=== PATIENT | female | born 1950 | race Caucasian/White ===

== ENCOUNTER → 2022-10-19 | Outpatient (CLI) | payer MEDICARE, SELFPAY ==
[2022-10-19 12:17] LABS: Absolute Lymphocyte Count 0.88 X10^3/uL (0.83-4.51); Absolute Neutrophil Count 5.7 X10^3/uL (2.0-7.7); Basophil# 0.02 X10^3/uL; Basophil% 0.3 % (0-1); Eosinophil# 0.19 X10^3/uL; Eosinophils% 2.6 % (0-5); Hematocrit 43.8 % (37-47); Hemoglobin 14.4 g/dL (12.0-15.0); Lymphocyte # 0.88 X10^3/ul (0.83-4.51); Lymphocyte % 12.1 % (19-41); Mean Corp Hgb Conc 32.9 g/dL (32-36); Mean Corpuscular Hgb 28.6 pg (27.0-32.0); Mean Corpuscular Volume 87.1 fL (81-99); Mean Platelet Vol. 10.7 fl (6.2-12.0); Monocyte# 0.48 X10^3/uL; Monocyte% 6.6 % (0-10); NRBC Flagged by Analyzer 0 % (0-5); Neutrophil % 78.1 % (47-70); Platelet Count 207 K/mm3 (150-450); RBC Distribution Width CV 14.1 % (11.6-14.6); Red Blood Count 5.03 M/mm3 (4.2-5.4); White Blood Count 7.3 K/mm3 (4.4-11.0)
[2022-10-19 12:40] LABS: AST(SGOT) 19 U/L (15-37); Alanine Aminotransfer ALT/SGPT 27 U/L (13-56); Albumin, Serum 3.8 g/dL (3.2-5.0); Alkaline Phosphatase 89 U/L (45-117); Anion Gap 6 (5-15); BUN 23 mg/dL (7-18); BUN/Creat Ratio 19.3 RATIO (10-20); Calcium,Total 9.4 mg/dL (8.5-10.1); Chloride 103 mmol/L (98-107); Cholesterol 149 mg/dL (200); Creatinine, Serum 1.19 mg/dL (0.55-1.02); EST Glomerular Filtration Rate 47 mL/min (>60); Est Glom Filt Rate - Afr Amer 57 mL/min (>60); Globulin 3.9 g/dL (2.2-4.2); Glucose 124 mg/dL (74-106); High Density Lipoprotein 49 mg/dL; Potassium 3.3 mmol/L (3.5-5.1); Protein, Total 7.7 g/dL (6.4-8.2); Sodium Level 140 mmol/L (136-145); T3 Uptake 32 % (30-39); T4 Free Direct 1.12 ng/dL (0.76-1.46); Thyroid Stim Hormone (TSH) 0.91 uIU/mL (0.358-3.74); Triglycerides 192 mg/dL; Very Low Density Lipoprotein 38 mg/dL (5-40)
== END | disposition home or self-care (01) ==
PROVIDERS: PCP Internal Medicine; Referring Provider Internal Medicine; Visit Provider Internal Medicine
DX: I10 Essential (primary) hypertension (principal)
CPT/HCPCS: 36415; 80053; 80061; 84439; 84443; 84479; 85025

== ENCOUNTER → 2023-01-25 | Outpatient (CLI) | payer MEDICARE, SELFPAY ==
[2023-01-25 12:18] LABS: Anion Gap 3 (5-15); BUN 14 mg/dL (7-18); Chloride 102 mmol/L (98-107); Creatinine, Serum 1.08 mg/dL (0.55-1.02); EST Glomerular Filtration Rate 53 mL/min (>60); Est Glom Filt Rate - Afr Amer 64 mL/min (>60); Glucose 123 mg/dL (74-106); Potassium 3.9 mmol/L (3.5-5.1); Sodium Level 137 mmol/L (136-145)
== END | disposition home or self-care (01) ==
LOC: BIMLAB 10:39
PROVIDERS: PCP Internal Medicine; Referring Provider Internal Medicine; Visit Provider Internal Medicine
DX: I10 Essential (primary) hypertension (principal)
CPT/HCPCS: 36415; 80048

== ENCOUNTER → 2024-08-11 | Outpatient (CLI) | payer MEDICARE, SELFPAY ==
--- OUTSIDE RECORDS SUMMARY | 2024-08-11 12:30 | XMS RPT_ITS | CCD ---
Author Organization [facility] Care Team Providers Care Collection Analyst Name Role Phone Fiorella Puente MD Primary Care Provider [phone] Cinthia Puente MD Primary Care Provider Cinthia Puente MD Primary Care Provider Kristin Mariee MD Unavailable [phone] Fiorella Puente MD Primary Care Provider [phone] Fiorella Puente MD Primary Care Provider Unava ilKristin France MD Unavailable [phone] CAITIE ROYAL Attending Unavailable MAR LILLY Referring Unavailable FIORELLA PUENTE Primary Care Unavailable Fiorella Puente MD Primary Care Provider Kristin Mariee MD Unavailable Fiorella Puente MD Primary Care Provider ALIREZA SHAY Attending Unava ilFIORELLA Nelson Primary Care Unavailable Fiorella Puente MD Primary Care Provider KRISTIN MARIEE Attending Unavailable FIORELLA PUENTE Primary Care Unavailable Allergies Allergy Classification Reported Allergen(s) Allergy Type Date of Onset Reaction(s) Facility Adhesive Tape (1 source) Adhesive Tape Substance Allergy 014 Rash [facility] Adrenergic Agonists (1 source) Pseudoephedrine Drug Allergy 016 Unknown [facility] Aminoglycosides (antibiotic) (1 source) Neomycin Drug Allergy 016 Unknown [facility] Amoxicillin / Clavulanate (1 source) Amoxicillin / Clavulanate Drug Allergy 016 Unknown [facility] Angiotensin 2 Receptor Blockers (ARB) (1 source) Losartan Drug Allergy 015 Rash, Swelling [facility] Chlorpheniramine / Phenylephrine / Phenylpropanolamine / phenyltoloxamine (1 source) Chlorpheniramine / Phenylephrine / Phenylpropanolamine / phenyltoloxamine Drug Allergy 016 Unknown [facility] Chlorthalidone (1 source) Chlorthalidone Drug Allergy 024 Shortness of Breath [facility] Contrast Media (2 sources) Contrast media Substance Allergy 014 Hives, Swelling [facility] Furosemide (1 source) Furosemide Drug Allergy 014 Rash [facility] hydroCHLOROthiazide (1 source) hydroCHLOROthiazide Drug Allergy 024 Shortness of Breath [facility] Iodine (and Iodine containting drugs) (1 source) Iodine Drug Allergy 022 Hives [facility] Latex (1 source) Latex Substance Allergy 018 Rash [facility] Lincosamides (antibiotic) (1 source) Clindamycin Drug Allergy 016 Unknown [facility] Macrolides (antibiotic) (1 source) Erythromycin Drug Allergy 016 Unknown [facility] Methenamine (2 sources) Methenamine Drug Allergy 016 Unknown, Other: See Comments [facility] Metoprolol (1 source) Metoprolol Drug Allergy 018 Unknown [facility] Minocycline (1 source) Minocycline Drug Allergy 016 Unknown [facility] Nitrofurantoin (1 source) Nitrofurantoin Drug Allergy 016 Unknown [facility] Opioid Agonists (1 source) HYDROcodone Drug Allergy 016 Unknown [facility] Penicillins (antibiotic) (1 source) Penicillins Drug Allergy 013 Itching, Anaphylaxis [facility] Quinolones (antibiotic) (2 sources) Ciprofloxacin Drug Allergy 015 Rash, Unknown [facility] Work Phone: strawberry allergenic extract (1 source) strawberry allergenic extract Drug Allergy 016 Unknown [facility] Sulfamethoxazole / Trimethoprim (1 source) Sulfamethoxazole / Trimethoprim Drug Allergy 06-07-[address] [facility] Sulfonamides (antibiotic) (1 source) Sulfonamides (Antibiotic) Drug Allergy Itching, Anaphylaxis [facility] (20 sources) Adhesive Tape; Translations: [ADHESIVE TAPE (ROSINS)] Allergy to substance [facility] (20 sources) Amoxicillin / Clavulanate; Translations: [AMOXICILLIN-POT CLAVULANATE] Drug Allergy [facility] (20 sources) Chlorpheniramine / Phenylephrine / Phenylpropanolamine / phenyltoloxamine; Translations: [NALDECON] Drug Allergy [facility] (20 sources) Ciprofloxacin; Translations: [CIPROFLOXACIN] Drug Allergy [facility] Work Phone: (20 sources) Clindamycin; Translations: [CLINDAMYCIN] Drug Allergy [facility] (20 sources) Contrast media; Translations: [CONTRAST DYE] Drug Allergy Hives, Rash [facility] (20 sources) Contrast media; Translations: [RED DYE] Drug Allergy Swelling [facility] (20 sources) Erythromycin; Translations: [ERYTHROMYCIN] Drug Allergy [facility] (20 sources) Furosemide; Translations: [FUROSEMIDE] Drug Allergy [facility] (20 sources) HYDROcodone; Translations: [HYDROCODONE] Drug Allergy [facility] (20 sources) Latex; Translations: [LATEX] Drug Allergy [facility] (20 sources) Losartan; Translations: [LOSARTAN] Drug Allergy Rash, Swelling [facility] Work Phone: (20 sources) Methenamine; Translations: [METHENAMINE MANDELATE] Drug Allergy [facility] (20 sources) Metoprolol; Translations: [METOPROLOL] Drug Allergy [facility] (20 sources) Minocycline; Translations: [MINOCYCLINE] Drug Allergy [facility] (20 sources) moxifloxacin; Translations: [MOXIFLOXACIN] Drug Allergy Unknown [facility] (20 sources) Neomycin; Translations: [NEOMYCIN] Drug Allergy Unknown [facility] (20 sources) Nitrofurantoin; Translations: [NITROFURANTOIN] Drug Allergy Unknown [facility] (19 sources) Penicillins; Translations: [PENICILLINS] Drug Intolerance Itching, Anaphylaxis [facility] (20 sources) Pseudoephedrine; Translations: [PSEUDOEPHEDRINE HCL] Drug Allergy [facility] (20 sources) Shellfish; Translations: [SHELLFISH CONTAINING PRODUCTS] Drug Allergy [facility] (20 sources) strawberry allergenic extract; Translations: [STRAWBERRY] Drug Allergy [facility] (20 sources) Sulfamethoxazole / Trimethoprim; Translations: [SULFAMETHOXAZOLE-TRI METHOPRIM] Drug Allergy [facility] (20 sources) Sulfonamides (Antibiotic); Translations: [SULFA (SULFONAMIDE ANTIBIOTICS)] Drug Intolerance Itching, Anaphylaxis [facility] (20 sources) Penicillins Drug Intolerance Itching, Anaphylaxis [facility] (15 sources) Adhesive agent; Translations: [ADHESIVE] Drug Allergy Rash [facility] (14 sources) Iodine; Translations: [IODINE] Drug Allergy Hives [facility] (14 sources) Methenamine; Translations: [METHENAMINE] Drug Allergy Other: See Comments [facility] (3 sources) IODINATED CONTRAST MEDIA; Translations: [IODINATED CONTRAST MEDIA] Propensity to adverse reactions to drug (disorder) [facility] Other [facility] (4 sources) Chlorthalidone; Translations: [CHLORTHALIDONE] Drug Allergy Shortness of Breath [facility] (4 sources) hydroCHLOROthiazide; Translations: [HYDROCHLOROTHIAZIDE] Drug Allergy Shortness of Breath [facility] Medications Current Medications Medication Drug Class(es) Dates Sig (Normalized) Sig (Original) atenolol 25 mg oral tablet (20 sources) beta-Adrenergic [place] Start: 09-13-2023 End: 03-11-2024 take 1 tablet by mouth once daily atenolol (TENORMIN) 25 mg tablet Take 1 tablet by mouth once daily 90 tablet 3 03/11/2024 Active Start: 02-20-2022 End: 09-22-2022 take 1 tablet by mouth once daily atenolol (TENORMIN) 25 mg tablet Take 1 tablet by mouth once daily 90 tablet 3 09/22/2022 Active Start: 06-21-2021 take 1 tablet by teja th once daily atenolol (TENORMIN) 25 mg tablet Take 1 tablet by mouth once daily. 60 tablet 3 06/21/2021 Active Comment on above: Take 1 tablet by teja th once daily. Take 1 tablet by teja th once daily Blood Pressure Monitor (BLOOD PRESSURE KIT) kit (20 sources) Start: 2017 Blood Pressure Monitor (BLOOD PRESSURE KIT) kit Indications: Essential hypertension 1 Each once daily. 1 Kit 0 06/05/2018 Active Comment on above: 1 Each once daily. cholecalciferol, vitamin D3, (VITAMIN D3 ORAL) (20 sources) cholecalciferol, vitamin D3, (VITAMIN D3 ORAL) Take by mouth. 0 Active Comment on above: Take by mouth. COMPOUNDED PRESCRIPTION (20 sources) Start: 2012 COMPOUNDED PRESCRIPTION bipap machine and all supplies, mask ect Settings 07/13 1 Units 0 06/04/2013 Active Comment on above: bipap machine and al l supplies, mask ect Settings 07/13 famotidine 20 mg oral tablet (1 source) Histamine-2 Receptor Antagonist Start: 2023 End: 2023 take 1 tablet by mouth every twelve hours as needed famotidine (PEPCID) 20 mg tablet Take 1 tablet by mouth two times a day as needed (allergy symptoms) for up to 7 days. 14 tablet 0 12/09/2023 12/16/2023 Active Comment on above: Take 1 tablet by teja th two times a day as needed (allergy symptoms) for up to 7 days. fexofenadine hydrochloride 60 mg oral tablet (20 sources) Histamine-1 Receptor Antagonist Start: 2021 take 1 tablet by mouth once daily fexofenadine (ELIZA ALLERGY) 60 mg tablet Indications: Cough present for greater than 3 weeks Take 1 tablet by mouth once daily. 10 tablet 0 11/17/2021 Active Comment on above: Take 1 tablet by teja th once daily. 12 hr guaiFENesin 600 mg extended release oral tablet (20 sources) Start: 2021 End: 2021 take 1 tablet by mouth twice daily MUCINEX 600 mg 12 hr tablet Indications: Shortness of breath Take 1 tablet by mouth twice daily. 60 tablet 0 01/10/2022 Active Comment on above: Take 1 tablet by teja th twice daily. hydroCHLOROthiazide 25 mg oral tablet (4 sources) Thiazide Diuretic Start: 2023 take 1 tablet by mouth once daily hydroCHLOROthiazide 25 mg tablet Take 1 tablet by mouth once daily. 30 tablet 3 11/29/2023 Active Comment on above: Take 1 tablet by teja th once daily. Magnesium (20 sources) take 2 tablets by mouth once daily Magnesium 200 mg tab Take 2 tablets by mouth once daily. Triple magnesium 400 mg 0 Active Comment on above: Take 2 tablets by mo [facility] once daily. Triple magnesium 400 mg Miscellaneous Medical Supply (20 sources) Start: 2021 Miscellaneous Medical Supply Indications: ARTURO treated with BiPAP [employer] In [employer] Bacterial Filter 5 Each 0 11/23/2021 Active Comment on above: [employer] In [employer] Marco Antonio terial Filter polyethylene glycol 400 4 mg/ml / propylene glycol 3 mg/ml ophthalmic solution (20 sources) PEG 400-Propylen e Glycol (SYSTANE) 0.4-0.3 % dpet Use in both eyes twice daily as needed. 0 Active PEG 400-Propylen e Glycol (SYSTANE) 0.4-0.3 % dpet Use in both eyes twice daily as needed. 0 Active Comment on above: Use in both eyes twi ce daily as needed. potassium chloride 10 meq extended release oral tablet (20 sources) Start: 09-13-2023 End: 03-11-2024 take 1 tablet by mouth once daily potassium chloride (K-TAB) 10 mEq tablet Take 1 tablet by mouth once daily 90 tablet 3 03/11/2024 Active Start: 11-15-2021 End: 06-16-2022 take 1 tablet by mouth once daily potassium chloride (K-TAB) 10 mEq tablet Take 1 tablet by mouth once daily 90 tablet 3 06/16/2022 Active Comment on above: Take 1 tablet by teja th once daily. Take 1 tablet by teja th once daily proparacaine hydrochloride 5 mg/ml ophthalmic solution (1 source) Local Anesthetic Start: 11-07-2022 End: 11-07-2022 proparacaine 0.5 % 1 Drop (ALCAINE) 0.25 mg, 0.5 mg dose 1.5 ml semaglutide 1.34 mg/ml pen injector (12 sources) Start: 10-27-2022 OZEMPIC 0.25 mg or 0.5 mg(2 mg/1.5 mL) pen INJECT 0.25 MG SUBCUTANEOUSLY EVERY WEEK FOR 4 DOSES 0 10/27/2022 Active Comment on above: INJECT 0.25 MG SUBCU TANEOUSLY EVERY WEEK FOR 4 DOSES tropicamide 10 mg/ml ophthalmic solution (1 source) Anticholinergic Start: 11-07-2022 End: 11-07-2022 tropicamide 1 % 1 Drop (MYDRIACYL) Zinc (20 sources) ZINC ORAL Take b y mouth. 0 Active Comment on above: Take by mouth. Completed/Discontinued Medications Medication Drug Class(es) Dates Sig (Normalized) Sig (Original) aspirin 325 mg oral tablet (20 sources) Platelet Aggregation Inhibitor, Nonsteroidal Anti-inflammatory Drug take 325 mg by mouth once daily ASPIRIN ORAL Take 325 mg by mouth once daily. 0 Active Comment on above: Take 325 mg by mouth once daily. chlorthalidone 25 mg oral tablet (20 sources) Thiazide-like Diuretic Start: 03-19-2023 End: 11-29-2023 take 1 tablet by mouth once daily chlorthalidone (HYGROTON) 25 mg tablet Take 1 tablet by mouth once daily. 90 tablet 3 03/19/2023 11/29/2023 Discontinued Start: 10-20-2021 End: 07-07-2022 take 1 tablet by mouth once daily chlorthalidone (HYGROTON) 25 mg tablet Take 1 tablet by mouth once daily 90 tablet 3 07/07/2022 Active Comment on above: Take 1 tablet by teja th once daily. Take 1 tablet by etja th once daily hydrALAZINE hydrochloride 50 mg oral tablet (20 sources) Arteriolar Vasodilator Start: 07-30-20 End: 11-08-19 take 1 tablet by mouth three times daily hydrALAZINE (APRESOLINE) 50 mg tablet Indications: Essential hypertension Take 1 tablet by mouth three times daily. 270 tablet 1 12/22/2022 11/08/2023 Discontinued Comment on above: Take 1 tablet by teja th three times daily. TAKE 1 TABLET BY TEJA TH THREE TIMES DAILY meloxicam 7.5 mg oral tablet (1 source) Nonsteroidal Anti-inflammatory Drug Start: 10-19-19 23 take 1 tablet by mouth once daily meloxicam (MOBIC) 7.5 mg tablet Take 7.5 mg by mouth once daily. 0 10/19/2022 Active Comment on above: Take 7.5 mg by mouth once daily. polyethylene glycol 3350 210675 mg / potassium chloride 2970 mg / sodium bicarbonate 6740 mg / sodium chloride 5860 mg / sodium sulfate 51465 mg powder for oral solution (1 source) Osmotic Laxative Start: 10-25-19 23 GAVILYTE-G 236-22.74-6.74 -5.86 gram suspension as directed. 0 10/25/2022 Active Comment on above: as directed. Problems Active Problems Problem Classification Problem Date Documented Da te Episodic/Chronic Cataract (20 sources) Bilateral pseudophakia; Translations: [Presence of intraocular lens] Onset: 05-10-2018 Resolved: 12-16-2019 03-29-2020 Chronic Essential hypertension (20 sources) Essential hypertension; Translations: [Essential (primary) hypertension] 12-01-2019 Chronic Inflammation; infection of eye (except that caused by tuberculosis or sexually transmitteddisease) (20 sources) Bilateral punctate keratitis of eyes; Translations: [Punctate keratitis, bilateral] Onset: 05-10-2018 05-10-2018 Chronic Other circulatory disease (2 sources) Carotid bruit; Translations: [Other specified symptoms and signs involving the circulatory and respiratory systems] Episodic Other connective tissue disease (20 sources) Fibromyalgia; Translations: [Fibromyalgia] 01-16-2014 Episodic Other diseases of veins and lymphatics (20 sources) Lymphedema praecox; Translations: [Lymphedema, not elsewhere classified] Onset: 03-15-2020 03-15-2020 Chronic Other eye disorders (20 sources) Bilateral vitreous floaters; Translations: [Other vitreous opacities, bilateral] Onset: 05-10-2018 05-10-2018 Chronic Other eye disorders (1 source) Tear film insufficiency; Translations: [Dry eye syndrome of bilateral lacrimal glands] Episodic Other lower respiratory disease (1 source) Dyspnea; Translations: [Shortness of breath] Episodic Other nutritional; endocrine; and metabolic disorders (20 sources) Morbid obesity; Translations: [Morbid (severe) obesity due to excess calories] Onset: 10-10-2016 10-10-2016 Chronic Other nutritional; endocrine; and metabolic disorders (20 sources) Body mass index 40+ - severely obese; Translations: [Morbid (severe) obesity due to excess calories] Onset: 06-14-2018 06-14-2018 Chronic Residual codes; unclassified (20 sources) Sleep apnea; Translations: [Sleep apnea, unspecified] Onset: 05-20-2013 10-03-2021 Chronic Residual codes; unclassified (2 sources) Obstructive sleep apnea syndrome; Translations: [Obstructive sleep apnea (adult) (pediatric)] Chronic Residual codes; unclassified (1 source) Active advance directive (copy within chart) ; Translations: [Other specified health status] Episodic Past or Other Problems Problem Classification Problem Date Documented Da te Episodic/Chronic Allergic reactions (20 sources) Allergy to drug; Translations: [Allergy status to unspecified drugs, medicaments and biological substances status] Onset: 10-10-2016 10-10-2016 Episodic Blindness and vision defects (20 sources) Regular astigmatism of left eye; Translations: [Regular astigmatism, left eye] Onset: 07-28-2019 07-28-2019 Episodic Blindness and vision defects (20 sources) Regular astigmatism of right eye; Translations: [Regular astigmatism, right eye] Onset: 07-28-2019 07-28-2019 Episodic Cancer of colon (20 sources) History of malignant neoplasm of colon; Translations: [Personal history of other malignant neoplasm of large intestine] Onset: 10-10-2016 10-10-2016 Episodic Other eye disorders (20 sources) H/O: R cataract extraction; Translations: [Cataract extraction status, right eye] Onset: 08-07-2019 12-16-2019 Episodic Residual codes; unclassified (20 sources) Edema; Translations: [Edema, unspecified] Onset: 12-26-2013 12-26-2013 Episodic Residual codes; unclassified (20 sources) Edema of lower extremity; Translations: [Localized edema] Onset: 01-18-2022 Resolved: 02-08-2024 Episodic Retinal detachments; defects; vascular occlusion; and retinopathy (20 sources) 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 02-08-2024 CNOV Office Visit (CARDST ) ----- PERCY WARE ([id number]) 1950 F Date Time Provider Department 02/08/24 2:00 PM KRISTIN MARIEE CARDSOmega During your visit today, we recorded the following information about you: Pulse Respiration Blood pressure Weight 100/minute 20/minute 136/82 135.2 kg Height 1.6 m Kristin Mariee MD 02/08/2024 2:39 PM [facility] [place] [facility] Department of Cardiovascular Medicine SECTION OF [facility] CARDIOLOG[facility] 02/08/2024 OUTPATIENT VISIT TYPE Established F/Up regarding Hypertension and ARTURO, medication noncompliance with multiple allergies. HISTORY OF PRESENT ILLNESS: Ms. 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 used homeopathic medications) in 1993 as she has at least 23 medical drug allergies noted in the chart and has occasional SOB and palpitations. Her blood pressure at home is between 135-140 mmHg while she is taking chlorthalidone 25 mg daily and hydralazine 50 mg 2 times a day. She is here today for HTN and ARTURO management. Patient states that last week she had a headache and elevated BP in the 140 systolic range and it remained that way for three days and took an extra dose of hydralazine and then resolved. Patient has no symptoms of chest pain. Patient has mild exertional shortness of breath. Dizziness - No Palpitations - No Leg edema - yes, but patient states it is improving as he is using a pump which was given to her by physical therapy for the leg swelling. Fatigue - No Snoring - sleep apnea - Yes, she claims to use BiPAP mask regularly at night. Patient drinks 1 - 2 cups of tea or caffeine containing beverages per day Patient does not smoke tobacco products. Patient drinks socially / uses small amount of alcohol periodically Patient denies recreational drug use / abuse. Social History Tobacco Use Smoking status: Never Smokeless tobacco: Never Vaping Use Vaping Use: Never used Substance Use Topics Alcohol use: No Drug use: No FAMILY HISTORY Problem Relation Age of Onset Diabetes Father Hypertension Father No Ocular Disease No Family History Cataract No Family History Glaucoma No Family History Detached Retina No Family History REVIEW OF SYSTEMS: SYSTEMIC: No fever, chills, or change in weight or appetite HEENT: No recent change in vision or hearing. Respiratory: No hemoptysis, cough. CARDIOVASCULAR: See HPI. GI: No recent nausea, vomiting or diarrhea. : No recent hematuria or dysuria. SKIN: No recent itching or eruption. PSYCH: No recent active anxiety or depression. HEMATOLOGY/ONCOLOGY: No recent diagnosis of bleeding or cancer. ENDOCRINE: No recent polyuria or heat intolerance. NEURO: No recent TIA, stroke or seizures. RHEUMATOLOGY: No recent active connective tissue disease. Rest of the review of system is unremarkable. PAST MEDICAL HISTORY Diagnosis Date Cancer (HCC) lung and liver Colon cancer (HCC) Fibromyalgia Hypertension Stroke (HCC) PAST SURGICAL HISTORY Procedure Laterality Date COLON SURGERY HX COLONOSCOPY FLX DX W/COLLJ SPEC WHEN PFRMD 2010 Colonoscopy HYSTERECTOMY HX KNEE SURGERY HX Left 2009 XCAPSL CTRC RMVL INSJ IO LENS PROSTH W/O ECP Left 08/06/2019 Cataract Extraction with PC IOL / LRI XCAPSL CTRC RMVL INSJ IO LENS PROSTH W/O ECP Right 12/11/2019 Cataract Extraction with PC (TORIC) IOL ALLERGIES Allergen Reactions Iodine [Contrast Dy* Hives Lasix [Furosemide] Rash Penicillins Itching, Anaphylaxis Red Dye Swelling Sulfa (Sulfonamide * Itching, Anaphylaxis Tape [Adhesive Tape* Rash Adhesive Rash Amoxicillin-Pot Cla* Unknown Chlorthalidone Shortness of Breath Ciprofloxacin Rash Clindamycin Unknown Erythromycin Unknown Hydrochlorothiazide Shortness of Breath Hydrocodone Unknown Iodinated Contrast * Rash Latex Rash Losartan Rash, Swelling Mandelamine [Methe* Unknown Methenamine Other: See Comments Metoprolol Unknown Minocycline Unknown Moxifloxacin Unknown Naldecon Unknown Neomycin Unknown Nitrofurantoin Unknown Pseudoephedrine Hcl Unknown Shellfish Containin* Unknown [place] Unknown Sulfamethoxazole-Tr* Unknown Iodine Hives CURRENT MEDICATIONS: hydrALAZINE (APRESOLINE) 50 mg tablet Take 50 mg by mouth as needed. Miscellaneous Medical Supply [employer] In Line Bacterial Filter Blood Pressure Monitor (BLOOD PRESSURE KIT) kit 1 Each once daily. COMPOUNDED PRESCRIPTION bipap machine and all supplies, mask ect Settings 07/13 atenolol (TENORMIN) 25 mg tablet Take 1 tablet by mouth once daily (Patient not taking: Reported on 02/08/2024) potassium chloride (K-TAB) 10 mEq tablet Take 1 tablet by mouth once daily (Patient not taking: Reported on 02/08/2024) hydroCHLOROth (more content not included)... Normal [facility] ECG COMPLETEon 02-08-2024 Atrial Rate 100 BPM [facility] Calculated [place] 60 degrees [facility] Calculated [place] 111 degrees [facility] Calculated [place] 26 degrees [facility] P-R Interval 174 ms [facility] QRS Duration 106 ms [facility] QT Interval 372 ms [facility] QTC Calculation (Bazett) 479 ms [facility] Ventricular Rate 100 BPM [facility] NORMAL SINUS RHYTHM POSSIBLE LEFT ATRIAL ENLARGEMENT INCOMPLETE RIGHT BUNDLE BRANCH BLOCK LEFT POSTERIOR FASCICULAR BLOCK ABNORMAL ECG Confirmed by LUZMA FARIA MD ([id number]) on 02/08/2024 2:58:55 PM [facility] NAME : PERCY WARE PID : [id number] : 1950 Gender : Female Race : ORD : [id number] Procedure Date : Feb 08 2024 14:05:48 Edit Date : Feb 08 2024 14:58:56 Diagnosis: NORMAL SINUS RHYTHM POSSIBLE LEFT ATRIAL ENLARGEMENT INCOMPLETE RIGHT BUNDLE BRANCH BLOCK LEFT POSTERIOR FASCICULAR BLOCK ABNORMAL ECG Confirmed by LUZMA FARIA MD ([id number]) on 02/08/2024 2:58:55 PM Test Reason : I10 Essential hypertension Location : 137 : STCARD Overread By : LUZMA FARIA MD Edited By : LUZMA FARIA MD Referred By : Tata MARIEE Acquired by : , [facility] [id number] 02-08-2024 ECG01 Ventricular Rate : 1 00 BPM Atrial Rate : 100 BPM P-R Interval : 174 ms QRS Duration : 106 ms Q-T Interval : 372 ms QTC Calculation(Bazett) : 479 ms Calculated [place] : 60 degrees Calculated [place] : 111 degrees Calculated [place] : 26 degrees NORMAL SINUS RHYTHM POSSIBLE LEFT ATRIAL ENLARGEMENT INCOMPLETE RIGHT BUNDLE BRANCH BLOCK LEFT POSTERIOR FASCICULAR BLOCK ABNORMAL ECG Confirmed by LUZMA FARIA MD ([id number]) on 02/08/2024 2:58:55 PM NAME : PERCY WARE PID : [id number] : 1950 Gender : Female Race : ORD : [id number] Procedure Date : Feb 08 2024 14:05:48 Edit Date : Feb 08 2024 14:58:56 Diagnosis: NORMAL SINUS RHYTHM POSSIBLE LEFT ATRIAL ENLARGEMENT INCOMPLETE RIGHT BUNDLE BRANCH BLOCK LEFT POSTERIOR FASCICULAR BLOCK ABNORMAL ECG Confirmed by LUZMA FARIA MD ([id number]) on 02/08/2024 2:58:55 PM Test Reason : I10 Essential hypertension Location : 137 : STCARD Overread By : LUZMA FARIA MD Edited By : LUZMA FARIA MD Referred By : Tata MARIEE Acquired by : Rebecca [facility] ED NOTEon 12-09-2023 ED NOTE HNO ID: [id number] Author: BALDEV GOEL, YANIRA Service: ? Author Type: Registered Nurse Type: ED Notes Filed: 12/10/2023 09:44 Note Text: Patient Call Back Information How are you doing ? no change Did we appropriately manage your pain? N/A Did you understand your discharge instructions? Yes Did you get your prescriptions filled? No Were you able to make a follow-up appointment with your physician? No Were you comfortable during your stay here? Yes Did a member of the ER nursing team round on you during your visit? Yes You will receive a patient satisfaction survey in the mail in the nest 2 weeks, please take the time to fill out the survey as your input from your ER visit is very important to us. Yes Can we do anything else to help you? No Normal [facility] ED NOTE HNO ID: [id number] Author: ERUM KELLEY RN Service: Emergency Medicine Author Type: Registered Nurse Type: ED Notes Filed: 12/09/2023 21:48 Note Text: Patient refused PO benadryl d/t only takes dye-free. Dr Shay advised. Patient can take her own benadryl when she gets home. Dc instr to fu w pmd, return prn. Patient is AANDO, wdp, resps appear unlabored. Does not appear to be in any distress. Ambulates from ER with her own walker Normal [facility] ED NOTE HNO ID: [id number] Author: JONELLE PERALTA, RN Service: Emergency Medicine Author Type: Registered Nurse Type: ED Notes Filed: 12/09/2023 20:15 Note Text: Pt to ED with c/o I think I am having an allergic reaction to hydrochlorothiazide I started this morning at 7am., I started feeling itchy so I took a benadryl around 9am, then tonight it started itching worse, feeling like my throat is thick, some chest pressure and shortness of breath, so I took one more benadryl, but it hasn't done much. Pt able to speak in full sentences without distress. Normal [facility] ED PROV NOTEon 12-09-2023 ED PROV NOTE HNO ID: [id number] Author: ALIREZA SHAY MD Service: Emergency Medicine Author Type: Physician Type: ED Provider Notes Filed: 12/10/2023 01:43 Note Text: ED Provider Note Patient Name: Percy Ware : 1950 SERVICE DATE: 12/09/23 History Patient presents with: Allergic Reaction Shortness of Breath Patient presents to the ED with her with concerns over an allergic reaction. Patient was just recently started on hydrochlorothiazide from chlorthalidone because of concerns for an allergy to this as well. Patient took her first dose of HCTZ this morning and shortly after she began having all over body itching associated with shortness of breath and chest tightness. She took 25mg of benadryl initially this morning and had initial remittent symptoms, however this evening, her symptoms came back and she came to the emergency department. Patient currently denies chest pain, and she states overall her symptoms are improving. Shortness of Breath Severity: Mild Duration: 1 day Timing: Intermittent Chronicity: Recurrent Relieved by: benadryl. Worsened by: Nothing Associated symptoms: no chest pain, no cough, no fever, no rash, no vomiting and no wheezing PAST MEDICAL HISTORY Diagnosis Date Cancer (HCC) lung and liver Colon cancer (HCC) Fibromyalgia Hypertension Stroke (HCC) PAST SURGICAL HISTORY Procedure Laterality Date COLON SURGERY HX COLONOSCOPY FLX DX W/COLLJ SPEC WHEN PFRMD 2009 Colonoscopy HYSTERECTOMY HX KNEE SURGERY HX Left 2009 XCAPSL CTRC RMVL INSJ IO LENS PROSTH W/O ECP Left 08/06/2019 Cataract Extraction with PC IOL / LRI XCAPSL CTRC RMVL INSJ IO LENS PROSTH W/O ECP Right 12/11/2019 Cataract Extraction with PC (TORIC) IOL FAMILY HISTORY Problem Relation Age of Onset Diabetes Father Hypertension Father No Ocular Disease No Family History Cataract No Family History Glaucoma No Family History Detached Retina No Family History Social History Tobacco Use Smoking status: Never Smokeless tobacco: Never Vaping Use Vaping Use: Never used Substance and Sexual Activity Alcohol use: No Drug use: No Sexual activity: Not on file Comment: Not asked at this visit ALLERGIES Allergen Reactions Iodine [Contrast Dy* Hives Lasix [Furosemide] Rash Penicillins Itching, Anaphylaxis Red Dye Swelling Sulfa (Sulfonamide * Itching, Anaphylaxis Tape [Adhesive Tape* Rash Adhesive Rash Amoxicillin-Pot Cla* Unknown Chlorthalidone Shortness of Breath Ciprofloxacin Rash Clindamycin Unknown Erythromycin Unknown Hydrochlorothiazide Shortness of Breath Hydrocodone Unknown Iodinated Contrast * Rash Latex Rash Losartan Rash, Swelling Mandelamine [Methe* Unknown Methenamine Other: See Comments Metoprolol Unknown Minocycline Unknown Moxifloxacin Unknown Naldecon Unknown Neomycin Unknown Nitrofurantoin Unknown Pseudoephedrine Hcl Unknown Shellfish Containin* Unknown [place] Unknown Sulfamethoxazole-Tr* Unknown Iodine Hives Review of Systems Constitutional: Negative for fatigue and fever. HENT: Negative for trouble swallowing and voice change. Respiratory: Positive for shortness of breath. Negative for cough, choking, chest tightness and wheezing. Cardiovascular: Negative for chest pain and palpitations. Gastrointestinal: Negative for nausea and vomiting. Skin: Negative for rash. pruritus Physical Exam Vitals [12/09/232002] BP Pulse Temp Temp src Resp SpO2 Weight Height 177/84 82 36.8 ?C (98.3 ?F) Temporal 20 99 % (!) 137.1 kg (302 lb 3.2 oz) 1.575 m (5' 2 ) Physical Exam Vitals and nursing note reviewed. Constitutional: General: She is not in acute distress. Appearance: Normal appearance. She is not ill-appearing or toxic-appearing. HENT: Head: Normocephalic and atraumatic. Eyes: General: Right eye: No discharge. Left eye: No discharge. Neck: Thyroid: No thyromegaly. Cardiovascular: Rate and Rhythm: Normal rate and regular rhythm. Heart sounds: No murmur heard. Pulmonary: Effort: Pulmonary effort is normal. No tachypnea or respiratory distress. Breath sounds: No decreased breath sounds, wheezing, rhonchi or rales. Musculoskeletal: Cervical back: Normal range of motion and neck supple. Right lower leg: No tenderness. Edema present. Left lower leg: No tenderness. Edema present. Lymphadenopathy: Cervical: No cervical adenopathy. Skin: General: Skin is warm and dry. Findings: No erythema or rash. Neurological: General: No focal deficit present. Mental Status: She is alert and oriented to person, place, and time. Mental status is at baseline. Psychiatric: Mood and Affect: Mood normal. Behavior: Behavior normal. Diagnostic Testing ED Labs Ordered and Reviewed - No data to display Procedures ED Course / Clinical Impression Clinical Impressions as of 12/10/23 0126 Allergic reaction, initial encounter - concern fo (more content not included)... Normal [facility] [place] [facility] CNPN Telephone (CARDST) ----- PERCY WARE ([id number]) 1950 F Date Time Provider Department 11/29/23 KRISTIN MARIEE CARDST During your visit today, we recorded the following information about you: Casandra Manley 11/29/2023 11:33 AM Signed Patient calling in regards to the chlorthalidone (HYGROTON) 25 mg tablet 90 tablet 3 03/19/2023 -- Sig: Take 1 tablet by mouth once daily. Sent to pharmacy as: chlorthalidone (HYGROTON) 25 mg tablet Class: Normal Route: ORAL Order: [id number] E-Prescribing Status: Receipt confirmed by pharmacy (03/19/2023 4:09 PM EDT) Stating the maternal child nurse has been changed and since she has had a reaction to the medicine with itching face eyes etc, patient did have to take benadryl and will not take this until it is figured out. The original maternal child nurse NIZAGEN please advise. She can not take ASCEND maternal child nurse Lay Estrella RN 11/29/2023 11:41 AM Signed Forward to Kristin Walter MD 11/29/2023 4:40 PM Signed He can take hydrochlorothiazide [address] of chlorthalidone I have sent her prescription to [facility] pharmacy today. Annamango Abiola Vargas 11/29/2023 5:03 PM Signed Before starting another medication patient would like to speak with Dr. Mariee or his nurse. She has questions and concerns. She can be reached at [phone]. Lay Estrella RN 11/30/2023 9:07 AM Signed Spoke to pt Reviewed medication change advised per Dr Mariee She is a bit agitated and does not want to begin new medicine yet, she wants to let her body get over the allergic reaction she had. She states that her throat was itching and she had to take Benadryl from the new manufactured medication. She currently denies any distress. She will begin the HCTZ on Sunday and let us know how it goes 16 minute phone discussion Lay Estrella RN 11/30/2023 4:14 PM Signed Kristin Mariee MD You 10 minutes ago (4:01 PM) She has 26 medication allergies. Thanks for re-assuring her. Kristin Allergies As of Date: 11/29/2023 Noted Allergy Reaction IODINE (CONTRAST DYE) 01/09/2014 4 - Hives LASIX (FUROSEMIDE) 12/29/2013 2 - Rash PENICILLINS 05/19/2013 9 - Itching 10 - Anaphylaxis RED DYE 01/09/2014 7 - Swelling SULFA (SULFONAMIDE ANTIBIOTICS) 05/19/2013 9 - Itching 10 - Anaphylaxis TAPE (ADHESIVE TAPE (ROSINS)) 01/09/2014 2 - Rash ADHESIVE 03/23/2022 2 - Rash AMOXICILLIN-POT CLAVULANATE 03/14/2016 16 - Unknown CIPROFLOXACIN 12/14/2014 2 - Rash CLINDAMYCIN 03/14/2016 16 - Unknown ERYTHROMYCIN 03/14/2016 16 - Unknown HYDROCODONE 03/14/2016 16 - Unknown IODINATED CONTRAST MEDIA 05/23/2022 2 - Rash LATEX 05/10/2018 2 - Rash LOSARTAN 12/14/2014 2 - Rash 7 - Swelling Mandelamine (METHENAMINE MANDELA*03/14/2016 16 - Unknown METHENAMINE 03/23/2022 14 - Other: See Comments METOPROLOL 05/14/2018 16 - Unknown MINOCYCLINE 03/14/2016 16 - Unknown MOXIFLOXACIN 03/14/2016 16 - Unknown NALDECON 03/14/2016 16 - Unknown NEOMYCIN 03/14/2016 16 - Unknown NITROFURANTOIN 03/14/2016 16 - Unknown PSEUDOEPHEDRINE HCL 03/14/2016 16 - Unknown SHELLFISH CONTAINING PRODUCTS 03/14/2016 16 - Unknown STRAWBERRY 03/14/2016 16 - Unknown SULFAMETHOXAZOLE-TRIMETHO PRIM 03/14/2016 16 - Unknown IODINE 03/23/2022 4 - Hives Date Reviewed: 11/22/2022 Reviewed by: Andria Gaines (Rn), RN - Fully Assessed Reason for Visit: reaction to medication [Other] Order(s):hydroCHLOROthiaz sang 25 mg tabletTake 1 tablet by mouth once daily.Disp: 30 tabletRfl: 3 Prescriptions as of 11/30/2023 - hydroCHLOROthiazide 25 mg tablet Take 1 tablet by mouth once daily. - atenolol (TENORMIN) 25 mg tablet Take 1 tablet by mouth once daily - potassium chloride (K-TAB) 10 mEq tablet Take 1 tablet by mouth once daily - OZEMPIC 0.25 mg or 0.5 mg(2 mg/1.5 mL) pen INJECT 0.25 MG SUBCUTANEOUSLY EVERY WEEK FOR 4 DOSES - MUCINEX 600 mg 12 hr tablet Take 1 tablet by mouth twice daily. - [employer] In Line Bacterial Filter - fexofenadine (ELIZA ALLERGY) 60 mg tablet Take 1 tablet by mouth once daily. - PEG 400-Propylene Glycol (SYSTANE) 0.4-0.3 % dpet Use in both eyes twice daily as needed. - ZINC ORAL Take by mouth. - cholecalciferol, vitamin D3, (VITAMIN D3 ORAL) Take by mouth. - Magnesium 200 mg tab Take 2 tablets by mouth once daily. Triple magnesium 400 mg - Blood Pressure Monitor (BLOOD PRESSURE KIT) kit 1 Each once daily. - COMPOUNDED PRESCRIPTION bipap machine and all supplies, mask ect Settings 07/13 Problem List As Of Date 11/29/2023 Noted Resolved Sleep apnea [G47.30] 05/20/2013 Edema [R60.9] 12/26/2013 Fibromyalgia [M79.7] Essential hypertension [I10] Morbid obesity due to excess calories (HCC) [E6*10/10/2016 History of colon cancer, stage IV [Z85.038] 10/10/2016 Personal history of allergy to medicinal agent *10/10/2016 Combined forms of age-re (more content not included)... 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 PT notified the next opening was January 06 if she wanted to reschedule. PT would like to speak with a nurse to decide if she should be seen next week or if she can wait. Please contact patient at [phone] Nya Hampton, YANIRA 11/08/2023 11:46 AM Signed Called patient. Had in depth conversation with patient. Patient stated she is a long hauler COVID patient. C/o on going fatigue and cough. Denies new or worsening symptoms . Stated she has seen her PCP every 3-4 months (out of network) and stated provider has assessed and addressed. No new concerns. Patient expressed hesitation about coming into office for 11/12/2023 appointment. Doesn't wish to get expose to any illness going around. Patient aware appointment can be switched to virtual instead. Patient requesting to reschedule to a later date so she is able to rest and avoid any illnesses's. Patient accepted next available Dr. Mariee , 02/2024. Patient informed if any new symptoms or concerns to update office for sooner appointment. Patient verbalized understanding. Patient stated she hasn't been taking hydralazine 50mg for at least a year. BP has been good at home, readings 120's/70's, HR 60-70's. KENIA note: 05/29/2022 HTN: - 132/84 in office today controlled with hydralazine 50 mg once daily (pt taking this dose on her own) and chlorthalidone 25 mg one time a day. If BP is uncontrolled will increase hydralazine to 50mg two to three times daily. - atenolol 25 mg once daily to decrease blood pressure and heart rate. Patient aware will forward update to Dr. Fito Mariee, Kristin Swann MD 11/08/2023 6:01 PM Signed Noted, I discontinued hydralazine in the medication record. Allergies As of Date: 11/08/2023 Noted Allergy Reaction IODINE (CONTRAST DYE) 01/09/2014 4 - Hives LASIX (FUROSEMIDE) 12/29/2013 2 - Rash PENICILLINS 05/19/2013 9 - Itching 10 - Anaphylaxis RED DYE 01/09/2014 7 - Swelling SULFA (SULFONAMIDE ANTIBIOTICS) 05/19/2013 9 - Itching 10 - Anaphylaxis TAPE (ADHESIVE TAPE (ROSINS)) 01/09/2014 2 - Rash ADHESIVE 03/23/2022 2 - Rash AMOXICILLIN-POT CLAVULANATE 03/14/2016 16 - Unknown CIPROFLOXACIN 12/14/2014 2 - Rash CLINDAMYCIN 03/14/2016 16 - Unknown ERYTHROMYCIN 03/14/2016 16 - Unknown HYDROCODONE 03/14/2016 16 - Unknown IODINATED CONTRAST MEDIA 05/23/2022 2 - Rash LATEX 05/10/2018 2 - Rash LOSARTAN 12/14/2014 2 - Rash 7 - Swelling Mandelamine (METHENAMINE MANDELA*03/14/2016 16 - Unknown METHENAMINE 03/23/2022 14 - Other: See Comments METOPROLOL 05/14/2018 16 - Unknown MINOCYCLINE 03/14/2016 16 - Unknown MOXIFLOXACIN 03/14/2016 16 - Unknown NALDECON 03/14/2016 16 - Unknown NEOMYCIN 03/14/2016 16 - Unknown NITROFURANTOIN 03/14/2016 16 - Unknown PSEUDOEPHEDRINE HCL 03/14/2016 16 - Unknown SHELLFISH CONTAINING PRODUCTS 03/14/2016 16 - Unknown STRAWBERRY 03/14/2016 16 - Unknown SULFAMETHOXAZOLE-TRIMETHO PRIM 03/14/2016 16 - Unknown IODINE 03/23/2022 4 - Hives Date Reviewed: 11/22/2022 Reviewed by: Andria Gaines (Rn), RN - Fully Assessed Reason for Visit: Question [1327] Cmt: See note Prescriptions as of 11/08/2023 - atenolol (TENORMIN) 25 mg tablet Take 1 tablet by mouth once daily - potassium chloride (K-TAB) 10 mEq tablet Take 1 tablet by mouth once daily - chlorthalidone (HYGROTON) 25 mg tablet Take 1 tablet by mouth once daily. - OZEMPIC 0.25 mg or 0.5 mg(2 mg/1.5 mL) pen INJECT 0.25 MG SUBCUTANEOUSLY EVERY WEEK FOR 4 DOSES - MUCINEX 600 mg 12 hr tablet Take 1 tablet by mouth twice daily. - M[employer] In Line Bacterial Filter - fexofenadine (ELIZA ALLERGY) 60 mg tablet Take 1 tablet by mouth once daily. - PEG 400-Propylene Glycol (SYSTANE) 0.4-0.3 % dpet Use in both eyes twice daily as needed. - ZINC ORAL Take by mouth. - cholecalciferol, vitamin D3, (VITAMIN D3 ORAL) Take by mouth. - Magnesium 200 mg tab Take 2 tablets by mouth once daily. Triple magnesium 400 mg - Blood Pressure Monitor (BLOOD PRESSURE KIT) kit 1 Each once daily. - COMPOUNDED PRESCRIPTION bipap machine and all supplies, mask ect Settings 07/13 Problem List As Of Date 11/08/2023 Noted Resolved Sleep apnea [G47.30] 05/20/2013 Edema [R60.9] 12/26/2013 Fibromyalgia [M79.7] Essential hypertension [I10] Morbid obesity due to excess calories (HCC) [E6*10/10/2016 History of colon cancer, stage IV [Z85.038] 10/10/2016 Personal history of allergy to medicinal agent *10/10/2016 Combined forms of age-related cataract of b (more content not included)... Normal [facility] ANES POSTPROC EVALon 023 ANES POSTPROC EVAL HNO ID: [id number] Author: Caitie Royal MD Service: ? Author Type: Anesthesiologist Type: Anesthesia Postprocedure Evaluation Filed: 11/22/2022 11:00 AM Note Text: POST ANESTHESIA EVALUATION NOTE : 1950 Procedure Summary Date: 11/22/22 Room / Location: [facility] Anesthesia Start: 819 Anesthesia Stop: 08 Procedure: COLONOSCOPY SCREENING Diagnosis: Personal history of colon cancer Scheduled Providers: Mar Lilly MD; Clau Loza APRN.FISHERIES OFFICER; Caitie Royal MD Responsible Provider: Caitie Royal MD Anesthesia Type: MAC ASA Status: 3 Anesthesia Type: MAC Last Vitals Vitals Value Taken Time BP 120/65 11/22/22 0930 Temp 36.6 ?C (97.9 ?F) 11/22/22 0857 Pulse 60 11/22/22 0945 Resp 14 11/22/22 0945 SpO2 93 % 11/22/22 0945 Post Anesthesia Patient Status Patient Evaluation: bedside. Anticipated Disposition: phase 2 then home. Neurological Status: aware and responsive. Pulmonary Status: breathing comfortably on room air Airway Control: returned to baseline unsupported. Cardiovascular Status: stable. Pain Management: clinically adequate Postoperative Hydration: acceptable. Intraoperative Events: no significant anesthesia events Post Operative Nausea/Vomiting Status: no significant post operative nausea or vomiting Recommendation: continue current plan of care. Anesthesia Observations No Documentation SIGNATURE: Caitie Royal MD PATIENT NAME: Percy Ware DATE: November 22, 2022 TIME: 10:59 AM CSN: [id number] Normal [facility] ANES PRE-OPon 11-22-2022 ANES PRE-OP HNO ID: [id number] Author: Caitie Royal MD Service: ? Author Type: Anesthesiologist Type: Anesthesia Preprocedure Evaluation Filed: 11/22/2022 8:27 AM Note Text: ANESTHESIOLOGY DAY OF SURGERY NOTE : 1950 Procedure Information Anesthesia Start Date/Time: 11/22/22 0820 Scheduled providers: Mar Lilly MD; Clau Loza APRN.FISHERIES OFFICER; Caitie Royal MD Procedure: COLONOSCOPY SCREENING Location: [facility] Estimated body mass index is 59.81 kg/m? as calculated from the following: Height as of 05/29/22: 157.5 cm (5' 2 ). Weight as of 05/29/22: 148.3 kg (327 lb). Most recent hematocrit and potassium results: Hematocrit 43.9 08/25/2022 Potassium 4.0 08/25/2022 Relevant Problems ANESTHESIA (+) Sleep apnea (CPAP nightly.) CARDIO (+) Essential hypertension (-) Angina at rest (HCC) (-) Angina of effort (HCC) NEURO-PSYCH (+) History of colon cancer, stage IV PULMONARY (+) Sleep apnea (CPAP nightly.) I - PHYSICAL EVALUATION AIRWAY Patient intubated: No. Tracheostomy tube not present Mallampati: II. TM distance: >3 FB. Neck ROM: full ROM without neurological symptoms. Mouth opening: adequate. Short neck: yes. Thick neck: yes Reyes present: yes DENTAL Dental findings: teeth intact. II - ANESTHESIA PLAN ASA Score: 3 Anesthetic Plan: MAC The patient is not a current smoker. NPO Status: adequate Beta German Monitoring Plan Monitoring plan: standard ASA. Post Procedure Analgesic Plan Postoperative analgesic plan: multimodal analgesia. Informed Consent Anesthetic risks, benefits, alternatives, personnel and consent discussed: yes. Patient / Responsible Green Party agrees to proceed: yes Patient / Surrogate agrees to blood products: Yes DNR status not reviewed with patient and/or family prior to surgery. Significant changes in the patient condition since the History and Physical, not otherwise documented in primary service progress note: no. Potential Anesthesia issues that may suggest increased risk of complications or contraindication to planned procedure: none. Vitals Value Taken Time BP 159/77 11/22/22813 Pulse 77 11/22/22813 Resp 20 11/22/22813 Temp 37.1 ?C (98.8 ?F) 11/22/22813 SpO2 96 % 11/22/22813 Outpatient Medications as of 11/22/2022 Medication Sig - meloxicam (MOBIC) 7.5 mg tablet Take 7.5 mg by mouth once daily. - GAVILYTE-G 236-22.74-6.74 -5.86 gram suspension as directed. - atenolol (TENORMIN) 25 mg tablet Take 1 tablet by mouth once daily - chlorthalidone (HYGROTON) 25 mg tablet Take 1 tablet by mouth once daily - hydrALAZINE (APRESOLINE) 50 mg tablet TAKE 1 TABLET BY MOUTH THREE TIMES DAILY - PEG 400-Propylene Glycol (SYSTANE) 0.4-0.3 % dpet Use in both eyes twice daily as needed. - ZINC ORAL Take by mouth. - Magnesium 200 mg tab Take 2 tablets by mouth once daily. Triple magnesium 400 mg - OZEMPIC 0.25 mg or 0.5 mg(2 mg/1.5 mL) pen INJECT 0.25 MG SUBCUTANEOUSLY EVERY WEEK FOR 4 DOSES - potassium chloride (K-TAB) 10 mEq tablet Take 1 tablet by mouth once daily - MUCINEX 600 mg 12 hr tablet Take 1 tablet by mouth twice daily. - Miscellaneous [employer] In Line Bacterial Filter - fexofenadine (ELIZA ALLERGY) 60 mg tablet Take 1 tablet by mouth once daily. - cholecalciferol, vitamin D3, (VITAMIN D3 ORAL) Take by mouth. - Blood Pressure Monitor (BLOOD PRESSURE KIT) kit 1 Each once daily. - ASPIRIN ORAL Take 325 mg by mouth once daily. - COMPOUNDED PRESCRIPTION bipap machine and all supplies, mask ect Settings 07/13 No current facility-administered medications on file as of 11/22/2022. I have interviewed and examined the patient. I have reviewed the medical record and/or the pre-anesthesia evaluation, pertinent labs, and test results. This contains updated information obtained within 48 hours of Surgery/Procedure. SIGNATURE: Caitie Royal MD PATIENT NAME: Percy Ware DATE: November 22, 2022 TIME: 8:27 AM CSN: [id number] [facility] BRIEF OP NOTon 11-22-2022 BRIEF OP NOT HNO ID: [id number] Author: Mar Lilly MD Service: Gastroenterology Author Type: Physician Type: Brief Op Note Filed: 11/22/2022 8:59 AM Note Text: BRIEF OPERATIVE NOTE LOG ID: [id number] SURGERY/PROCEDURE DATE: 11/22/2022 INCISION/PROCEDURE START TIME: 8:29 AM INCISION CLOSE/PROCEDURE END TIME: 8:51 AM SURGEON(S)/PROCEDURALIST( S) AND SANITATION LABORER(S): Surgeon(s) and Role: * Mar Lilly MD - Proceduralist No Additional Staff PROCEDURE(S): Colonoscopy with snare polypectomy and biopsies ANESTHESIA: MAC FINDINGS: see dictated note ESTIMATED BLOOD LOSS: minimal SPECIMENS: ID Type Source Tests Collected by Time Destination A : Tissue ASCENDING COLON POLYP SURGICAL PATHOLOGY Mar Lilly MD 11/22/2022 8:40 AM B : Tissue HEPATIC FLEXURE POLYP SURGICAL PATHOLOGY Mar Lilly MD 11/22/2022 8:41 AM C : Tissue DESCENDING COLON POLYP SURGICAL PATHOLOGY Mar Lilly MD 11/22/2022 8:48 AM D : Tissue SIGMOID COLON POLYP SURGICAL PATHOLOGY Mar Lilly MD 11/22/2022 8:50 AM COMPLICATIONS: None PRE-OP/PRE-PROCEDURE DIAGNOSIS: #1 constipation #2 previous history of colon cancer and adenomatous colon polyps POST-OP/POST-PROCEDURE DIAGNOSIS: #1 small colon polyps #2 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 #4 small internal and prominent external hemorrhoids SIGNATURE: Mar Lilly MD PATIENT NAME: Percy Ware DATE: November 22, 2022 TIME: 8:57 AM PAGER/CONTACT #: [facility] HISTORY PHYSICALon HISTORY PHYSICAL HNO ID: [id number] Author: Mar Lilly MD Service: Gastroenterology Author Type: Physician Type: HANDP Filed: 11/22/2022 8:25 AM Note Text: UPDATED HISTORY AND PHYSICAL EXAMINATION PATIENT NAME: Percy Ware DATE of SERVICE: 11/22/2022 TIME of SERVICE: 8:25 AM PHYSICAL EXAM MUST BE COMPLETED ON ADMISSION The History and Physical (completed in the past 30 days) has been reviewed and the patient has been examined. The contents accurately reflect the patient's condition with the following additions or revisions since the HANDP was completed. Examination indicates no changes This HANDP can be found in the paper record. SIGNATURE: Mar Lilly MD DATE: November 22, 2022 TIME: 8:25 AM UPDATED HISTORY AND PHYSICAL EXAMINATION PATIENT NAME: Percy Ware DATE of SERVICE: 11/22/2022 TIME of SERVICE: 8:25 AM PHYSICAL EXAM MUST BE COMPLETED ON ADMISSION The History and Physical (completed in the past 30 days) has been reviewed and the patient has been examined. The contents accurately reflect the patient's condition with the following additions or revisions since the HANDP was completed. Examination indicates no changes This HANDP can be found in the paper record. SIGNATURE: Mar Lilly MD DATE: November 22, 2022 TIME: 8:25 AM [facility] OPERATIVE NOon 11-22-2022 OPERATIVE NO HNO ID: [id number] Author: Mar Lilly MD Service: Gastroenterology Author Type: Physician Type: Operative Report Filed: 11/23/2022 3:46 PM Note Text: [facility] - Operative Report PERCY WARE : 1950 AGE: 72. SEX: F PATIENT TYPE: O HOSP SVC: LOCATION: ATTENDING PHYSICIAN: CAITIE ROYAL [facility] NUMBER: [id number] DATE OF SURGERY/PROCEDURE: 11/22/2022 INCISION/PROCEDURE START TIME: The scope in time was 0829 hours. INCISION CLOSE/PROCEDURE END TIME: The scope out time was 0851 hours. PREOPERATIVE DIAGNOSIS: 1. Constipation. 2. Previous history of colon cancer and adenomatous colon polyps. POSTOPERATIVE DIAGNOSIS: 1. Small colon polyps. 2. Diverticular disease of colon. 3. Mild Melanosis coli. 4. Small internal and prominent external hemorrhoids. SURGEON: Mar Lilly M.D. SANITATION LABORER: Viri Ham. SURGERY/PROCEDURE: Colonoscopy with snare polypectomy and biopsies. ANESTHESIA: MAC. INDICATIONS: The patient is a 72-year-old female with previous history of colon cancer and adenomatous colon polyps. She now presents for a surveillance colonoscopy to rule out recurrent colon polyps and colonic neoplasm. Over the past several months, she has also experienced recurrent constipation. CONSENT: The procedure was explained to the patient and written informed consent was obtained from her prior to the procedure. DESCRIPTION OF PROCEDURE: The procedure was performed using monitored anesthesia care. She was positioned in the left lateral position. The Olympus PCF-H190L video colonoscope was advanced to the cecum under direct vision without difficulty. The position was confirmed by transillumination and by identification of cecal landmarks. The bowel preparation was good and visualization optimal. A 3 mm sessile polyp was seen in the ascending colon and was removed with the help of biopsy forceps. A 5 mm sessile polyp was seen at the hepatic flexure. This was transected using a cold snare and was recovered via the suction channel for histological assessment. A 3 mm sessile polyp was seen in the descending colon and was removed with the help of biopsy forceps. A diminutive polyp was seen in the sigmoid and was removed with the help of biopsy forceps. Few diverticula were seen in the left colon and several also identified in the transverse colon. The colonic mucosa mildly pigmented, consistent with mild Melanosis coli. No other mucosal abnormality was seen. In particular, no additional polyps or tumors were identified. Small internal and prominent external hemorrhoids were present. After inspection of the entire colon, the endoscope was gently retrieved. The patient tolerated the procedure well and was returned to the recovery area in good condition. IMPRESSION: 1. Small colon polyps. 2. Diverticular disease of colon. 3. Mild Melanosis coli. 4. Small internal and prominent external hemorrhoids. RECOMMENDATIONS: 1. Await histology. 2. High-fiber diet. Encouraged to drink 6-8 glasses of water daily. 3. Continue psyllium husk as before. 4. Hold aspirin for 7 days and meloxicam for 5 days. 5. Follow up in my office in 3 months or sooner should the need arise. Mar Lilly M.D. BKS:[id number] /[id number] [facility] SURGICAL PATHOLOGYon 023 CASE REPORT [facility] Comment on above: Order Comment: Neeraj giron Type: TISSUE SPECIMEN Ordering Facility: [facility] Address: [address] [place] [address] Result Comment: [facility] Pathology Report Case: [id number] Authorizing Provider: Mar Lilly MD Collected: 11/22/2022 08:40 AM Ordering Location: [facility] Received: 11/22/2022 10:58 AM Pathologist: Marvin Woods MD, PhD Specimens: A) - ASCENDING COLON POLYP B) - HEPATIC FLEXURE POLYP C) - DESCENDING COLON POLYP D) - SIGMOID COLON POLYP Performed By: #### S #### [facility] CLIA [id number] [address] [place], [place] [address]K [address] OF [facility] FINAL DIAGNOSIS [facility] Comment on above: Order Comment: Speci men Type: TISSUE SPECIMEN Ordering Facility: [facility] Address: [address] [place] [address] Result Comment: A. A scending colon, polyp, biopsy: - Tubular adenoma. B. Hepatic flexure, polyp, biopsy: -Tubular adenoma. C. Descending colon, polyp, biopsy: -Tubular adenoma. D. Sigmoid colon, polyp, biopsy: -Hyperplastic polyp. Performed By: #### S #### [facility] CLIA [id number] [address] [place] [address] OF [facility] FINAL PERFORMING LAB [facility] Comment on above: Order Comment: Speci men Type: TISSUE SPECIMEN Ordering Facility: [facility] Address: [address] [place] [address] Result Comment: Diag nostic interpretation performed at [facility], [address] [place] [address] CLIA# [id number] Office Technician: Josué Fox M.D. Performed By: #### S #### [facility] CLIA [id number] [address] [place] [address] GROSS DESCRIPTION [facility] Comment on above: Order Comment: Speci bree Type: TISSUE SPECIMEN Ordering Facility: [facility] Address: [address] [place] [address] Result Comment: A. A SCENDING COLON POLYP Received in formalin is one piece of thomas, soft tissue measuring 0.3 x 0.2 x 0.2 cm. Totally submitted in formalin in one cassette. B. HEPATIC FLEXURE POLYP Received in formalin are two pieces of thomas, soft tissue aggregating to 0.7 x 0.3 x 0.2 cm. Totally submitted in formalin in one cassette. C. DESCENDING COLON POLYP Received in formalin is one piece of thomas, soft tissue measuring 0.3 x 0.2 x 0.2 cm. Totally submitted in formalin in one cassette. D. SIGMOID COLON POLYP Received in formalin are two pieces of thomas, soft tissue aggregating to 0.5 x 0.2 x 0.2 cm. Totally submitted in formalin in one cassette. Gross examination performed at [facility], [address] [place], [place] [address], [place] [id number] 11/22/2022 3:20 PM Performed By: #### S #### [facility] CLIA [id number] [address] [facility] DESK [id number] [place] CAROTID ARTERIES KACI VAS LABon 06-07-2022 [facility] ECG COMPLETEon 05-29-2022 Atrial Rate 74 BPM [facility] Calculated [place] 23 degrees [facility] Calculated [place] 120 degrees [facility] Calculated T [place] 24 degrees [facility] P-R Interval 190 ms [facility] QRS Duration 106 ms [facility] QT Interval 424 ms [facility] QTC Calculation (Bazett) 470 ms [facility] Ventricular Rate 74 BPM [facility] History and Physical - Surgi geraldine Update < 30 dayson 12-11-2019 History and Physical - Surgical Update < 30 days History & Physical Reviewed: I have reviewed the History and Physical dated: 01-Dec-2019 History and Physical reviewed and relevant findings noted. Patient examined to review pertinent physical findings.: No significant changes Home Medications Reviewed: no changes noted Allergies Reviewed: no changes noted This patient has been seen and discussed with the attending physician responsible for performing the procedure: yes Signatures/Attestation/Ce rtification: Note Completion: Attending Provider Inpatient Certification StatementObservation patient/other outpatient visits Electronic Signatures: Frederick Mohamud) (Signed 11-Dec-2019 12:04) Authored: History & Physical Reviewed, Signatures/Attestation/Ce rtification Last Updated: 11-Dec-2019 12:04 by Frederick Mohamud) [facility] Preop Checkliston 12-11-2019 Preop Checklist Preop Checklist: Preop Checklist: Arrival [id number] Arrival Time11:45 Procedure TypeRt Phacoemulsification with toric intraocular lens implant Temperature C37 degrees C Temperature F98.7 degrees F Heart Rate73 beats per minute Respiratory Rate25 breath per minute Blood Pressure Avxmeggw328 mm/Hg Blood Pressure Fzstxushd25 mm/Hg NPO [id number] 23:30 ID Band Onyes Allergy Bandyes Consent Signedyes H&P Completeyes Anesthesia Assessment Completedyes EKG Performednot ordered Chest X-Ray Performednot ordered HCG Urine TestN/A Chlorhexadine Bath Givennot applicable Nasal Antiseptic Appliednot applicable Hair Washednot applicable Soap and water bath with hair shampoo the night before surgerynot applicable Hat placed on infant prior to transportnot applicable SCD's Appliednot applicable ANEL Hose Appliednot ordered Denturesnot applicable Prostheticsnot applicable Hearing Aidsnot applicable Valuables Securedleft in patient room Glasses / Contactsnot applicable Bowel Prepno Cardiovascular Assessment: Apicalregular Radial Pulsespalpable Pedal Pulsespalpable Extremitieswarm Respiratory Assessment: Respirationsunlabored Air Exchangeequal Breath Soundsclear Neurological Assessment: Level of Consciousnessalert Mobilitymoves all extremities Able to Express Selfyes Age Appropriateyes Emotional Statuscalm Preop Education: Surgical Site Infection Preventionyes Pain Scales and Managementyes Language / Communication: Language / CommunicationEnglish Electronic Signatures: Bela Schulz (RN) (Signed 11-Dec-2019 12:00) Authored: Preop Checklist Last Updated: 11-Dec-2019 12:00 by Bela Schulz (YANIRA) [facility] Patient Profile - Preop v2on 12-09-2019 Patient Profile - Preop v2 Profile: Initial Info: How to be AddressedKay(1) Spoken Language PreferredEnglish (1) Source of Informationpatient Are you currently using the Personal Electronic Health Record or [employer]yes (1) Instructions Givenappropriate clothing, bring responsible adult as the class c driver (procedure may be cancelled if no class c driver), center location, remove jewerly/piercings, time to arrive Prep Instructions Reviewedyes Instructed to Have No Fluids Aftermidnight Stated Reason for AdmissionRt phacoemulsification lens toric intraocular lens implant Primary Contact Name and NumberWarren (Patrick) Limitations on Visitors/Phone Callsnone Patient Belongingsremains with patient Patient Belongings Remaining with Patientclothing; jewelry; purse/wallet; jewelry on pt- 1 ring, watch, 1 pair earrings all other belongings with spouse Medications Brought to Hospitalno General Health: Weight in kg126 kilogram(s) Weight in djs190.7 pound(s) Weight Methodactual (measured) Scale Typestanding Height in cm157.4 centimeter(s) Height in feet5 feet Height in inches2 inch(es) Height Methodstated BMI (kg/m2)50.858 square meter Patient or Family Member Reaction to Anesthesiano previous reaction; no previous family member reaction Equipment Currently Used at Homebipap Blood Avoidance/Restrictionsnon e Health Mgmt: Symptoms/Conditions Managed at Homenone Barriers to Managing Healthnone Relationship/Environ: Resource/Environmental Concernsnone Services Anticipated at Transitionnone Lives Withalone Living Arrangementshouse Anticipated Transition [place] Substance: Current or Former Substance Use never: Cigarette/Tobacco(1), e-Cigarette/Vaping(1), Alcohol(1), Street Drugs Risk Screens: Advance Directive/DNRno Advance Directive Information Givenpatient/family declined During the past month, have you often been bothered by feeling down, depressed or hopelessno During the past month, have you often had little interest or pleasure in doing thingsno Have you had any thoughts of harming yourselfno Have you had any thoughts of harming anyone elseno Are you or have you been threatened or abused physically,emotionally or sexually abused by anyoneno Do you feel UNSAFE going back to the place you are livingno Patient is Able to be Assessed for Learningyes Factors Influencing Readiness to Learnmotivation to learn Factors that Impact Ability to Learnnone Devices/Methods Used to Communicatenone Learning Preferencesverbal instruction Cultural Considerationsnone Developmental Considerationsnone Evangelical Considerationsnone Other learner availableno Falls RiskPatient location auto qualifies him/her for HIGH RISK. Are there any cultural, spiritual, gnosticist practices/values/needs that are important for us to knowno Do you want a visit/item from Past[facility] Ca[facility]o Would you like your Wool Grader/Javascript Web Developer notifiedno Pain Scalenumerical 0-10 Pain Scale Educationteaching provided Current Pain Level6 = Moderate Acceptable Pain Level4 = Moderate Expression of Pain (nonverbal)none Lifestyle Changes/Adaptations in Response to Painno change Barriers to Reporting Painnone Pain Commentfell on Sat and her tailbone hurts when sitting up on it. Pain is better after laying down and repositioned in bed Chronic Painno Information Review: Allergies, Home Meds and Significant Events have been Reviewed and Verified with Patient/Familyyes Allergy, Intolerance, Adverse Event: Allergies: contrast (specific type unknown): Contrast, Hives/Urticaria, Active Red Dye: Food, Swelling/Edema, Active Naldecon DX Liquigel: Drug, Unknown, Active Methenamine Mandelate: Drug, Unknown, Active losartan: Drug, Unknown, Active sulfamethoxazole-trimetho prim: Drug, Unknown, Active amoxicillin-clavulanate: Drug, Unknown, Active iodine: Drug, Unknown, Active Lasix: Drug, Unknown, Active Cipro: Drug, Unknown, Active moxifloxacin: Drug, Unknown, Active clindamycin: Drug, Unknown, Active erythromycin: Drug, Unknown, Active hydrocodone: Drug, Unknown, Active Mandelamine: Drug, Unknown, Active metoprolol: Drug, Unknown, Active minocycline: Drug, Unknown, Active neomycin: Drug, Unknown, Active nitrofurantoin: Drug, Unknown, Active pseudoephedrine: Drug, Unknown, Active penicillins: Drug Category, Unknown, Active sulfa drugs: Drug Category, Unknown, Active Latex: Latex, Unknown, Active Tape - Adhesive, Bandaids, Paper: Environment, Unknown, Active Shell Fish: Food, Unknown, Active [place]: Food, Unknown, Active Problem List: Surg History: History of cataract extraction: Catalog Name: Cataract extraction status, unspecified eye Electronic Signatures: Bela Schulz (YANIRA) (Signed 11-Dec-2019 11:57) Authored: Profile, Additional Information Kenia Ham) (Signed 09-Dec-2019 12:09) Authored: Profile, Additional Information Last Updated: 11-Dec-2019 11:57 by Bela Schulz (YANIRA) References: 1. Data Referenced From Patient Profile - Preop v2 05-Aug-2019 09:09 Normal [facility] BD DXA - AXIAL SKELETONon BD DXA - AXIAL SKELETON * * *Final Report* * * DATE OF EXAM: Aug 26 2019 10:51AM LDX 0804 - BD DXA - AXIAL SKELETON / PROCEDURE REASON: Asymptomatic postmenopausal state * * * * Physician Interpretation * * * * Exam: Bone Mineral Densitometry (DEXA). Date: 08/26/2019 10:51 AM Comparison: None. Baseline Study. Indication: Post menopause. Technique: DXA Yobble-Tripology v,11.4 examination was performed on the lumbar spine and hip. Findings: 1. L1-L4 BMD is 1.177 g/cm2 which is 100% of peak bone mass compared to young normals which is 0 standard deviations relative to the mean of young normals (T-score). According to the World Health Organization criteria, this would be classified as normal. 2. Left hip BMD is 0.955 g/cm2 which is 95% of peak bone mass compared to young normals which is -0.4 standard deviations relative to the mean of young normals (T-score). According to the World Health Organization criteria, this would be classified as normal. 3. Left femoral neck BMD is 0.904 g/cm2 which is 87% of peak bone mass compared to young normals which is -1.0 standard deviations relative to the mean of young normals (T-score). According to the World Health Organization criteria, this would be classified as normal. IMPRESSION: Normal bone density. GENERAL RECOMMENDATIONS FOR PREVENTION OF BONE LOSS: 1. 1200 mg - 1500 mg calcium per day if no history of renal calculi for adults 50 years and over. 2. 800 - 1000 International Units of vitamin D3 per day if no history of renal calculi for adults 50 years and over. 3. Weight bearing exercise 4. Advise against smoking and recommend smoking cessation if appropriate. 5. Avoid excessive use of caffeine, soft drinks, and alcoholic beverages. The National Osteoporosis Foundation recommends that treatment be considered for all patients with T-scores of -2.5 or lower (-1 or lower if patient at high risk for accelerated bone loss). Survival Specialist: MATT Transcribe Date/Time: Aug 27 2019 9:16A Dictated by : KOTA ZACARIAS MD This examination was interpreted and the report reviewed and electronically signed by: KOTA ZACARIAS MD on Aug 27 2019 9:17AM EST Normal [facility] History and Physical - Surgi geraldine Update < 30 dayson 08-06-2019 History and Physical - Surgical Update < 30 days History & Physical Reviewed: I have reviewed the History and Physical dated: 28-Jul-2019 History and Physical reviewed and relevant findings noted. Patient examined to review pertinent physical findings.: No significant changes Home Medications Reviewed: no changes noted Allergies Reviewed: no changes noted This patient has been seen and discussed with the attending physician responsible for performing the procedure: yes Signatures/Attestation/Ce rtification: Note Completion: Attending Provider Inpatient Certification StatementObservation patient/other outpatient visits Electronic Signatures: Frederick Mohamud) (Signed 06-Aug-2019 07:11) Authored: History & Physical Reviewed, Signatures/Attestation/Ce rtification Last Updated: 06-Aug-2019 07:11 by Frederick Mohamud) [facility] Preop Checkliston 08-06-2019 Preop Checklist Preop Checklist: Preop Checklist: Arrival [id number] Arrival Time09:18 Procedure TypeLt cataract NPO [id number] 23:00 ID Band Onyes Allergy Bandyes Consent Signedyes H&P Completeyes Anesthesia Assessment Completedyes EKG Performednot ordered Chest X-Ray Performednot ordered HCG Urine TestN/A Chlorhexadine Bath Givennot applicable Nasal Antiseptic Appliednot applicable Hair Washednot applicable Soap and water bath with hair shampoo the night before surgerynot applicable SCD's Appliednot applicable ANEL Hose Appliednot ordered Denturesnot applicable Prostheticsnot applicable Hearing Aidsnot applicable Valuables Securedsent with family Glasses / Contactssent with family Bowel Prepno Cardiovascular Assessment: Apicalregular Respiratory Assessment: Respirationsunlabored regular Air Exchangeequal, good Breath Soundsclear Neurological Assessment: Level of Consciousnessalert, oriented Mobilitymoves all extremities Able to Express Selfyes Age Appropriateyes Emotional Statuscalm Preop Education: Surgical Site Infection Preventionyes Pain Scales and Managementyes Language / Communication: Language / CommunicationEnglish Electronic Signatures: Naomie Shin (YANIRA) (Signed 06-Aug-2019 10:09) Authored: Preop Checklist Last Updated: 06-Aug-2019 10:09 by Naomie Shin (YANIRA) [facility] Patient Profile - Preop v2on 08-05-2019 Patient Profile - Preop v2 Profile: Initial Info: How to be AddressedKay Spoken Language PreferredEnglish Source of Informationpatient Are you currently using the Personal Electronic Health Record or RemCare[employer]yes Instructions Givenappropriate clothing, bring responsible adult as the class c driver (procedure may be cancelled if no class c driver), center location, remove jewerly/piercings Prep Instructions Reviewedyes Instructed to Have No Fluids Aftermidnight Stated Reason for Admission cataract removed from left eye Primary Contact Name and NumberWarren (Patrick) Limitations on Visitors/Phone Callsnone Patient Belongingsremains with patient Patient Belongings Remaining with Patientclothing; jewelry; purse/wallet; jewelry on pt- 1 ring, watch, 1 pair earrings all other belongings with spouse Medications Brought to Hospitalno General Health: Weight in kg115.8 kilogram(s) Weight in uqu112.2 pound(s) Weight Methodstated Height in cm157.4 centimeter(s) Height in feet5 feet Height in inches2 inch(es) Height Methodstated BMI (kg/m2)46.741 square meter Patient or Family Member Reaction to Anesthesiano previous reaction; no previous family member reaction Equipment Currently Used at Homebipap Blood Avoidance/Restrictionsnon e Relationship/Environ: Resource/Environmental Concernsnone Services Anticipated at Transitionnone Lives Withalone Living Arrangementshouse [facility] Substance: Current or Former Substance Use never: Cigarette/Tobacco, e-Cigarette/Vaping, Alcohol, Street Drugs Risk Screens: Advance Directive/DNRno Advance Directive Information Givenpatient/family declined During the past month, have you often been bothered by feeling down, depressed or hopelessno During the past month, have you often had little interest or pleasure in doing thingsno Have you had any thoughts of harming yourselfno Have you had any thoughts of harming anyone elseno Are you or have you been threatened or abused physically,emotionally or sexually abused by anyoneno Do you feel UNSAFE going back to the place you are livingno Patient is Able to be Assessed for Learningyes Factors Influencing Readiness to Learnmotivation to learn Factors that Impact Ability to Learnnone Devices/Methods Used to Communicatenone Learning Preferencesverbal instruction Cultural Considerationsnone Developmental Considerationsnone Evangelical Considerationsnone Other learner availableno Falls RiskPatient location auto qualifies him/her for HIGH RISK. Are there any cultural, spiritual, gnosticist practices/values/needs that are important for us to knowno Do you want a visit/item from [facility] Would you like your Wool Grader/Javascript Web Developer notifiedno Pain Scalenumerical 0-10 Pain Scale Educationteaching provided Current Pain Level6 = Moderate Acceptable Pain Level4 = Moderate Expression of Pain (nonverbal)none Lifestyle Changes/Adaptations in Response to Painno change Barriers to Reporting Painnone Pain Commentfell on Sat and her tailbone hurts when sitting up on it. Pain is better after laying down and repositioned in bed Chronic Painno Information Review: Allergies, Home Meds and Significant Events have been Reviewed and Verified with Patient/Familyyes Allergy, Intolerance, Adverse Event: Allergies: Cipro: Drug, Unknown, Active moxifloxacin: Drug, Unknown, Active clindamycin: Drug, Unknown, Active erythromycin: Drug, Unknown, Active hydrocodone: Drug, Unknown, Active Mandelamine: Drug, Unknown, Active metoprolol: Drug, Unknown, Active minocycline: Drug, Unknown, Active neomycin: Drug, Unknown, Active nitrofurantoin: Drug, Unknown, Active pseudoephedrine: Drug, Unknown, Active iodine: Drug, Unknown, Active Lasix: Drug, Unknown, Active losartan: Drug, Unknown, Active penicillins: Drug Category, Unknown, Active sulfa drugs: Drug Category, Unknown, Active Latex: Latex, Unknown, Active Tape - Adhesive, Bandaids, Paper: Environment, Unknown, Active Shell Fish: Food, Unknown, Active [place]: Food, Unknown, Active Problem List: Medical History: Sleep apnea treated with nocturnal BiPAP: Catalog Name: Sleep apnea, unspecified Hypertension: Catalog Name: Essential (primary) hypertension Colon cancer: Catalog Name: Malignant neoplasm of colon, unspecified, Description: with mets to lung and liver Cataract: Catalog Name: Unspecified cataract Surg History: History of colectomy: Catalog Name: Acquired absence of other specified parts of digestive tract H/O: hysterectomy: Catalog Name: Acquired absence of both cervix and uterus Electronic Signatures: Naomie Shin (RN) (Signed 06-Aug-2019 09:41) Authored: Profile, Additional Information Kenia Ham (RN) (Signed 05-Aug-2019 09:13) Authored: Profile, Additional Information Last Updated: 06-Aug-2019 09:41 by Naomie Shin (RN) [facility] Clinical Intervention - Angelique guzman 08-04-2019 Clinical Intervention - Pharmacy Pharmacist's Clinical Intervention: Pharmacist intervention: Contacted physician, regarding allergies to pseudoephedrine, iodine, and moxifloxacin- Dr Dubose alerted and wants meds ordered Electronic Signatures: Marc Palma ([facility]) (Signed 04-Aug-2019 15:13) Authored: Pharmacist's Clinical Intervention Last Updated: 04-Aug-2019 15:13 by Marc Palma ([facility]) [facility] Metanephrines, Ur 24 hron Metanephrines, Ur 24 hr SEE BELOW Normal [facility] Comment on above: Result Comment: Carrie nephrine Ur 24Hr REPORTED 06/03/2019 15:00 Metanephrines,Urine 80 ug/24 hr 52-341 PLDEF Normetanephrines,Ur 240 ug/24 hr 88-444 PLDEF Total Metanephrines 320 ug/24 hr 140-785 PLDEF This test was developed and its performance characteristics determined by [facility]'s Kev Aaron [facility] Pathology and Laboratory Medicine [place] ([facility]). It has not been cleared or approved by the FDA. [facility] is regulated under CLIA as qualified to perform high complexity testing. This test is used for clinical purposes. It should not be regarded as investigational or for research. Performed By: #### M ETUX #### [place] [address] Lipid Profileon 05-29-2019 Cholesterol [Mass/Vol] 153 mg/dL Normal 0-[address] [facility] Comment on above: Performed By: #### L LIPD #### [place] [address] Cholesterol in HDL [Mass/Vol] 58 mg/dL Normal >[address] [facility] Comment on above: Performed By: #### L LIPD #### [place] [address] Cholesterol in LDL [Mass/Vol] 80 mg/dL Normal 0-[address] [facility] Comment on above: Performed By: #### L LIPD #### [place] [address] Cholesterol.total /Cholesterol in HDL [Mass ratio] 2.6 {ratio} Normal 1.8-5.[address] [facility] Comment on above: Performed By: #### L LIPD #### [place] [address] Triglyceride Blood 77 mg/dL Normal 0-[address] [facility] Comment on above: Performed By: #### L LIPD #### [place] [address] Risk Factor See Below Normal [facility] Comment on above: Result Comment: Card iac Risk Factor The CHD risk factor is based on the total Chol/HDL ratio. Other factors affect CHD risk such as hypertension, smoking, diabetes, severe obesity and premature CHD. Cardiac Risk Total Chol/HDL ratio Men Women 1/2 avg risk 3.4-4.9 3.3-6.3 Avg risk 5.0-9.5 6.4-7.0 2x avg risk 9.6-23.3 7.1-10.9 3x avg risk >23.4 >11.0 Performed By: #### L LIPD #### [facility] [address] [place] [address] Metanephrines, Ur 24 hron Collection Period 24 Normal [facility] Comment on above: Performed By: #### M ETUX #### [facility] [address] [place], [place] [address] Volume [address] [facility] Comment on above: Performed By: #### M ETUX #### [facility] [address] [place] [address] OCT MACULA CIRRUS OU (BOTH E YES) [facility] Vital Signs Date Time Vital Sign Value Performing Clinician Agapito mercado 02-08-2024 14: Body height 160 cm Kristin Mariee MD Work Phone: [facility] 02-08-2024 14:09040 Body mass index (BMI) [Ratio] 52.79 kg/m2 Kristin Mariee MD Work Phone: [facility] 02-08-2024 14: Body weight 135.17 kg Kristin Mariee MD Work Phone: [facility] 02-08-2024 [id number]:09040 Diastolic blood pressure 82 mm[Hg] Kristin Mariee MD Work Phone: [facility] 02-08-2024 14:09-0400 Heart rate 100 /min Kristin Mariee MD Work Phone: [facility] 02-08-2024 14:09-0400 Respiratory rate 20 /min Kristin Mariee MD Work Phone: [facility] 02-08-2024 14:09-0400 Systolic blood pressure 136 mm[Hg] Kristin Mariee MD Work Phone: [facility] 05-29-2022 13:39-0400 Body height 157.5 cm Kristin Mariee MD Work Phone: [facility] 05-29-2022 13:39-0400 Body weight 148.33 kg Kristin Mariee MD Work Phone: [facility] 05-29-2022 13:39-0400 Diastolic blood pressure 84 mm[Hg] Kristin Mariee MD Work Phone: [facility] 05-29-2022 13:39-0400 Heart rate 74 /min Kristin Mariee MD Work Phone: [facility] 05-29-2022 13:39-0400 Systolic blood pressure 132 mm[Hg] Kristin Mariee MD Work Phone: [facility] 01-10-2022 10:38-0400 Body height 157.7 cm Fiorella Puente MD Work Phone: [facility] 01-10-2022 10:38-0400 Body temperature 98.71 [degF] Fiorella Puente MD Work Phone: [facility] 01-10-2022 10:38-0400 Body weight 153.32 kg Fiorella Puente MD Work Phone: [facility] 01-10-2022 10:38-0400 Diastolic blood pressure 78 mm[Hg] Fiorella Puente MD Work Phone: [facility] 01-10-2022 10:38-0400 Heart rate 79 /min Fiorella Puente MD Work Phone: [facility] 01-10-2022 10:38-0400 Respiratory rate 18 /min Fiorella Puente MD Work Phone: [facility] 01-10-2022 10:38-0400 SaO2% (BldA) [Mass fraction] 96 % Fiorella Puente MD Work Phone: [facility] 01-10-2022 10:38-0400 Systolic blood pressure 122 mm[Hg] Fiorella Puente MD Work Phone: [facility] Encounters Encounter Date Encounter Type Care Provider Facility Start: 03-11-2024 Refill Stacy Fletcher [employer] SALESPERSON.INTERNATIONAL BANK MANAGER Work Phone: Cardiology Comment on above: Refill Request Start: 02-08-2024 End: 02-08-2024 ambulatory KRISTIN MARIEE Facility:[facility] Start: 02-08-2024 End: 02-08-2024 Patient encounter procedure Kristin Mariee MD Work Phone: Cardiology Comment on above: Essential hypertensi on (Primary Dx); Obesity, Class III, BMI 40-49.9 (morbid obesity) (HCC); Obstructive sleep apnea syndrome; Lymphedema praecox; Morbid obesity due to excess calories (HCC) Start: 12-14-2023 Refill Stacy Fletcher APRN.INTERNATIONAL BANK MANAGER Work Phone: Cardiology Comment on above: Refill Request Start: 12-09-2023 End: 12-09-2023 Emergency department patient visit ALIREZA SHAY Facility:[facility] Start: 11-29-2023 Telephone encounter Kristin Mariee MD Work Phone: Cardiology Comment on above: reaction to medicati on Start: 11-08-2023 Telephone encounter Kristin Mariee MD Work Phone: Cardiology Comment on above: Question (See note) Start: 08-24-2023 ambulatory Papo Alonso [facility] Work Phone: Pharm [facility] Comment on above: Allied Health Visit (Statin Use Review ) Start: 07-20-[address] [facility] Comment on above: Population Health Na vigation Outreach ([place] Attributed Member- PCP Attribution Update- Followed Dr Puente to Ele) Start: 06-21-2023 ambulatory Fiorella viveros MD Work Phone: Pharm [facility] Comment on above: Allied Health Visit (Medication Adherence Outreach ) Start: 02-20-2023 Patient Outreach Aud[facility] Comment on above: Erroneous encounter- disregard Start: 12-22-2022 Refill Kristin Mariee MD Work Phone: Cardiology Comment on above: Refill Request Start: 12-01-2022 ambulatory Jose Armando To [facility] Work Phone: Pharm [facility] Comment on above: medication adherence outreach Start: 11-22-[address] [facility] Facility: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); Dry eye syndrome of both eyes; Pseudophakia of both eyes Start: 09-22-2022 Refill Kristin Mariee MD Work Phone: Cardiology Comment on above: Refill Request Start: 07-06-2022 Refill Kristin Mariee MD Work Phone: Cardiology Comment on above: Refill Request Start: 06-27-2022 ambulatory [facility]man[facility] Comment on above: Population Health Na vigation Outreach ([place] Care Gaps) Start: 06-16-2022 Refill Kristin Mariee MD Work Phone: Cardiology Comment on above: Refill Request Start: 06-13-2022 Refill Kristin Mariee MD Work Phone: Cardiology Comment on above: Refill Request Start: 06-07-2022 End: 06-07-2022 Patient encounter procedure Ultrasound [place] [facility] Work Phone: Vascular Surgery Comment on above: Carotid bruit, unspe cified laterality Start: 05-29-2022 End: 05-29-2022 Patient encounter procedure Kristin Mariee MD Work Phone: Cardiology Comment on above: Essential hypertensi on (Primary Dx); Sleep apnea, unspecified type; Lymphedema praecox; Obesity, Class III, BMI >= 40; Carotid bruit, unspecified laterality; Status post cataract extraction and insertion of intraocular lens of right eye Start: 05-19-2022 End: 05-19-2022 ambulatory Viri Lemon PT [facility] Comment on above: Lymphedema praecox ( Primary Dx) Start: 05-15-2022 End: 05-15-2022 ambulatory Viri Lemon PT [facility] Comment on above: Lymphedema praecox ( Primary Dx) Start: 05-12-2022 End: 05-12-2022 ambulatory Viri Lemon PT [facility] Comment on above: Lymphedema praecox ( Primary Dx) Start: 05-08-2022 End: 05-08-2022 ambulatory Viri Lemon PT [facility] Comment on above: Lymphedema praecox ( Primary Dx) Start: 05-05-2022 End: 05-05-2022 ambulatory Viri Lemon PT [facility] Comment on above: Lymphedema praecox ( Primary Dx) Start: 05-01-2022 End: 05-01-2022 ambulatory Viri Lemon PT [facility] Comment on above: Lymphedema praecox ( Primary Dx) Start: 04-19-2022 End: 04-19-2022 ambulatory Viri Lemon PT [facility] Comment on above: Lymphedema praecox ( Primary Dx) Start: 04-14-2022 End: 04-14-2022 ambulatory Viri Lemon PT [place] [facility] Therapy Comment on above: Lymphedema praecox ( Primary Dx) Start: 04-12-2022 End: 04-12-2022 ambulatory Viri Lemon PT [place] [facility] Physical Therapy Comment on above: Lymphedema praecox ( Primary Dx) Start: 04-07-2022 End: 04-07-2022 ambulatory Viri Lemon PT [facility] Comment on above: Lymphedema praecox ( Primary Dx) Start: 03-31-2022 End: 03-31-2022 ambulatory Viri Lemon PT [facility] Comment on above: Lymphedema praecox ( Primary Dx) Start: 03-27-2022 End: 03-27-2022 ambulatory Viri Lemon PT [facility] Comment on above: Lymphedema praecox ( Primary Dx) Start: 03-24-2022 End: 03-24-2022 ambulatory Viri Lemon PT [facility] Comment on above: Lymphedema praecox ( Primary Dx) Start: 03-20-2022 End: 03-20-2022 ambulatory Viri Lemon PT [facility] Comment on above: Lymphedema praecox ( Primary Dx) Start: 02-28-2022 ambulatory Yesi Hernandez MA [facility] Comment on above: Population Health Na vigation Outreach ([place] Attribution ) Start: 02-20-2022 End: 02-20-2022 ambulatory Viri Lemon PT Work Phone: [facility] Comment on above: Lymphedema praecox ( Primary Dx) Start: 02-17-2022 End: 02-17-2022 ambulatory Viri Lemon PT Work Phone: [facility] Comment on above: Lymphedema praecox ( Primary Dx) Start: 02-13-2022 End: 02-13-2022 ambulatory Viri Lemon PT Work Phone: [facility] Comment on above: Lymphedema praecox ( Primary Dx); Lower extremity edema Start: 02-10-2022 End: 02-10-2022 ambulatory Viri Lemon PT Work Phone: [facility] Comment on above: Lymphedema praecox ( Primary Dx) Start: 02-06-2022 End: 02-06-2022 ambulatory Viri Lemon PT Work Phone: [facility] Comment on above: Lymphedema praecox ( Primary Dx) Start: 02-03-2022 End: 02-03-2022 ambulatory Viri Lemon PT Work Phone: [facility] Comment on above: Lower extremity tammy a (Primary Dx) Start: 01-27-2022 End: 01-27-2022 ambulatory Viri Lemon PT Work Phone: [facility] Comment on above: Lower extremity tammy a (Primary Dx) Start: 01-23-2022 End: 01-23-2022 ambulatory Viri Lemon PT Work Phone: [facility] Comment on above: Lower extremity tammy a (Primary Dx) Start: 01-18-2022 End: 01-18-2022 ambulatory Viri Lemon PT Work Phone: [facility] Comment on above: Lower extremity tammy a (Primary Dx) Start: 01-10-2022 End: 01-10-2022 Patient encounter procedure Fiorella Puente MD Work Phone: [facility] Comment on above: Essential hypertensi on (Primary Dx); ARTURO treated with BiPAP; Shortness of breath; Lower extremity edema; History of colon cancer, stage IV; Advance directive in chart Start: 12-30-2021 ambulatory Snow Navarro RN Project Construction Assistant Manager Comment on above: Primary Care Coordin ator- Other (HCPOA/Living Will) Procedures Date Procedure Procedure Detail Performing Clinician Start: 02-08-2024 Ecg routine ecg w/le ast 12 lds i&r only Kristin Mariee MD Work Phone: Start: 11-07-2022 Computerized ophthal wilbert imaging retina Santos Hugo MD Work Phone: Start: 08-25-2022 Lipid 1996 panel - S lizzy or Plasma Fiorella Puente MD Work Phone: Start: 06-07-2022 Duplex scan extracra nial art compl bi study Kristin Mariee MD Work Phone: Start: 05-29-2022 Ecg routine ecg w/le ast 12 lds w/i&r [facility] Provider Start: 05-18-2021 Adult depression scr eening assessment Snow Navarro RN Start: 05-14-2018 Mammography Snow Navarro RN Start: 05-25-2009 Colonoscopy Snow aNvarro RN Plan of Treatment Date Care Activity Detail Author Start: 05-08-2030 Urine microalbumin profile [facility] Start: 08-25-2027 Lipid 1996 panel - S lizzy or Plasma Lipid Screening [facility] Start: 08-25-2027 Lipid panel [facility] Start: 08-25-2027 LIPID SCREEN LIPID SCREEN [facility] Start: 08-25-2025 DIABETES SCREEN DIABETES SCREEN [facility] Start: 08-25-2025 Diabetes Screening Diabetes Screenin g [facility] Start: 12-05-2024 DIABETES SCREEN DIABETES SCREEN [facility] Start: 06-08-2024 Influenza vaccination Influenz a Vaccine (Season Ended) [facility] Start: 05-29-2024 LIPID SCREEN LIPID SCREEN [facility] Start: 10-08-2023 Advance Directive Discussion Advance Directive Discussion [facility] Start: 10-08-2023 Behavioral Health Screening Behavioral Health Screening [facility] Start: 10-08-2023 [facility] Start: 06-08-2023 Covid-19 Vaccine ( season) Covid-19 Vaccine () [facility] Start: 06-08-2023 Influenza vaccination [facility] Start: 01-10-2023 ANNUAL PCP TEAM FRAME RUNNER MAXI DISEASE VISIT ANNUAL PCP TEAM CHRONIC DISEASE VISIT [facility] Start: 01-10-2023 BP CONTROLLED (<130/80) BP CONTROLLE D (<130/80) [facility] Start: 12-13-2022 ANNUAL PCP TEAM FRAME RUNNER MAXI DISEASE VISIT ANNUAL PCP TEAM CHRONIC DISEASE VISIT [facility] Start: 10-08-2022 ADVANCE DIRECTIVE DISCUSSION ADVANCE DIRECTIVE DISCUSSION [facility] Start: 10-08-2022 DEPRESSION ASSESSMENT DEPRESSION ASS ESSMENT [facility] Start: 06-08-2022 Influenza vaccination [facility] Start: 05-18-2022 Adult depression screening assessment DEPRESSION SCREENING [facility] Start: 05-18-2022 BP CONTROLLED (<130/80) BP CONTROLLE D (<130/80) [facility] Start: 05-18-2022 COLORECTAL CANCER SCREENING COLORECTAL CANCER SCREENING [facility] Comment on above: Postponed from 04/17 (Declined at this time) Start: 05-18-2022 COVID-19 VACCINE (#1) COVID-19 VACCI NE (#1) [facility] Comment on above: Postponed from 04/17 (Declined at this time) Postponed from 10/18 (Declined at this time) Start: 05-18-2022 COVID-19 VACCINE (1) COVID-19 VACCIN E (1) [facility] Comment on above: Postponed from 04/17 (Declined at this time) Start: 05-18-2022 Mammography MAMMOGRAM [facility] Comment on above: Postponed from 05/14 (Declined at this time) Start: 05-18-2022 SHINGRIX VACCINE (1 of 2) SHINGRIX VACCINE (1 of 2) [facility] Comment on above: Postponed from 04/17 (Declined at this time) Start: 04-06-2022 Influenza vaccination INFLUENZA (#1) [facility] Comment on above: Postponed from 06/08 (Declined at this time) Start: 10-08-2021 ADVANCE DIRECTIVE DISCUSSION ADVANCE DIRECTIVE DISCUSSION [facility] Start: 10-08-2021 DEPRESSION ASSESSMENT DEPRESSION ASS ESSMENT [facility] Start: 05-20-2019 FECAL OCCULT BLOOD FECAL OCCULT BLOO D [facility] Start: 05-20-2019 Screening for malign ant neoplasm of colon Fecal Occult Blood [facility] Start: 05-14-2019 Mammography MAMMOGRAM [facility] Start: 05-21-2018 COLORECTAL CANCER SCREENING COLORECTAL CANCER SCREENING [facility] Start: 05-21-2018 Screening for malign ant neoplasm of colon Colorectal Cancer Screening [facility] Start: 05-25-2014 Colonoscopy COLONOSCOPY [facility] Start: 05-25-2014 Screening for malign ant neoplasm of colon Colonoscopy [facility] Start: 2013 Pneumococcal Vaccine : 65+ (1 - PCV) Pneumococcal Vaccine: 65+ (1 - PCV) [facility] Start: 2013 Pneumococcal Vaccine : 65+ (1 of 1 - PCV) Pneumococcal Vaccine: 65+ (1 of 1 - PCV) [facility] Start: 2013 PNEUMOCOCCAL: 65+ (1 - PCV) PNEUMOCOCCAL: 65+ (1 - PCV) [facility] Start: 2008 RSV Vaccine (1 - 1-d ose 60+ series) RSV Vaccine (1 - 1-dose 60+ series) [facility] Start: 1998 SHINGRIX VACCINE (1 of 2) SHINGRIX VACCINE (1 of 2) [facility] Start: 1993 COLOGUARD (FIT-DNA) COLOGUARD (FIT-D NA) [facility] Start: [address] COLONOGRAPHY [facility] Start: 1993 Screening for malign ant neoplasm of colon [facility] Start: 1993 SIGMOIDOSCOPY SIGMOIDOSCOPY [facility] Start: 1948 COVID-19 VACCINE (#1) COVID-19 VACCI NE (#1) [facility] ECG COMPLETE ECG COMPLETE ECG 05/29/2022 1:53 PM EDT [facility] End: 05-29-2023 US CAROTID ARTERIES [facility] US CAROTID ARTERIES [facility] Vascular Lab Routine Carotid bruit, unspecified laterality 1 Occurrences starting 05/29/2022 until 05/29/2023 [facility] Work Phone: Comment on above: 1 Occurrences starti ng 05/29/2022 until 05/29/2023 [facility] Immunizations Immunization Date Immunization Notes Care Provider Dixon lyons 05-08-2020 tetanus toxoid, redu [place] diphtheria toxoid, and acellular pertussis vaccine, adsorbed Snow Navarro RN [facility] Payers Date Payer Category Payer Unknown [facility] AND BLUE SHIELD [employer] O [id number] 2015-Present [phone] [address] [place] [address] [facility] [id number] 2015 Unknown [id number] 2015 Unknown [id number] Social History Date Type Detail Facility Start: 05-19-2013 End: 02-08-2024 Tobacco smoking status NHIS Never smoked tobacco [facility] Start: 05-19-2013 End: 02-08-2024 Tobacco use and exposure Smokeless tobacco non-user [facility] Start: 12-13-2021 End: 02-08-2024 Alcohol intake Current non-drinker of alcohol (finding) [facility] Start: 1950 Sex Assigned At Female [facility] Start: 11-13-2021 End: 08-25-2022 Exposure to SARS-CoV-2 (event) Not sure [facility] Start: 11-07-2022 End: 12-10-2023 History of Social function [facility] Start: 11-07-2022 End: 12-10-2023 Tobacco use panel [facility] Adult Depression Screening Assessment 0 [facility] Start: 05-13-2020 Gender identity Identifies as female gender (finding) [facility] Start: 05-13-2020 Sexual orientation Heterosexual (fin navin) [facility] Clinical Notes 07-28-2019 to 03-11-2024 Telephone Encounter - Cely Reaves MA - 03/11/2024 7:22 AM EDTTelephone Encounter - Cely Reaves MA - 03/11/2024 7:22 AM EDTPatient Kristin Vivar MD - 02/08/2024 2:05 PM EDT Note Date & Type Note Facility 03-11-2024 Telephone encounter Note Pharmacy electronically requests the following refill(s) Requested Prescriptions Pending Prescriptions Disp Refills atenolol (TENORMIN) 25 mg tablet [Pharmacy Med Name: Atenolol 25 MG Oral Tablet] 90 tablet 0 Sig: Take 1 tablet by mouth once daily potassium chloride (K-TAB) 10 mEq tablet [Pharmacy Med Name: Potassium Chloride ER 10 MEQ Oral Tablet Extended Release] 90 tablet 0 Sig: Take 1 tablet by mouth once daily [place] 02/08/2024 Nov Not scheduled Labs 08/2022 Cely Reaves MA [facility] 03-11-2024 Miscellaneous Notes Pharmacy electronically requests the following refill(s) Requested Prescriptions Pending Prescriptions Disp Refills atenolol (TENORMIN) 25 mg tablet [Pharmacy Med Name: Atenolol 25 MG Oral Tablet] 90 tablet 0 Sig: Take 1 tablet by mouth once daily potassium chloride (K-TAB) 10 mEq tablet [Pharmacy Med Name: Potassium Chloride ER 10 MEQ Oral Tablet Extended Release] 90 tablet 0 Sig: Take 1 tablet by mouth once daily [place] 02/08/2024 Nov Not scheduled Labs 08/2022 Cely Reaves MA documented in this encounter [facility] 02-08-2024 Note HNO ID: [id number] Author: KRISTIN MARIEE MD Service: ? Author Type: Physician Type: Progress Notes Filed: 02/08/2024 14:39 Note Text: [facility] [place] Susanna Pascal Department of Cardiovascular Medicine SECTION OF REGIONAL CARDIOLOGY [facility] 02/08/2024 OUTPATIENT VISIT TYPE Established F/Up regarding Hypertension and ARTURO, medication noncompliance with multiple allergies. HISTORY OF PRESENT ILLNESS: Ms. 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 used homeopathic medications) in 1993 as she has at least 23 medical drug allergies noted in the chart and has occasional SOB and palpitations. Her blood pressure at home is between 135-140 mmHg while she is taking chlorthalidone 25 mg daily and hydralazine 50 mg 2 times a day. She is here today for HTN and ARTURO management. Patient states that last week she had a headache and elevated BP in the 140 systolic range and it remained that way for three days and took an extra dose of hydralazine and then resolved. Patient has no symptoms of chest pain. Patient has mild exertional shortness of breath. Dizziness - No Palpitations - No Leg edema - yes, but patient states it is improving as he is using a pump which was given to her by physical therapy for the leg swelling. Fatigue - No Snoring - sleep apnea - Yes, she claims to use BiPAP mask regularly at night. Patient drinks 1 - 2 cups of tea or caffeine containing beverages per day Patient does not smoke tobacco products. Patient drinks socially / uses small amount of alcohol periodically Patient denies recreational drug use / abuse. Social History Tobacco Use Smoking status: Never Smokeless tobacco: Never Vaping Use Vaping Use: Never used Substance Use Topics Alcohol use: No Drug use: No FAMILY HISTORY Problem Relation Age of Onset Diabetes Father Hypertension Father No Ocular Disease No Family History Cataract No Family History Glaucoma No Family History Detached Retina No Family History REVIEW OF SYSTEMS: SYSTEMIC: No fever, chills, or change in weight or appetite HEENT: No recent change in vision or hearing. Respiratory: No hemoptysis, cough. CARDIOVASCULAR: See HPI. GI: No recent nausea, vomiting or diarrhea. : No recent hematuria or dysuria. SKIN: No recent itching or eruption. PSYCH: No recent active anxiety or depression. HEMATOLOGY/ONCOLOGY: No recent diagnosis of bleeding or cancer. ENDOCRINE: No recent polyuria or heat intolerance. NEURO: No recent TIA, stroke or seizures. RHEUMATOLOGY: No recent active connective tissue disease. Rest of the review of system is unremarkable. PAST MEDICAL HISTORY Diagnosis Date Cancer (HCC) lung and liver Colon cancer (HCC) Fibromyalgia Hypertension Stroke (HCC) PAST SURGICAL HISTORY Procedure Laterality Date COLON SURGERY HX COLONOSCOPY FLX DX W/COLLJ SPEC WHEN PFRMD 2009 Colonoscopy HYSTERECTOMY HX KNEE SURGERY HX Left 2009 XCAPSL CTRC RMVL INSJ IO LENS PROSTH W/O ECP Left 08/06/2019 Cataract Extraction with PC IOL / LRI XCAPSL CTRC RMVL INSJ IO LENS PROSTH W/O ECP Right 12/11/2019 Cataract Extraction with PC (TORIC) IOL ALLERGIES Allergen Reactions Iodine [Contrast Dy* Hives Lasix [Furosemide] Rash Penicillins Itching, Anaphylaxis Red Dye Swelling Sulfa (Sulfonamide * Itching, Anaphylaxis Tape [Adhesive Tape* Rash Adhesive Rash Amoxicillin-Pot Cla* Unknown Chlorthalidone Shortness of Breath Ciprofloxacin Rash Clindamycin Unknown Erythromycin Unknown Hydrochlorothiazide Shortness of Breath Hydrocodone Unknown Iodinated Contrast * Rash Latex Rash Losartan Rash, Swelling Mandelamine [Methe* Unknown Methenamine Other: See Comments Metoprolol Unknown Minocycline Unknown Moxifloxacin Unknown Naldecon Unknown Neomycin Unknown Nitrofurantoin Unknown Pseudoephedrine Hcl Unknown Shellfish Containin* Unknown [place] Unknown Sulfamethoxazole-Tr* Unknown Iodine Hives CURRENT MEDICATIONS: hydrALAZINE (APRESOLINE) 50 mg tablet Take 50 mg by mouth as needed. Miscellaneous Medical Supply [employer] In Line Bacterial Filter Blood Pressure Monitor (BLOOD PRESSURE KIT) kit 1 Each once daily. COMPOUNDED PRESCRIPTION bipap machine and all supplies, mask ect Settings 07/13 atenolol (TENORMIN) 25 mg tablet Take 1 tablet by mouth once daily (Patient not taking: Reported on 02/08/2024) potassium chloride (K-TAB) 10 mEq tablet Take 1 tablet by mouth once daily (Patient not taking: Reported on 02/08/2024) hydroCHLOROthiazide 25 mg tablet Take 1 tablet by mouth once daily. (Patient not taking: Reported on 02/08/2024) OZEMPIC 0.25 mg or 0.5 mg(2 mg/1.5 mL) pen INJECT 0.25 MG SUBCUTANEOUSLY EVERY WEEK FOR 4 DOSES (Patient not taking: Reported on 02/08/2024) MUCINEX 600 mg 12 hr tablet Take 1 tablet by mouth tw (more content not included)... [facility] 02-08-2024 Instructions Kristin Mariee MD - 02/08/2024 2:31 PM EDT I thank you for coming to the cardiology clinic today for evaluation. If you get a survey from [facility], please take time to complete it so that we can continue to provide better services or improve our service. Your blood pressure has been noted to be elevated and I recommend to read the following information to familiarize yourself with hypertension and its treatment. What is high blood pressure? Blood pressure is the measurement of the pressure or force of blood pushing against blood vessel hurley. In hypertension (high blood pressure), the pressure against the blood vessel hurley is consistently too high. High blood pressure is often called the silent killer because you may not be aware that anything is wrong, but the damage is occurring within your body. The only way to know if you have high blood pressure is to have your blood pressure taken. It is best to know your numbers and make the changes that can help prevent or limit damage. Understanding BP readings Your blood pressure reading has two numbers. The first is the systolic, which measures the pressure on the blood vessel hurley when your heart beats. The second number is the diastolic, which measures the pressure on your blood vessels between beats when the heart is at rest. What is a normal blood pressure reading? Blood Pressure Category Systolic mm Hg (upper number) Diastolic mm Hg (lower number) Normal less than 120 and less than 80 Prehypertension 120 - 139 or 80 - 89 High Blood Pressure (Hypertension) Stage 1 140 - 159 or 90 - 99 High Blood Pressure (Hypertension) Stage 2 160 or higher or 100 or higher Hypertensive Crisis (Emergency care needed) Higher than 180 or Higher than 110 mmHg = millimeters of mercury - the unit of measure for blood pressure What can happen if high blood pressure is not treated? Stroke Enlarged heart Heart failure Peripheral vascular disease Heart attack Kidney disease/failure Who is more likely to have high blood pressure? People with family members who have high blood pressure, cardiovascular disease, or diabetes -Americans Women who are Women who take control pills People over 35 People who are overweight People who are not active People who drink a lot of alcohol People who eat too many fatty foods or foods with too much salt People who smoke What should I do if I have high blood pressure? If you have been diagnosed with high blood pressure, you should discuss your target blood pressure with your healthcare provider. Check your own blood pressure at home as recommended. Eat healthy foods that are low in salt and fat. Achieve and maintain your ideal body weight. Limit alcohol to no more than two drinks each day. One drink is defined as 1 oz. of alcohol, 5 oz. of wine, or 12 oz. of beer. Be more physically active. Quit smoking. Work on controlling anger and managing stress. Take high blood pressure medicine if your healthcare provider prescribes it, and follow the healthcare provider's directions carefully. Have regular blood pressure checks by your healthcare provider. What should I include in my diet to control high blood pressure? Eat foods that are lower in fat, salt, and calories, such as skim or 1% milk, fresh vegetables and fruits, and whole grain, rice, and pasta. (Ask your doctor or healthcare provider for a more detailed list of salt-free foods to eat.) Use flavorings, spices, and herbs to make foods tasty without using salt. Avoid or cut down on butter and margarine, regular salad dressings, fatty meats, whole milk dairy products, fried foods, processed foods or fast foods, and salted snacks. Ask your healthcare provider if you should increase potassium in your diet or if you need to take a potassium supplement. Discuss the Dietary Approaches to Stop Hypertension (DASH) diet with your healthcare provider. How can I be more active? Check first with your healthcare provider before increasing your physical activity. Ask your provider what type and amount of exercise is right for you. Choose aerobic activities such as walking, biking, or swimming. Start slowly and increase activity gradually. Aim for a regular routine of activity five times a week for 30 to 45 minutes each session. Activity can be done in 10-minute sessions to add up to the 30-45 minutes total. documented in this encounter [facility] 02-08-2024 History of Present illness Narrative Images from the original note were not included. [facility] [place] Susanna Pascal Department of Cardiovascular Medicine SECTION OF [facility] CARDIOLOGY [facility] 02/08/2024 OUTPATIENT VISIT TYPE Established F/Up regarding Hypertension and ARTURO, medication noncompliance with multiple allergies. HISTORY OF PRESENT ILLNESS: Ms. 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 used homeopathic medications) in 1993 as she has at least 23 medical drug allergies noted in the chart and has occasional SOB and palpitations. Her blood pressure at home is between 135-140 mmHg while she is taking chlorthalidone 25 mg daily and hydralazine 50 mg 2 times a day. She is here today for HTN and ARTURO management. Patient states that last week she had a headache and elevated BP in the 140 systolic range and it remained that way for three days and took an extra dose of hydralazine and then resolved. Patient has no symptoms of chest pain. Patient has mild exertional shortness of breath. Dizziness - No Palpitations - No Leg edema - yes, but patient states it is improving as he is using a pump which was given to her by physical therapy for the leg swelling. Fatigue - No Snoring - sleep apnea - Yes, she claims to use BiPAP mask regularly at night. Patient drinks 1 - 2 cups of tea or caffeine containing beverages per day Patient does not smoke tobacco products. Patient drinks socially / uses small amount of alcohol periodically Patient denies recreational drug use / abuse. Social History Tobacco Use Smoking status: Never Smokeless tobacco: Never Vaping Use Vaping Use: Never used Substance Use Topics Alcohol use: No Drug use: No FAMILY HISTORY Problem Relation Age of Onset Diabetes Father Hypertension Father No Ocular Disease No Family History Cataract No Family History Glaucoma No Family History Detached Retina No Family History REVIEW OF SYSTEMS: SYSTEMIC: No fever, chills, or change in weight or appetite HEENT: No recent change in vision or hearing. Respiratory: No hemoptysis, cough. CARDIOVASCULAR: See HPI. GI: No recent nausea, vomiting or diarrhea. : No recent hematuria or dysuria. SKIN: No recent itching or eruption. PSYCH: No recent active anxiety or depression. HEMATOLOGY/ONCOLOGY: No recent diagnosis of bleeding or cancer. ENDOCRINE: No recent polyuria or heat intolerance. NEURO: No recent TIA, stroke or seizures. RHEUMATOLOGY: No recent active connective tissue disease. Rest of the review of system is unremarkable. PAST MEDICAL HISTORY Diagnosis Date Cancer (HCC) lung and liver Colon cancer (HCC) Fibromyalgia Hypertension Stroke (HCC) PAST SURGICAL HISTORY Procedure Laterality Date COLON SURGERY HX COLONOSCOPY FLX DX W/COLLJ SPEC WHEN PFRMD 2010 Colonoscopy HYSTERECTOMY HX KNEE SURGERY HX Left 2009 XCAPSL CTRC RMVL INSJ IO LENS PROSTH W/O ECP Left 08/06/2019 Cataract Extraction with PC IOL / LRI XCAPSL CTRC RMVL INSJ IO LENS PROSTH W/O ECP Right 12/11/2019 Cataract Extraction with PC (TORIC) IOL ALLERGIES Allergen Reactions Iodine [Contrast Dy* Hives Lasix [Furosemide] Rash Penicillins Itching, Anaphylaxis Red Dye Swelling Sulfa (Sulfonamide * Itching, Anaphylaxis Tape [Adhesive Tape* Rash Adhesive Rash Amoxicillin-Pot Cla* Unknown Chlorthalidone Shortness of Breath Ciprofloxacin Rash Clindamycin Unknown Erythromycin Unknown Hydrochlorothiazide Shortness of Breath Hydrocodone Unknown Iodinated Contrast * Rash Latex Rash Losartan Rash, Swelling Mandelamine [Methe* Unknown Methenamine Other: See Comments Metoprolol Unknown Minocycline Unknown Moxifloxacin Unknown Naldecon Unknown Neomycin Unknown Nitrofurantoin Unknown Pseudoephedrine Hcl Unknown Shellfish Containin* Unknown [place] Unknown Sulfamethoxazole-Tr* Unknown Iodine Hives CURRENT MEDICATIONS: hydrALAZINE (APRESOLINE) 50 mg tablet Take 50 mg by mouth as needed. Miscellaneous Medical Supply [employer] In Line Bacterial Filter Blood Pressure Monitor (BLOOD PRESSURE KIT) kit 1 Each once daily. COMPOUNDED PRESCRIPTION bipap machine and all supplies, mask ect Settings 07/13 atenolol (TENORMIN) 25 mg tablet Take 1 tablet by mouth once daily (Patient not taking: Reported on 02/08/2024) potassium chloride (K-TAB) 10 mEq tablet Take 1 tablet by mouth once daily (Patient not taking: Reported on 02/08/2024) hydroCHLOROthiazide 25 mg tablet Take 1 tablet by mouth once daily. (Patient not taking: Reported on 02/08/2024) OZEMPIC 0.25 mg or 0.5 mg(2 mg/1.5 mL) pen INJECT 0.25 MG SUBCUTANEOUSLY EVERY WEEK FOR 4 DOSES (Patient not taking: Reported on 02/08/2024) MUCINEX 600 mg 12 hr tablet Take 1 tablet by mouth twice daily. (Patient not taking: Reported on 02/08/2024) fexofenadine (ELIZA ALLERGY) 60 mg tablet Take 1 tablet by mouth once daily. (Patient not taking: Reported on 02/08/2024) PEG 400-Propylene Glycol (SYSTANE) 0.4-0.3 % dpet Use in both eyes twice daily as needed. (Patient not taking: Reported on 02/08/2024) ZINC ORAL Take by mouth. (Patient not taking: Reported on 02/08/2024) cholecalciferol, vitamin D3, (VITAMIN D3 ORAL) Take by mouth. (Patient not taking: Reported on 02/08/2024) Magnesium 200 mg tab Take 2 tablets by mouth once daily. Triple magnesium 400 mg (Patient not taking: Reported on 02/08/2024) PHYSICAL EXAM: BP 136/82 Pulse 100 Resp 20 Ht 160 cm (5' 3 ) Wt 135.2 kg (298 lb) BMI 52.79 kg/m Last 2 Encounter Wt Readings: Date: Wt: 05/21/2019 113 kg (249 lb 1.6 oz) 06/14/2018 150.1 kg (331 lb) Awake, alert, oriented times 3. Patient is not in acute respiratory distress. SKIN: No petechial rash or ecchymosis noted. Head : Normocephalic. face symmetrical NECK: Supple. No JVD. Mild carotid bruit. No thyromegaly. ENT: Pharyngeal structures are crowded and uvula is not visualized. Mallampati 4 LUNGS: Clear to auscultation bilaterally. CARDIAC: Normal S1 and S2, no systolic murmur. ABDOMEN: Soft, nontender, bowel sounds present. EXTREMITIES: No cyanosis, clubbing, lymphedema is noted on legs sparing the feet. PULSES: Peripheral pulses are 2+ palpable in DP and PT arteries. NEURO: Non-focal. Moves all extremities. Musculoskeletal: No significant deformities. Last Labs: Sodium Date Value Ref Range Status 08/25/2022 138 136 - 144 mmol/L Final Potassium Date Value Ref Range Status 08/25/2022 4.0 3.7 - 5.1 mmol/L Final Chloride Date Value Ref Range Status 08/25/2022 103 97 - 105 mmol/L Final CO2 Date Value Ref Range Status 08/25/2022 24 22 - 30 mmol/L Final Glucose Date Value Ref Range Status 08/25/2022 134 (H) 74 - 99 mg/dL Final Comment: The [place] [employer] (ADA) provides guidance for cutoff values for fasting glucose and random glucose. The ADA defines fasting as no caloric intake for at least 8 hours. Fasting plasma glucose results between 100 to 125 mg/dL indicate increased risk for diabetes (prediabetes). Fasting plasma glucose results greater than or equal to 126 mg/dL meet the criteria for diagnosis of diabetes. In the absence of unequivocal hyperglycemia, results should be confirmed by repeat testing. In a patient with classic symptoms of hyperglycemia or hyperglycemic crisis, random plasma glucose results greater than or equal to 200 mg/dL meet the criteria for diagnosis of diabetes. Reference: Standards of Medical Care in Diabetes 2016, [place] [employer]. Diabetes Care. 2016.39(Suppl 1). BUN Date Value Ref Range Status 08/25/2022 20 7 - 21 mg/dL Final Creatinine Date Value Ref Range Status 08/25/2022 0.97 (H) 0.58 - 0.96 mg/dL Final Calcium, Total Date Value Ref Range Status 08/25/2022 9.5 8.5 - 10.2 mg/dL Final Albumin Date Value Ref Range Status 08/25/2022 4.2 3.9 - 4.9 g/dL Final Protein, Total Date Value Ref Range Status 08/25/2022 7.5 6.3 - 8.0 g/dL Final AST Date Value Ref Range Status 08/25/2022 20 13 - 35 U/L Final ALT Date Value Ref Range Status 08/25/2022 18 7 - 38 U/L Final Alkaline Phosphatase Date Value Ref Range Status 08/25/2022 106 34 - 123 U/L Final Bilirubin, Total Date Value Ref Range Status 08/25/2022 1.7 (H) 0.2 - 1.3 mg/dL Final Triglyceride Date Value Ref Range Status 08/25/2022 177 (H) <150 mg/dL Final Comment: <150 mg/dL, Normal 150-199 mg/dL, Borderline high 200-499 mg/dL, High >499 mg/dL, Very high Cholesterol, Total Date Value Ref Range Status 08/25/2022 165 <200 mg/dL Final Comment: <200 mg/dL, Desirable 200-239 mg/dL, Borderline high >239 mg/dL, High HDL Cholesterol Date Value Ref Range Status 08/25/2022 51 >39 mg/dL Final Comment: 40-59 mg/dL, Acceptable >59 mg/dL, High: Negative risk factor for coronary heart disease <40 mg/dL, Low: Positive risk factor for coronary heart disease LDL Cholesterol Date Value Ref Range Status 08/25/2022 79 <100 mg/dL Final Comment: <100 mg/dL, Optimal 100-129 mg/dL, Near optimal/above optimal 130-159 mg/dL, Borderline high 160-189 mg/dL, High >189 mg/dL, Very high Secondary prevention optimal LDL Cholesterol levels are recommended to be < 70 mg/dL Cardiovascular Testing: Sleep study done in 2013: showed obstructive sleep apnea of severe nature which needed CPAP SPECT FINDINGS: Jan 14 2014 The overall quality of the study is fair. There is moderate breast attenuation artifact noted. The right and left ventricles are normal in size. Stress and rest SPECT images show no evidence of infarction or ischemia. Tracer uptake is otherwise homogeneous throughout the left ventricular myocardium on both the stress and rest images. Gated post-stress SPECT imaging shows normal myocardial thickening with a global ejection fraction of 63% and normal regional wall motion. IMPRESSION: 1. NO SCINTIGRAPHIC EVIDENCE OF ISCHEMIA OR INFARCTION. 2. NORMAL GLOBAL AND REGIONAL LEFT VENTRICULAR FUNCTION. Transcribe by MUKUL WOO. Echo 06/04/19: Echo exam indication: HTN - The left ventricle is normal in size. There is mild concentric left ventricular hypertrophy. Left ventricular systolic function is normal. EF = 64 5% (2D biplane) Grade I left ventricular diastolic dysfunction. - The right ventricle is normal in size. Right ventricular systolic function is normal. . EKG 06/21/21: NSR with incomplete RBBB and right axis deviation EKG 05/29/22: NSR with incomplete RBBB- and right axis deviation with possible left atrial enlargement EK02/08/24 NSR WITH INCOMPLETE RBBB, LPHB IMPRESSION / RECOMMENDATIONS / PLAN: Encounter Diagnosis ICD-10-CM 1. Essential hypertension I10 ECG COMPLETE 2. Obesity, Class III, BMI 40-49.9 (morbid obesity) ([facility]) E66.01 3. Obstructive sleep apnea syndrome G47.33 4. Lymphedema praecox I89.0 5. Morbid obesity due to excess calories ([facility]) E66.01 HTN: - 132/84 in office today controlled with hydralazine 50 mg once daily. I advised her to be compliant with this medicine because it seems like she takes hydralazine after checking her blood pressure and only takes it when the blood pressure is elevated more than 140/90 mmHg. I advised her to follow-up with her primary care physician. I encouraged her to restrict salt and calorie intake. She does not want to take any other medications and feels that she has side effects with most of the other medication except for hydralazine. ARTURO on BiPAP mask: I advised her to use her BiPAP mask every night properly for 6-8 hours so that it would help controlling her blood pressures. Weight loss with calorie restriction was emphasized and a director life insurance was recommenced but the patient declined for now due to feeling fatigued from previous COVID illness. Salt and caffeine restriction was also emphasized. I congratulated her on losing weight from 330 pounds down to 298 pounds. She promises me that she can bring her weight down 120 pounds to 270 in next few months. Patient is counseled and educated about the symptoms and treatment plan. Follow up with her primary care provider. Kristin Mariee MD, FACC. Resistor Coater, Dept of Medicine, [facility]. Monorail Hooker of Ambulatory Cardiology, [facility]. Monorail Hooker of Cardiac Catheterization laboratory, [facility]. Asst. spray rig operator, [facility] and [facility] Staff Lumber Inspector, Heart, Vascular and Thoracic [place], Susanna Pascal Department of Cardiovascular Medicine. documented in this encounter [facility] 12-15-2023 Note HNO ID: [id number] Author: NOTE, INTERFACE, ? Service: ? Author Type: ? Type: Progress Notes Filed: 12/15/2023 03:42 Note Text: Epic Scheduled Downtime: 12/15/2023 1:00:00 AM to 12/15/2023 3:24:[address] [facility] 12-14-2023 Miscellaneous Notes Pharmacy electronically requests the following refill(s) Requested Prescriptions Pending Prescriptions Disp Refills atenolol (TENORMIN) 25 mg tablet [Pharmacy Med Name: Atenolol 25 MG Oral Tablet] 90 tablet 0 Sig: Take 1 tablet by mouth once daily potassium chloride (K-TAB) 10 mEq tablet [Pharmacy Med Name: Potassium Chloride ER 10 MEQ Oral Tablet Extended Release] 90 tablet 0 Sig: Take 1 tablet by mouth once daily [facility] 05/29/2022 [facility] 08/2022 Cely Reaves MA documented in this encounter [facility] 11-30-2023 Miscellaneous Notes Spoke to pt Reviewed medication change advised per Dr Mariee She is a bit agitated and does not want to begin new medicine yet, she wants to let her body get over the allergic reaction she had. She states that her throat was itching and she had to take Benadryl from the new manufactured medication. She currently denies any distress. She will begin the HCTZ on Sunday and let us know how it goes 16 minute phone discussion Before starting another medication patient would like to speak with Dr. Mariee or his nurse. She has questions and concerns. She can be reached at [phone]. He can take hydrochlorothiazide [address] of chlorthalidone I have sent her prescription to [facility] pharmacy today. Forward to Dr Mariee Patient calling in regards to the chlorthalidone (HYGROTON) 25 mg tablet 90 tablet 3 03/19/2023 -- Sig: Take 1 tablet by mouth once daily. Sent to pharmacy as: chlorthalidone (HYGROTON) 25 mg tablet Class: Normal Route: ORAL Order: [id number] E-Prescribing Status: Receipt confirmed by pharmacy (03/19/2023 4:09 PM EDT) Stating the maternal child nurse has been changed and since she has had a reaction to the medicine with itching face eyes etc, patient did have to take benadryl and will not take this until it is figured out. The original maternal child nurse NIZAGEN please advise. She can not take [facility] maternal child nurse documented in this encounter [facility] 11-08-2023 Miscellaneous Notes Noted, I discontinued hydralazine in the medication record. Called patient. Had in depth conversation with patient. Patient stated she is a long hauler COVID patient. C/o on going fatigue and cough. Denies new or worsening symptoms . Stated she has seen her PCP every 3-4 months (out of network) and stated provider has assessed and addressed. No new concerns. Patient expressed hesitation about coming into office for 11/12/2023 appointment. Doesn't wish to get expose to any illness going around. Patient aware appointment can be switched to virtual instead. Patient requesting to reschedule to a later date so she is able to rest and avoid any illnesses's. Patient accepted next available Dr. Mariee , 02/2024. Patient informed if any new symptoms or concerns to update office for sooner appointment. Patient verbalized understanding. Patient stated she hasn't been taking hydralazine 50mg for at least a year. BP has been good at home, readings 120's/70's, HR 60-70's. KENIA note: 05/29/2022 HTN: - 132/84 in office today controlled with hydralazine 50 mg once daily (pt taking this dose on her own) and chlorthalidone 25 mg one time a day. If BP is uncontrolled will increase hydralazine to 50mg two to three times daily. - atenolol 25 mg once daily to decrease blood pressure and heart rate. Patient aware will forward update to Dr. 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 PT notified the next opening was January 06 if she wanted to reschedule. PT would like to speak with a nurse to decide if she should be seen next week or if she can wait. Please contact patient at [phone] documented in this encounter [facility] 08-24-2023 Note HNO ID: [id number] Author: Lesia Schulz Service: ? Author Type: ? Type: Progress Notes Filed: 08/27/2023 11:57 AM Note Text: Pt chart reviewed as part of population health initiative focused on statin use in patients with diabetes (DM) or cardiovascular disease (CVD). Percy Ware is identified through data from [employer] (insurer) as a potential candidate for statin therapy with no prescriptions claims processed for a statin medication in this calendar year. Chart Review The following case components were reviewed for current or historic statin use: Confirmed diabetes and or CVD: NO Current/Active med list includes a statin: NO IF YES, Last order date and quantity: N/A Last pharmacy fill date: N/A IF NO, reason identified (contraindication, intolerance, exclusion, etc.): Exclusion - no history/diagnosis of diabetes. Taking Ozempic for weight loss. No A1c > 6.4 % in chart. ALLERGIES Allergen Reactions Iodine [Contrast Dy* Hives Lasix [Furosemide] Rash Penicillins Itching, Anaphylaxis Red Dye Swelling Sulfa (Sulfonamide * Itching, Anaphylaxis Tape [Adhesive Tape* Rash Adhesive Rash Amoxicillin-Pot Cla* Unknown Ciprofloxacin Rash Clindamycin Unknown Erythromycin Unknown Hydrocodone Unknown Iodinated Contrast * Rash Latex Rash Losartan Rash, Swelling Mandelamine [Methe* Unknown Methenamine Other: See Comments Metoprolol Unknown Minocycline Unknown Moxifloxacin Unknown Naldecon Unknown Neomycin Unknown Nitrofurantoin Unknown Pseudoephedrine Hcl Unknown Shellfish Containin* Unknown [place] Unknown Sulfamethoxazole-Tr* Unknown Iodine Hives PAST MEDICAL HISTORY Diagnosis Date Cancer (HCC) lung and liver Colon cancer (HCC) Fibromyalgia Hypertension Stroke (HCC) Cholesterol, Total (mg/dL) Date Value 08/25/2022 165 05/29/2019 153 HDL Cholesterol (mg/dL) Date Value 08/25/2022 51 05/29/2019 58 LDL Cholesterol (mg/dL) Date Value 08/25/2022 79 01/10/2014 70 LDL (mg/dL) Date Value 05/29/2019 80 Triglyceride (mg/dL) Date Value 08/25/2022 177 05/29/2019 77 Lesia Schulz PharmD Candidate 2023 [facility] 08-24-2023 Note HNO ID: [id number] Author: Papo Alonso RPh Service: ? Author Type: Pharmacist Type: Progress Notes Filed: 08/27/2023 11:57 AM Note Text: Case reviewed, agree with possible exclusion. Papo Alonso PharmD, BCACP [facility] 08-24-2023 Note HNO ID: [id number] Author: Nya Smiley RPh Service: ? Author Type: Pharmacist Type: Progress Notes Filed: 09/03/2023 3:44 PM Note Text: Added to exclusion list - taking diabetes medication for weight loss without diabetes diagnosis Nya Smiley PharmD, BCACP Primary Care Pharmacist [facility] 08-24-2023 History of Present illness Narrative Pt chart reviewed as part of population health initiative focused on statin use in patients with diabetes (DM) or cardiovascular disease (CVD). Percy Ware is identified through data from [employer] (insurer) as a potential candidate for statin therapy with no prescriptions claims processed for a statin medication in this calendar year. Chart Review The following case components were reviewed for current or historic statin use: Confirmed diabetes and or CVD: NO Current/Active med list includes a statin: NO IF YES, Last order date and quantity: N/A Last pharmacy fill date: N/A IF NO, reason identified (contraindication, intolerance, exclusion, etc.): Exclusion - no history/diagnosis of diabetes. Taking Ozempic for weight loss. No A1c > 6.4 % in chart. ALLERGIES Allergen Reactions Iodine [Contrast Dy* Hives Lasix [Furosemide] Rash Penicillins Itching, Anaphylaxis Red Dye Swelling Sulfa (Sulfonamide * Itching, Anaphylaxis Tape [Adhesive Tape* Rash Adhesive Rash Amoxicillin-Pot Cla* Unknown Ciprofloxacin Rash Clindamycin Unknown Erythromycin Unknown Hydrocodone Unknown Iodinated Contrast * Rash Latex Rash Losartan Rash, Swelling Mandelamine [Methe* Unknown Methenamine Other: See Comments Metoprolol Unknown Minocycline Unknown Moxifloxacin Unknown Naldecon Unknown Neomycin Unknown Nitrofurantoin Unknown Pseudoephedrine Hcl Unknown Shellfish Containin* Unknown [place] Unknown Sulfamethoxazole-Tr* Unknown Iodine Hives PAST MEDICAL HISTORY Diagnosis Date Cancer (HCC) lung and liver Colon cancer (HCC) Fibromyalgia Hypertension Stroke (HCC) Cholesterol, Total (mg/dL) Date Value 08/25/2022 165 05/29/2019 153 HDL Cholesterol (mg/dL) Date Value 08/25/2022 51 05/29/2019 58 LDL Cholesterol (mg/dL) Date Value 08/25/2022 79 01/10/2014 70 LDL (mg/dL) Date Value 05/29/2019 80 Triglyceride (mg/dL) Date Value 08/25/2022 177 05/29/2019 77 Lesia Schulz, Mario Candidate 2023 Case reviewed, agree with possible exclusion. Papo Jose Guadalupe, PharmD, BCACP documented in this encounter [facility] 08-24-2023 Note Patient Outreach (PH POHE) PERCY WARE ([id number]) 1950 F Date Time Provider Department 08/24/23 PAPO ALONSO [facility] During your visit today, we recorded the following information about you: Papo Alonso RPh 08/27/2023 11:57 AM Signed Case reviewed, agree with possible exclusion. Papo Alonso PharmD, Nya Grande RPh 09/03/2023 3:44 PM Signed Added to exclusion list - taking diabetes medication for weight loss without diabetes diagnosis Nya Smiley PharmD, JULIO Primary Care Pharmacist [facility] Lesia Schulz 08/27/2023 11:57 AM Signed Pt chart reviewed as part of population health initiative focused on statin use in patients with diabetes (DM) or cardiovascular disease (CVD). Percy Ware is identified through data from [employer] (insurer) as a potential candidate for statin therapy with no prescriptions claims processed for a statin medication in this calendar year. Chart Review The following case components were reviewed for current or historic statin use: Confirmed diabetes and or CVD: NO Current/Active med list includes a statin: NO IF YES, Last order date and quantity: N/A Last pharmacy fill date: N/A IF NO, reason identified (contraindication, intolerance, exclusion, etc.): Exclusion - no history/diagnosis of diabetes. Taking Ozempic for weight loss. No A1c > 6.4 % in chart. ALLERGIES Allergen Reactions Iodine [Contrast Dy* Hives Lasix [Furosemide] Rash Penicillins Itching, Anaphylaxis Red Dye Swelling Sulfa (Sulfonamide * Itching, Anaphylaxis Tape [Adhesive Tape* Rash Adhesive Rash Amoxicillin-Pot Cla* Unknown Ciprofloxacin Rash Clindamycin Unknown Erythromycin Unknown Hydrocodone Unknown Iodinated Contrast * Rash Latex Rash Losartan Rash, Swelling Mandelamine [Methe* Unknown Methenamine Other: See Comments Metoprolol Unknown Minocycline Unknown Moxifloxacin Unknown Naldecon Unknown Neomycin Unknown Nitrofurantoin Unknown Pseudoephedrine Hcl Unknown Shellfish Containin* Unknown [place] Unknown Sulfamethoxazole-Tr* Unknown Iodine Hives PAST MEDICAL HISTORY Diagnosis Date Cancer (HCC) lung and liver Colon cancer (HCC) Fibromyalgia Hypertension Stroke (HCC) Cholesterol, Total (mg/dL) Date Value 08/25/2022 165 05/29/2019 153 HDL Cholesterol (mg/dL) Date Value 08/25/2022 51 05/29/2019 58 LDL Cholesterol (mg/dL) Date Value 08/25/2022 79 01/10/2014 70 LDL (mg/dL) Date Value 05/29/2019 80 Triglyceride (mg/dL) Date Value 08/25/2022 177 05/29/2019 77 Lesia Schulz, PharmD Candidate 2023 Allergies As of Date: 08/24/2023 Noted Allergy Reaction IODINE (CONTRAST DYE) 01/09/2014 4 - Hives LASIX (FUROSEMIDE) 12/29/2013 2 - Rash PENICILLINS 05/19/2013 9 - Itching 10 - Anaphylaxis RED DYE 01/09/2014 7 - Swelling SULFA (SULFONAMIDE ANTIBIOTICS) 05/19/2013 9 - Itching 10 - Anaphylaxis TAPE (ADHESIVE TAPE (ROSINS)) 01/09/2014 2 - Rash ADHESIVE 03/23/2022 2 - Rash AMOXICILLIN-POT CLAVULANATE 03/14/2016 16 - Unknown CIPROFLOXACIN 12/14/2014 2 - Rash CLINDAMYCIN 03/14/2016 16 - Unknown ERYTHROMYCIN 03/14/2016 16 - Unknown HYDROCODONE 03/14/2016 16 - Unknown IODINATED CONTRAST MEDIA 05/23/2022 2 - Rash LATEX 05/10/2018 2 - Rash LOSARTAN 12/14/2014 2 - Rash 7 - Swelling Mandelamine (METHENAMINE MANDELA*03/14/2016 16 - Unknown METHENAMINE 03/23/2022 14 - Other: See Comments METOPROLOL 05/14/2018 16 - Unknown MINOCYCLINE 03/14/2016 16 - Unknown MOXIFLOXACIN 03/14/2016 16 - Unknown NALDECON 03/14/2016 16 - Unknown NEOMYCIN 03/14/2016 16 - Unknown NITROFURANTOIN 03/14/2016 16 - Unknown PSEUDOEPHEDRINE HCL 03/14/2016 16 - Unknown SHELLFISH CONTAINING PRODUCTS 03/14/2016 16 - Unknown STRAWBERRY 03/14/2016 16 - Unknown SULFAMETHOXAZOLE-TRIMETHOPRIM 03/14/2016 16 - Unknown IODINE 03/23/2022 4 - Hives Date Reviewed: 11/22/2022 Reviewed by: Andria Gaines (Rn), RN - Fully Assessed Reason for Visit: Allied Health Visit [5] Cmt: Statin Use Review Prescriptions as of 09/03/2023 - chlorthalidone (HYGROTON) 25 mg tablet Take 1 tablet by mouth once daily. - hydrALAZINE (APRESOLINE) 50 mg tablet Take 1 tablet by mouth three times daily. - OZEMPIC 0.25 mg or 0.5 mg(2 mg/1.5 mL) pen INJECT 0.25 MG SUBCUTANEOUSLY EVERY WEEK FOR 4 DOSES - atenolol (TENORMIN) 25 mg tablet Take 1 tablet by mouth once daily - potassium chloride (K-TAB) 10 mEq tablet Take 1 tablet by mouth once daily - MUCINEX 600 mg 12 hr tablet Take 1 tablet by mouth twice daily. - Miscellaneous Medical Supply [employer] In Line Bacterial Filter - fexofenadine (ELIZA ALLERGY) 60 mg tablet Take 1 tablet by mouth once daily. - PEG 400-Propylene Glycol (SYSTANE) 0.4-0.3 % dpet Use in both eyes twice daily as needed. - ZINC ORAL Take by mouth. - cholecalciferol, vitamin D3, (VITAMI (more content not included)... [facility] 07-20-2023 Note Patient Outreach (VANE FAMPLE) PERCY WARE ([id number]) 1950 F Date Time Provider Department 07/20/23 CLAU ABDI During your visit today, we recorded the following information about you: Clau Abdi 07/20/2023 9:42 AM Signed POPULATION HEALTH NAVIGATION OUTREACH Action/FYI Patient Identified by Name and : YES, via phone Outreach Outcome/Action Spoke to patient / parent / legal guardian: PCP confirmed / updated Chart Review Added to Mark attribution list PCP attributed per Mark is Dr Crystal Batista, Update sent stating PCP is Dr Fiorella Puente in [place] Reason for Outreach Care Gap or Scheduling/Wellness visits Payer: Payor: [employer] / Plan: [employer] HMO / Product Type: HMO / Care Gap Reviewed:: Annual Wellness visit Controlling Blood Pressure Colorectal Cancer Screening Diabetic Eye Exam [id number] Signature: Clau Abdi July 20, 2023 9:31 AM Allergies As of Date: 07/20/2023 Noted Allergy Reaction IODINE (CONTRAST DYE) 01/09/2014 4 - Hives LASIX (FUROSEMIDE) 12/29/2013 2 - Rash PENICILLINS 05/19/2013 9 - Itching 10 - Anaphylaxis RED DYE 01/09/2014 7 - Swelling SULFA (SULFONAMIDE ANTIBIOTICS) 05/19/2013 9 - Itching 10 - Anaphylaxis TAPE (ADHESIVE TAPE (ROSINS)) 01/09/2014 2 - Rash ADHESIVE 03/23/2022 2 - Rash AMOXICILLIN-POT CLAVULANATE 03/14/2016 16 - Unknown CIPROFLOXACIN 12/14/2014 2 - Rash CLINDAMYCIN 03/14/2016 16 - Unknown ERYTHROMYCIN 03/14/2016 16 - Unknown HYDROCODONE 03/14/2016 16 - Unknown IODINATED CONTRAST MEDIA 05/23/2022 2 - Rash LATEX 05/10/2018 2 - Rash LOSARTAN 12/14/2014 2 - Rash 7 - Swelling Mandelamine (METHENAMINE MANDELA*03/14/2016 16 - Unknown METHENAMINE 03/23/2022 14 - Other: See Comments METOPROLOL 05/14/2018 16 - Unknown MINOCYCLINE 03/14/2016 16 - Unknown MOXIFLOXACIN 03/14/2016 16 - Unknown NALDECON 03/14/2016 16 - Unknown NEOMYCIN 03/14/2016 16 - Unknown NITROFURANTOIN 03/14/2016 16 - Unknown PSEUDOEPHEDRINE HCL 03/14/2016 16 - Unknown SHELLFISH CONTAINING PRODUCTS 03/14/2016 16 - Unknown STRAWBERRY 03/14/2016 16 - Unknown SULFAMETHOXAZOLE-TRIMETHOPRIM 03/14/2016 16 - Unknown IODINE 03/23/2022 4 - Hives Date Reviewed: 11/22/2022 Reviewed by: Andria Gaines (Rn), RN - Fully Assessed Reason for Visit: Population Health Navigation Outreach [3910] Cmt: Mark Attributed Member- PCP Attribution Update- Followed Dr Puente to [place] Prescriptions as of 07/20/2023 - atenolol (TENORMIN) 25 mg tablet Take 1 tablet by mouth once daily - Blood Pressure Monitor (BLOOD PRESSURE KIT) kit 1 Each once daily. - chlorthalidone (HYGROTON) 25 mg tablet Take 1 tablet by mouth once daily. - cholecalciferol, vitamin D3, (VITAMIN D3 ORAL) Take by mouth. - COMPOUNDED PRESCRIPTION bipap machine and all supplies, mask ect Settings 07/13 - fexofenadine (ELIZA ALLERGY) 60 mg tablet Take 1 tablet by mouth once daily. - hydrALAZINE (APRESOLINE) 50 mg tablet Take 1 tablet by mouth three times daily. - Magnesium 200 mg tab Take 2 tablets by mouth once daily. Triple magnesium 400 mg - Miscellaneous Medical Supply [employer] In Line Bacterial Filter - MUCINEX 600 mg 12 hr tablet Take 1 tablet by mouth twice daily. - OZEMPIC 0.25 mg or 0.5 mg(2 mg/1.5 mL) pen INJECT 0.25 MG SUBCUTANEOUSLY EVERY WEEK FOR 4 DOSES - PEG 400-Propylene Glycol (SYSTANE) 0.4-0.3 % dpet Use in both eyes twice daily as needed. - potassium chloride (K-TAB) 10 mEq tablet Take 1 tablet by mouth once daily - ZINC ORAL Take by mouth. Problem List As Of Date 07/20/2023 Noted Resolved Sleep apnea [G47.30] 05/20/2013 Edema [R60.9] 12/26/2013 Fibromyalgia [M79.7] Essential hypertension [I10] Morbid obesity due to excess calories (HCC) [E6*10/10/2016 History of colon cancer, stage IV [Z85.038] 10/10/2016 Personal history of allergy to medicinal agent *10/10/2016 Combined forms of age-related cataract of both *05/10/2018 12/16/2019 Vitreous floaters, bilateral [H43.393] 05/10/2018 Punctate keratitis, bilateral [H16.143] 05/10/2018 Obesity, Class III, BMI >= 40 [E66.01] 06/14/2018 Combined forms of age-related cataract of left *07/28/2019 12/16/2019 Regular astigmatism of left eye [H52.222] 07/28/2019 Combined forms of age-related cataract of right*07/28/2019 12/16/2019 Regular astigmatism of right eye [H52.221] 07/28/2019 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 07-20-2023 Note HNO ID: [id number] Author: Clau Abdi Service: ? Author Type: ? Type: Progress Notes Filed: 07/20/2023 9:42 AM Note Text: POPULATION HEALTH NAVIGATION OUTREACH Action/FYI Patient Identified by Name and : YES, via phone Outreach Outcome/Action Spoke to patient / parent / legal guardian: PCP confirmed / updated Chart Review Added to [employer] attribution list PCP attributed per Mark is Dr Crystal Batista, Update sent stating PCP is Dr Fiorella Puente in [place] Reason for Outreach Care Gap or Scheduling/Wellness visits Payer: Payor: [employer] / Plan: [employer] HMO / Product Type: HMO / Care Gap Reviewed:: Annual Wellness visit Controlling Blood Pressure Colorectal Cancer Screening Diabetic Eye Exam [id number] Signature: Clau Abdi July 20, 2023 9:[address] [facility] 07-20-2023 History of Present illness Narrative POPULATION HEALTH NAVIGATION OUTREACH Action/FYI Patient Identified by Name and : YES, via phone Outreach Outcome/Action Spoke to patient / parent / legal guardian: PCP confirmed / updated Chart Review Added to [place] attribution list PCP attributed per Mark is Dr Crystal Sheets, Update sent stating PCP is Dr Fiorella Puente in [place] Reason for Outreach Care Gap or Scheduling/Wellness visits Payer: Payor: [employer]IELD / Plan: [employer] HMO / Product Type: HMO / Care Gap Reviewed:: Annual Wellness visit Controlling Blood Pressure Colorectal Cancer Screening Diabetic Eye Exam [id number] Signature: Clau Abdi July 20, 2023 9:31 AM documented in this encounter [facility] 06-21-2023 Note HNO ID: [id number] Author: Carmela Tee Service: ? Author Type: ? Type: Progress Notes Filed: 06/21/2023 12:49 PM Note Text: Percy Ware is identified through a medication adherence outreach initiative based on pharmacy claims data from [employer] (insurer) for Non-insulin DM medication(s). Patient is reviewed 06/21/23 due to medication adherence concerns with the following medications (name, strength, sig): Ozempic 2mg once weekly . Per data/report, last fill date and days supply: Ozempic due 05/14/23 Per reconcile dispense, last fill date and days supply: Ozempic 04/16/23 for 28 ds Per call to pharmacy, last picked up date and days supply: n/a Contacted patient: No answer; left generic VM, MyChart Outcome of review/outreach: (choose outcome source and status) - Called pt LVM, Sent [employer] message to pt concerning Zach Tee Surgery Scheduling Coordinator [facility] 06-21-2023 Note Patient Outreach (PH POHE) PERCY WARE ([id number]) 1950 F Date Time Provider Department 06/21/23 FIORELLA PUENTE [facility] During your visit today, we recorded the following information about you: Carmela Tee 06/21/2023 12:49 PM Signed Percy Ware is identified through a medication adherence outreach initiative based on pharmacy claims data from [employer] (insurer) for Non-insulin DM medication(s). Patient is reviewed 06/21/23 due to medication adherence concerns with the following medications (name, strength, sig): Ozempic 2mg once weekly . Per data/report, last fill date and days supply: Ozempic due 05/14/23 Per reconcile dispense, last fill date and days supply: Ozempic 04/16/23 for 28 ds Per call to pharmacy, last picked up date and days supply: n/a Contacted patient: No answer; left generic Jerrod DICKENS Outcome of review/outreach: (choose outcome source and status) - Called pt LVM, Sent [employer] message to pt concerning Zach Tee Surgery Scheduling Coordinator Allergies As of Date: 06/21/2023 Noted Allergy Reaction IODINE (CONTRAST DYE) 01/09/2014 4 - Hives LASIX (FUROSEMIDE) 12/29/2013 2 - Rash PENICILLINS 05/19/2013 9 - Itching 10 - Anaphylaxis RED DYE 01/09/2014 7 - Swelling SULFA (SULFONAMIDE ANTIBIOTICS) 05/19/2013 9 - Itching 10 - Anaphylaxis TAPE (ADHESIVE TAPE (ROSINS)) 01/09/2014 2 - Rash ADHESIVE 03/23/2022 2 - Rash AMOXICILLIN-POT CLAVULANATE 03/14/2016 16 - Unknown CIPROFLOXACIN 12/14/2014 2 - Rash CLINDAMYCIN 03/14/2016 16 - Unknown ERYTHROMYCIN 03/14/2016 16 - Unknown HYDROCODONE 03/14/2016 16 - Unknown IODINATED CONTRAST MEDIA 05/23/2022 2 - Rash LATEX 05/10/2018 2 - Rash LOSARTAN 12/14/2014 2 - Rash 7 - Swelling Mandelamine (METHENAMINE MANDELA*03/14/2016 16 - Unknown METHENAMINE 03/23/2022 14 - Other: See Comments METOPROLOL 05/14/2018 16 - Unknown MINOCYCLINE 03/14/2016 16 - Unknown MOXIFLOXACIN 03/14/2016 16 - Unknown NALDECON 03/14/2016 16 - Unknown NEOMYCIN 03/14/2016 16 - Unknown NITROFURANTOIN 03/14/2016 16 - Unknown PSEUDOEPHEDRINE HCL 03/14/2016 16 - Unknown SHELLFISH CONTAINING PRODUCTS 03/14/2016 16 - Unknown STRAWBERRY 03/14/2016 16 - Unknown SULFAMETHOXAZOLE-TRIMETHOPRIM 03/14/2016 16 - Unknown IODINE 03/23/2022 4 - Hives Date Reviewed: 11/22/2022 Reviewed by: Andria Gaines (Rn), RN - Fully Assessed Reason for Visit: Allied Health Visit [5] Cmt: Medication Adherence Outreach Prescriptions as of 06/21/2023 - chlorthalidone (HYGROTON) 25 mg tablet Take 1 tablet by mouth once daily. - hydrALAZINE (APRESOLINE) 50 mg tablet Take 1 tablet by mouth three times daily. - OZEMPIC 0.25 mg or 0.5 mg(2 mg/1.5 mL) pen INJECT 0.25 MG SUBCUTANEOUSLY EVERY WEEK FOR 4 DOSES - atenolol (TENORMIN) 25 mg tablet Take 1 tablet by mouth once daily - potassium chloride (K-TAB) 10 mEq tablet Take 1 tablet by mouth once daily - MUCINEX 600 mg 12 hr tablet Take 1 tablet by mouth twice daily. - Miscellaneous Medical Supply [employer] In Line Bacterial Filter - fexofenadine (ELIZA ALLERGY) 60 mg tablet Take 1 tablet by mouth once daily. - PEG 400-Propylene Glycol (SYSTANE) 0.4-0.3 % dpet Use in both eyes twice daily as needed. - ZINC ORAL Take by mouth. - cholecalciferol, vitamin D3, (VITAMIN D3 ORAL) Take by mouth. - Magnesium 200 mg tab Take 2 tablets by mouth once daily. Triple magnesium 400 mg - Blood Pressure Monitor (BLOOD PRESSURE KIT) kit 1 Each once daily. - COMPOUNDED PRESCRIPTION bipap machine and all supplies, mask ect Settings 07/13 Problem List As Of Date 06/21/2023 Noted Resolved Sleep apnea [G47.30] 05/20/2013 Edema [R60.9] 12/26/2013 Fibromyalgia [M79.7] Essential hypertension [I10] Morbid obesity due to excess calories (HCC) [E6*10/10/2016 History of colon cancer, stage IV [Z85.038] 10/10/2016 Personal history of allergy to medicinal agent *10/10/2016 Combined forms of age-related cataract of both *05/10/2018 12/16/2019 Vitreous floaters, bilateral [H43.393] 05/10/2018 Punctate keratitis, bilateral [H16.143] 05/10/2018 Obesity, Class III, BMI >= 40 [E66.01] 06/14/2018 Combined forms of age-related cataract of left *07/28/2019 12/16/2019 Regular astigmatism of left eye [H52.222] 07/28/2019 Combined forms of age-related cataract of right*07/28/2019 12/16/2019 Regular astigmatism of right eye [H52.221] 07/28/2019 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 Patient is reviewed 06/21/23 due to medication adherence concerns with the following medications (name, strength, sig): Ozempic 2mg once weekly . Per data/report, last fill date and days supply: Ozempic due 05/14/23 Per reconcile dispense, last fill date and days supply: Ozempic 04/16/23 for 28 ds Per call to pharmacy, last picked up date and days supply: n/a Contacted patient: No answer; left generic VM, MyChart Outcome of review/outreach: (choose outcome source and status) - Called pt LVM, Sent MyChart message to pt concerning Ozempic Carmela Tee Surgery Scheduling Coordinator documented in this encounter [facility] 03-01-2023 Note HNO ID: [id number] Author: Terry Thakur MA Service: ? Author Type: Bulb Tester Type: Progress Notes Filed: 03/01/2023 2:23 PM Note Text: POPULATION HEALTH NAVIGATION OUTREACH Action/FYI March 01, 2023 [place] Care Gaps Care gaps/Scheduling needs Annual Wellness Exam- due on 01/28/2023 Breast Cancer Screening Controlling Blood Pressure Colorectal Cancer Screening Outcome/Action Lm on [facility] letter sent Terry Thakur MA Patient Identified by Name and : NO Outreach Outcome/Action Unable to reach patient: Left message MyChart message sent Did you use a PCP flex slot to schedule this appointment? N/A Reason for Outreach Care Gap or Scheduling/Wellness visits Payer: Payor: [employer] [place] [employer] / Plan: MARK [employer] HMO / Product Type: HMO / Care Gap Reviewed:: Annual Wellness visit Breast Cancer screening Controlling Blood Pressure Colorectal Cancer Screening Reminder: Reminder note to check Health Maintenance for items below Health Maintenance items due: COVID-19 VACCINE(1) Never done SHINGRIX VACCINE(1 of 2) Never done PNEUMOCOCCAL: 65+(1 - PCV) Never done COLORECTAL CANCER SCREENING due on 05/21/2018 MAMMOGRAM due on 05/14/2019 BP CONTROLLED (<130/80) due on 05/18/2022 ADVANCE DIRECTIVE DISCUSSION due on 10/08/2022 DEPRESSION ASSESSMENT Never done ANNUAL PCP TEAM CHRONIC DISEASE VISIT due on 01/10/2023 Navigation Signature: Terry Thakur MA March 01, 2023 2:20 PM [facility] 03-01-2023 Note Patient Outreach (SHAHBAZ TNAV) PERCY WARE ([id number]) 1950 F Date Time Provider Department 03/01/23 TERRY THAKUR During your visit today, we recorded the following information about you: Terry Thakur MA 03/01/2023 2:23 PM Signed POPULATION HEALTH NAVIGATION OUTREACH Action/March 01, 2023 [place] El[place] Care Gaps Care gaps/Scheduling needs Annual Wellness Exam- due on 01/28/2023 Breast Cancer Screening Controlling Blood Pressure Colorectal Cancer Screening Outcome/Action Lm on [facility] letter sent Terry Thakur MA Patient Identified by Name and : NO Outreach Outcome/Action Unable to reach patient: Left message MyChart message sent Did you use a PCP flex slot to schedule this appointment? N/A Reason for Outreach Care Gap or Scheduling/Wellness visits Payer: Payor: MARK [employer] CR[employer] BLUE SHIELD / Plan: [employer] HMO / Product Type: HMO / Care Gap Reviewed:: Annual Wellness visit Breast Cancer screening Controlling Blood Pressure Colorectal Cancer Screening Reminder: Reminder note to check Health Maintenance for items below Health Maintenance items due: COVID-19 VACCINE(1) Never done SHINGRIX VACCINE(1 of 2) Never done PNEUMOCOCCAL: 65+(1 - PCV) Never done COLORECTAL CANCER SCREENING due on 05/21/2018 MAMMOGRAM due on 05/14/2019 BP CONTROLLED (<130/80) due on 05/18/2022 ADVANCE DIRECTIVE DISCUSSION due on 10/08/2022 DEPRESSION ASSESSMENT Never done ANNUAL PCP TEAM CHRONIC DISEASE VISIT due on 01/10/2023 Navigation Signature: Terry Thakur MA March 01, 2023 2:20 PM Allergies As of Date: 03/01/2023 Noted Allergy Reaction IODINE (CONTRAST DYE) 01/09/2014 4 - Hives LASIX (FUROSEMIDE) 12/29/2013 2 - Rash PENICILLINS 05/19/2013 9 - Itching 10 - Anaphylaxis RED DYE 01/09/2014 7 - Swelling SULFA (SULFONAMIDE ANTIBIOTICS) 05/19/2013 9 - Itching 10 - Anaphylaxis TAPE (ADHESIVE TAPE (ROSINS)) 01/09/2014 2 - Rash ADHESIVE 03/23/2022 2 - Rash AMOXICILLIN-POT CLAVULANATE 03/14/2016 16 - Unknown CIPROFLOXACIN 12/14/2014 2 - Rash CLINDAMYCIN 03/14/2016 16 - Unknown ERYTHROMYCIN 03/14/2016 16 - Unknown HYDROCODONE 03/14/2016 16 - Unknown IODINATED CONTRAST MEDIA 05/23/2022 2 - Rash LATEX 05/10/2018 2 - Rash LOSARTAN 12/14/2014 2 - Rash 7 - Swelling Mandelamine (METHENAMINE MANDELA*03/14/2016 16 - Unknown METHENAMINE 03/23/2022 14 - Other: See Comments METOPROLOL 05/14/2018 16 - Unknown MINOCYCLINE 03/14/2016 16 - Unknown MOXIFLOXACIN 03/14/2016 16 - Unknown NALDECON 03/14/2016 16 - Unknown NEOMYCIN 03/14/2016 16 - Unknown NITROFURANTOIN 03/14/2016 16 - Unknown PSEUDOEPHEDRINE HCL 03/14/2016 16 - Unknown SHELLFISH CONTAINING PRODUCTS 03/14/2016 16 - Unknown STRAWBERRY 03/14/2016 16 - Unknown SULFAMETHOXAZOLE-TRIMETHOPRIM 03/14/2016 16 - Unknown IODINE 03/23/2022 4 - Hives Date Reviewed: 11/22/2022 Reviewed by: Andria Gaines - Fully Assessed Reason for Visit: Population Health Navigation Outreach [3910] Cmt: Mark Agrawal Gaps Prescriptions as of 03/01/2023 - hydrALAZINE (APRESOLINE) 50 mg tablet Take 1 tablet by mouth three times daily. - OZEMPIC 0.25 mg or 0.5 mg(2 mg/1.5 mL) pen INJECT 0.25 MG SUBCUTANEOUSLY EVERY WEEK FOR 4 DOSES - atenolol (TENORMIN) 25 mg tablet Take 1 tablet by mouth once daily - chlorthalidone (HYGROTON) 25 mg tablet Take 1 tablet by mouth once daily - potassium chloride (K-TAB) 10 mEq tablet Take 1 tablet by mouth once daily - MUCINEX 600 mg 12 hr tablet Take 1 tablet by mouth twice daily. - Miscellaneous Medical Supply [employer] In Line Bacterial Filter - fexofenadine (ELIZA ALLERGY) 60 mg tablet Take 1 tablet by mouth once daily. - PEG 400-Propylene Glycol (SYSTANE) 0.4-0.3 % dpet Use in both eyes twice daily as needed. - ZINC ORAL Take by mouth. - cholecalciferol, vitamin D3, (VITAMIN D3 ORAL) Take by mouth. - Magnesium 200 mg tab Take 2 tablets by mouth once daily. Triple magnesium 400 mg - Blood Pressure Monitor (BLOOD PRESSURE KIT) kit 1 Each once daily. 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 [facility] 02-20-2023 Note HNO ID: [id number] Author: Audelia Hdz Service: ? Author Type: ? Type: Progress Notes Filed: 02/20/2023 3:18 PM Note Text: Opened in error. [facility] 02-20-2023 History of Present illness Narrative Opened in error. documented in this encounter [facility] 02-20-2023 Note Patient Outreach (AG ACM) PERCY WARE ([id number]) 1950 F Date Time Provider Department 02/20/23 SNOW NAVARRO During your visit today, we recorded the following information about you: Snow Navarro, RN 02/20/2023 11:18 AM Signed POPULATION HEALTH NAVIGATION OUTREACH Action/FYI Patient still attributed to Dr. Rajendra Puente. [place] attribution review Patient Identified by Name and : YES, chart review Outreach Outcome/Action Did you use a PCP flex slot to schedule this appointment? N/A Reason for Outreach Attribution: Provider Off-boarding Payer: Payor: MARK [employer] BLUE [employer]IELD / Plan: MARK [employer] HMO / Product Type: HMO / Care Gap Reviewed:: N/A Reminder: Reminder note to check Health Maintenance for items below Health Maintenance items due: COVID-19 VACCINE(1) Never done SHINGRIX VACCINE(1 of 2) Never done PNEUMOCOCCAL: 65+(1 - PCV) Never done COLORECTAL CANCER SCREENING due on 05/21/2018 MAMMOGRAM due on 05/14/2019 BP CONTROLLED (<130/80) due on 05/18/2022 ADVANCE DIRECTIVE DISCUSSION due on 10/08/2022 DEPRESSION ASSESSMENT Never done ANNUAL PCP TEAM CHRONIC DISEASE VISIT due on 01/10/2023 Navigation Signature: Snow Navarro RN February 20, 2023 11:16 AM Allergies As of Date: 02/20/2023 Noted Allergy Reaction IODINE (CONTRAST DYE) 01/09/2014 4 - Hives LASIX (FUROSEMIDE) 12/29/2013 2 - Rash PENICILLINS 05/19/2013 9 - Itching 10 - Anaphylaxis RED DYE 01/09/2014 7 - Swelling SULFA (SULFONAMIDE ANTIBIOTICS) 05/19/2013 9 - Itching 10 - Anaphylaxis TAPE (ADHESIVE TAPE (ROSINS)) 01/09/2014 2 - Rash ADHESIVE 03/23/2022 2 - Rash AMOXICILLIN-POT CLAVULANATE 03/14/2016 16 - Unknown CIPROFLOXACIN 12/14/2014 2 - Rash CLINDAMYCIN 03/14/2016 16 - Unknown ERYTHROMYCIN 03/14/2016 16 - Unknown HYDROCODONE 03/14/2016 16 - Unknown IODINATED CONTRAST MEDIA 05/23/2022 2 - Rash LATEX 05/10/2018 2 - Rash LOSARTAN 12/14/2014 2 - Rash 7 - Swelling Mandelamine (METHENAMINE MANDELA*03/14/2016 16 - Unknown METHENAMINE 03/23/2022 14 - Other: See Comments METOPROLOL 05/14/2018 16 - Unknown MINOCYCLINE 03/14/2016 16 - Unknown MOXIFLOXACIN 03/14/2016 16 - Unknown NALDECON 03/14/2016 16 - Unknown NEOMYCIN 03/14/2016 16 - Unknown NITROFURANTOIN 03/14/2016 16 - Unknown PSEUDOEPHEDRINE HCL 03/14/2016 16 - Unknown SHELLFISH CONTAINING PRODUCTS 03/14/2016 16 - Unknown STRAWBERRY 03/14/2016 16 - Unknown SULFAMETHOXAZOLE-TRIMETHOPRIM 03/14/2016 16 - Unknown IODINE 03/23/2022 4 - Hives Date Reviewed: 11/22/2022 Reviewed by: Andria Gaines - Fully Assessed Reason for Visit: Population Health Navigation Outreach [3910] Cmt: Attribution Prescriptions as of 02/20/2023 - hydrALAZINE (APRESOLINE) 50 mg tablet Take 1 tablet by mouth three times daily. - OZEMPIC 0.25 mg or 0.5 mg(2 mg/1.5 mL) pen INJECT 0.25 MG SUBCUTANEOUSLY EVERY WEEK FOR 4 DOSES - atenolol (TENORMIN) 25 mg tablet Take 1 tablet by mouth once daily - chlorthalidone (HYGROTON) 25 mg tablet Take 1 tablet by mouth once daily - potassium chloride (K-TAB) 10 mEq tablet Take 1 tablet by mouth once daily - MUCINEX 600 mg 12 hr tablet Take 1 tablet by mouth twice daily. - Miscellaneous Medical Supply [employer] In Line Bacterial Filter - fexofenadine (ELIZA ALLERGY) 60 mg tablet Take 1 tablet by mouth once daily. - PEG 400-Propylene Glycol (SYSTANE) 0.4-0.3 % dpet Use in both eyes twice daily as needed. - ZINC ORAL Take by mouth. - cholecalciferol, vitamin D3, (VITAMIN D3 ORAL) Take by mouth. - Magnesium 200 mg tab Take 2 tablets by mouth once daily. Triple magnesium 400 mg - Blood Pressure Monitor (BLOOD PRESSURE KIT) kit 1 Each once daily. - COMPOUNDED PRESCRIPTION bipap machine and all supplies, mask ect Settings 07/13 Problem List As Of Date 02/20/2023 Noted Resolved Sleep apnea [G47.30] 05/20/2013 Edema [R60.9] 12/26/2013 Fibromyalgia [M79.7] Essential hypertension [I10] Morbid obesity due to excess calories (HCC) [E6*10/10/2016 History of colon cancer, stage IV [Z85.038] 10/10/2016 Personal history of allergy to medicinal agent *10/10/2016 Combined forms of age-related cataract of both *05/10/2018 12/16/2019 Vitreous floaters, bilateral [H43.393] 05/10/2018 Punctate keratitis, bilateral [H16.143] 05/10/2018 Obesity, Class III, BMI >= 40 [E66.01] 06/14/2018 Combined forms of age-related cataract of left *07/28/2019 12/16/2019 Regular astigmatism of left eye [H52.222] 07/28/2019 Combined forms of age-related cataract of right*07/28/2019 12/16/2019 Regular astigmatism of right eye [H52.221] 07/28/2019 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 [facility] 02-20-2023 Note HNO ID: [id number] Author: Snow Navarro RN Service: ? Author Type: Registered Nurse Type: Progress Notes Filed: 02/20/2023 11:18 AM Note Text: POPULATION HEALTH NAVIGATION OUTREACH Action/I Patient still attributed to Dr. Rajendra Puente. [place] attribution review Patient Identified by Name and : YES, chart review Outreach Outcome/Action Did you use a PCP flex slot to schedule this appointment? N/A Reason for Outreach Attribution: Provider Off-boarding Payer: Payor: [employer] / Plan: [employer] HMO / Product Type: HMO / Care Gap Reviewed:: N/A Reminder: Reminder note to check Health Maintenance for items below Health Maintenance items due: COVID-19 VACCINE(1) Never done SHINGRIX VACCINE(1 of 2) Never done PNEUMOCOCCAL: 65+(1 - PCV) Never done COLORECTAL CANCER SCREENING due on 05/21/2018 MAMMOGRAM due on 05/14/2019 BP CONTROLLED (<130/80) due on 05/18/2022 ADVANCE DIRECTIVE DISCUSSION due on 10/08/2022 DEPRESSION ASSESSMENT Never done ANNUAL PCP TEAM CHRONIC DISEASE VISIT due on 01/10/2023 Navigation Signature: Snow Navarro RN February 20, 2023 11:[address] [facility] 12-22-2022 Miscellaneous Notes Patient has been identified by name and date of : Yes Requested Prescriptions Pending Prescriptions Disp Refills hydrALAZINE (APRESOLINE) 50 mg tablet 270 tablet 1 Sig: Take 1 tablet by mouth three times daily. RX INSTRUCTIONS: Patient aware RX will be sent to pharmacy. No need to notify patient. Lay Estrella documented in this encounter [facility] 12-01-2022 History of Present illness Narrative Percy Ware is identified through a medication adherence outreach initiative based on pharmacy claims data from Medicare (insurer) for Non-insulin DM medication(s). Patient is reviewed 12/01/22 due to medication adherence concerns with the following medications (name, strength, sig): Ozempic 0.25mg SQ once weekly Per reconcile dispense, last fill date and days supply: 11/23/22 28DS Any need for new prescription (I.e. out of refills on most recent prescription) YES/NO/Active: no Outcome of review/outreach: (choose outcome source and status) - Filled before Next fill date per reconcile dispense Jadon Pollard The patient's case was discussed with the student who saw the patient with me. Kerr elements of history confirmed during visit. Agree with findings and plan as outlined by the student. My additions to the note are underlined. Jose Armando Briscoe, PharmD, MEd, BCPS, CDCES documented in this encounter [facility] 11-07-2022 History of Present illness Narrative Assessment and Plan 1. Dry eye syndrome of both eyes -with fluctuating vision with prolonged computer use 2. Pseudophakia of both eyes 3. Right posterior capsular opacification -improved vision post YAG capsulotomy right eye (mini-monovision eye) 4. 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 Has been seen by Dr. Barnes --> observation Plan: -Retina precautions reviewed. Return to clinic as soon as possible if increased floaters, flashes, or shadows. -preservative-free artificial tears three times a day both eyes -artificial tears ointment at bedtime both eyes (blurs her vision in the morning - will try more tears) -return to clinic [address] Gordon for refraction and continued monitoring / me as needed. To consider restasis in the future? I have confirmed and edited as necessary the relevant ophthalmic history, ROS, and the neuro exam findings as obtained by others. I have seen and examined Percy Ware. I have discussed the case and the management of this patient's care with the Resident/Fellow, if applicable. I also have reviewed and agree with the assessment and plan as stated above and agree with all of its relevant components. Santos Hugo MD documented in this encounter [facility] 09-22-2022 Miscellaneous Notes Completed appt: 05/29/2022 Upcoming appt: 05/28/2023 Patient has been identified by name and date of : Yes Requested Prescriptions Pending Prescriptions Disp Refills atenolol (TENORMIN) 25 mg tablet [Pharmacy Med Name: Atenolol 25 MG Oral Tablet] 90 tablet 3 Sig: Take 1 tablet by mouth once daily RX INSTRUCTIONS: Pharmacy initiated this request. No need to notify patient. Nya Hampton Please review and advise. documented in this encounter [facility] 07-07-2022 Miscellaneous Notes Completed appt: 05/29/2022 Upcoming appt: 05/28/2023 Please review and advise. Patient has been identified by name and date of : Yes Requested Prescriptions Pending Prescriptions Disp Refills chlorthalidone (HYGROTON) 25 mg tablet [Pharmacy Med Name: Chlorthalidone 25 MG Oral Tablet] 90 tablet 3 Sig: Take 1 tablet by mouth once daily RX INSTRUCTIONS: Patient aware RX will be sent to pharmacy. No need to notify patient. Akosua Mayfield RN documented in this encounter [facility] 06-27-2022 History of Present illness Narrative POPULATION HEALTH NAVIGATION OUTREACH Action/FYI P/C to patient to address open care gaps, no answer. Left message for patient to return call. My Chart message sent. Pt identified by name and : NO Outreach Outcome/Action Unable to reach patient: Left message MyChart message sent Did you use a PCP flex slot to schedule this appointment? N/A Reason for Outreach Care Gap or Scheduling/Wellness visits Payer: Payor: MARK [employer] AND [employer]IELD / Plan: [employer] HMO / Product Type: HMO / Care Gap Reviewed:: Annual Wellness visit Breast Cancer screening Colorectal Cancer Screening Flu vaccine Reminder: Reminder note to check Health Maintenance for items below Health Maintenance items due: COVID-19 VACCINE(1) Never done SHINGRIX VACCINE(1 of 2) Never done PNEUMOCOCCAL: 65+(1 - PCV) Never done COLORECTAL CANCER SCREENING due on 05/21/2018 MAMMOGRAM due on 05/14/2019 BP CONTROLLED (<130/80) due on 05/18/2022 DEPRESSION SCREENING due on 05/18/2022 INFLUENZA(1) due on 06/08/2022 Message Sent to Practice: No Navigation Signature: Imani Harris MA June 27, 2022 1:28 PM documented in this encounter [facility] 06-16-2022 Miscellaneous Notes Completed appt: 05/29/2022 Upcoming appt: 05/28/2023 Please review and advise. Patient has been identified by name and date of : Yes Requested Prescriptions Pending Prescriptions Disp Refills potassium chloride (K-TAB) 10 mEq tablet [Pharmacy Med Name: POT CHLORIDE [id number]] 90 tablet 3 Sig: Take 1 tablet by mouth once daily RX INSTRUCTIONS: Patient aware RX will be sent to pharmacy. No need to notify patient. Akosua Mayfield RN documented in this encounter [facility] 06-14-2022 Miscellaneous Notes Completed appt: 05/29/2022 Upcoming appt: 05/28/2023 Patient has been identified by name and date of : Yes Requested Prescriptions Pending Prescriptions Disp Refills hydrALAZINE (APRESOLINE) 50 mg tablet [Pharmacy Med Name: hydrALAZINE HCl 50 MG Oral Tablet] 270 tablet 0 Sig: TAKE 1 TABLET BY MOUTH THREE TIMES DAILY RX INSTRUCTIONS: Pharmacy initiated this request. No need to notify patient. Nya Mccarthy Berta Please review and advise. KENIA: HTN: - 132/84 in office today controlled with hydralazine 50 mg once daily (pt taking this dose on her own) and chlorthalidone 25 mg one time a day. If BP is uncontrolled will increase hydralazine to 50mg two to three times daily. - atenolol 25 mg once daily to decrease blood pressure and heart rate. documented in this encounter [facility] 06-07-2022 Miscellaneous Notes Carotid Doppler study showed mild atherosclerotic plaque but no significant blockage. Continue medical therapy and risk factor modification documented in this encounter [facility] 05-29-2022 Instructions Kristin Mariee MD - 05/29/2022 2:00 PM EDT A Healthy Lifestyle: It s also a good idea to keep and bring a list of the medicines you take to your appointments. Continue taking your prescribed Medications faithfully. Always bring an updated list of your medications to every visit. We will contact you if there are any significant abnormalities about your test results or any medications need to be changed. If the results of the tests are normal, then you may not hear from my office. However, feel free to call office if you would still like to know the test results, one week after the test was performed. A healthy lifestyle can help you feel good, stay at a healthy weight, and have plenty of energy for both work and play. A healthy lifestyle is something you can share with your whole family. A healthy lifestyle also can lower your risk for high blood pressure, heart disease, and diabetes. Reaching goal weight and blood pressure will decrease your risk of heart attack and stroke. You can follow a few steps listed below to improve your health and the health of your family. Do not eat too much sugar, fat, or fast foods. You can still have dessert and treats now and then. The goal is moderation. Recommended eating low salt, low fat diet with little red meat and more chicken and fish. Avoid refined sugar / carbohydrates and consume whole wheat bread and brown rice. Look at the food labels especially the calories and sodium content. Consume less than 2000 mg of sodium a day and less than 300 mg per serving size. Eat low fat yogurt and drink low fat milk. Avoid excess intake of alcohol, caffeine, canned soups, highly processed foods, chips and fast food. Start small to improve your eating habits. Pay attention to portion sizes, Avoid fruit juice and soda pop, and eat more fruits and vegetables. Eat a healthy amount of food. A 3-ounce serving of meat, for example, is about the size of a deck of cards. Fill the rest of your plate with vegetables and whole grains. Limit the amount of soda and sports drinks you have every day. Drink only water when you are thirsty. Eat at least 5 servings of fruits and vegetables every day. It may seem like a lot, but it is not hard to reach this goal. A serving or helping is 1 piece of fruit, 1 cup of vegetables, or 2 cups of leafy, raw vegetables. Have an apple or some carrot sticks as an afternoon snack instead of a candy bar. Try to have fruits and/or vegetables at every meal. Make walking or exercise part of your daily routine. You may want to start with simple activities, such as walking, bicycling, or slow swimming. Try to be active 30 to 60 minutes every day. You do not need to do all 30 minutes all at once. For example, you can exercise 3 times a day for 10 or 20 minutes. Moderate exercise is safe for most people, but it is always a good idea to talk to your doctor before starting an exercise program. Keep moving. Mow the lawn, work in the garden, or clean your house. Take the stairs instead of the elevator at work. Eliminate or limit how much alcohol you drink. Daily drinking can lead to liver problems, high blood pressure, irregular heart rhythm and other health problems. Summary: Increase your intake of high fiber foods: beans, lentils, steel cut oats, brown rice, quinoa, and lots of vegetables! Stick to lower glycemic fruits like blueberries, raspberries, strawberries. Try to reduce intake of higher glycemic fruits like: bananas, pineapple, papaya, melon. Vegetables: all vegetables are fair game! (sweet potato instead of white potato) Reduce consumption of refined carbohydrates: instant foods; waffles, [place], toast, pasta, sweetened breakfast cereal, white bread, bagels, biscuits, pastries, white pasta, white rice, cakes, donuts, muffins, croutons, crackers, chips, pizza crust, rice cakes, pretzels. Bread options: 100% Whole Grain (Ezekial Bread is a good option). Pasta options: lentil or mireles pastas Araceli your drinks with Truvia if needed. Avoid fruit juice, sodas and any drinks with added sugar. Avoid foods and snacks high in sugar: White sugar (cane sugar), brown sugar, coconut sugar, maple syrup, honey, agave nectar, corn syrup, flavored yogurt, sweets and desserts, candy, soda, fruit juice, sports drinks, ketchup, salad dressings, jelly, jam.Healthy snack ideas: plain popcorn, nuts & seeds, veggies dipped in hummus Stop Eating after 7 pm Limit sitting to 7 hours per day. documented in this encounter [facility] 05-29-2022 History of Present illness Narrative Images from the original note were not included. [facility] [place] [facility] Department of Cardiovascular Medicine SECTION OF REGIONAL CARDIOLOGY [facility] 05/29/2022 OUTPATIENT VISIT TYPE Established F/Up regarding Hypertension and ARTURO. Last visit 06/21/21 HISTORY OF PRESENT ILLNESS: Ms. 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 used homeopathic medications) in 1993 as she has at least 23 medical drug allergies noted in the chart and has occasional SOB and palpitations. Her blood pressure at home is between 135-140 mmHg while she is taking chlorthalidone 25 mg daily and hydralazine 50 mg 2 times a day. She is here today for HTN and ARTURO management. Patient states that last week she had a headache and elevated BP in the 140 systolic range and it remained that way for three days and took an extra dose of hydralazine and then resolved. Patient has no symptoms of chest pain. Patient has mild exertional shortness of breath. Dizziness - No Palpitations - No Leg edema - yes, but patient states it is improving as he is using a pump which was given to her by physical therapy for the leg swelling. Fatigue - No Snoring - sleep apnea - Yes, she claims to use BiPAP mask regularly at night. Patient drinks 1 - 2 cups of tea or caffeine containing beverages per day Patient does not smoke tobacco products. Patient drinks socially / uses small amount of alcohol periodically Patient denies recreational drug use / abuse. Social History Tobacco Use Smoking status: Never Smokeless tobacco: Never Vaping Use Vaping Use: Never used Substance Use Topics Alcohol use: No Drug use: No FAMILY HISTORY Problem Relation Age of Onset Diabetes Father Hypertension Father No Ocular Disease No Family History Cataract No Family History Glaucoma No Family History Detached Retina No Family History REVIEW OF SYSTEMS: SYSTEMIC: No fever, chills, or change in weight or appetite HEENT: No recent change in vision or hearing. Respiratory: No hemoptysis, cough. CARDIOVASCULAR: See HPI. GI: No recent nausea, vomiting or diarrhea. : No recent hematuria or dysuria. SKIN: No recent itching or eruption. PSYCH: No recent active anxiety or depression. HEMATOLOGY/ONCOLOGY: No recent diagnosis of bleeding or cancer. ENDOCRINE: No recent polyuria or heat intolerance. NEURO: No recent TIA, stroke or seizures. RHEUMATOLOGY: No recent active connective tissue disease. Rest of the review of system is unremarkable. PAST MEDICAL HISTORY Diagnosis Date Cancer (HCC) lung and liver Colon cancer (HCC) Fibromyalgia Hypertension Stroke (HCC) PAST SURGICAL HISTORY Procedure Laterality Date COLON SURGERY HX COLONOSCOPY FLX DX W/COLLJ SPEC WHEN PFRMD 2009 Colonoscopy HYSTERECTOMY HX KNEE SURGERY HX Left 2009 XCAPSL CTRC RMVL INSJ IO LENS PROSTH W/O ECP Left 08/06/2019 Cataract Extraction with PC IOL / LRI XCAPSL CTRC RMVL INSJ IO LENS PROSTH W/O ECP Right 12/11/2019 Cataract Extraction with PC (TORIC) IOL ALLERGIES Allergen Reactions Iodine [Contrast Dy* Hives Lasix [Furosemide] Rash Penicillins Itching, Anaphylaxis Red Dye Swelling Sulfa (Sulfonamide * Itching, Anaphylaxis Tape [Adhesive Tape* Rash Amoxicillin-Pot Cla* Unknown Ciprofloxacin Rash Clindamycin Unknown Erythromycin Unknown Hydrocodone Unknown Latex Rash Losartan Rash, Swelling Mandelamine [Methe* Unknown Metoprolol Unknown Minocycline Unknown Moxifloxacin Unknown Naldecon Unknown Neomycin Unknown Nitrofurantoin Unknown Pseudoephedrine Hcl Unknown Shellfish Containin* Unknown [place] Unknown Sulfamethoxazole-Tr* Unknown CURRENT MEDICATIONS: atenolol (TENORMIN) 25 mg tablet Take 1 tablet by mouth once daily. MUCINEX 600 mg 12 hr tablet Take 1 tablet by mouth twice daily. Miscellaneous Medical [employer] In Line Bacterial Filter fexofenadine (ELIZA ALLERGY) 60 mg tablet Take 1 tablet by mouth once daily. potassium chloride (K-TAB) 10 mEq tablet Take 1 tablet by mouth once daily. chlorthalidone (HYGROTON) 25 mg tablet Take 1 tablet by mouth once daily. PEG 400-Propylene Glycol (SYSTANE) 0.4-0.3 % dpet Use in both eyes twice daily as needed. ZINC ORAL Take by mouth. cholecalciferol, vitamin D3, (VITAMIN D3 ORAL) Take by mouth. Magnesium 200 mg tab Take 2 tablets by mouth once daily. Triple magnesium 400 mg Blood Pressure Monitor (BLOOD PRESSURE KIT) kit 1 Each once daily. ASPIRIN ORAL Take 325 mg by mouth once daily. COMPOUNDED PRESCRIPTION bipap machine and all supplies, mask ect Settings 07/13 hydrALAZINE (APRESOLINE) 50 mg tablet Take 1 tablet by mouth three times daily. (Patient taking differently: Take 50 mg by mouth once daily. ) PHYSICAL EXAM: BP 132/84 Pulse 74 Ht 157.5 cm (5' 2 ) Wt (!) 148.3 kg (327 lb) BMI 59.81 kg/m Last 2 Encounter Wt Readings: Date: Wt: 05/21/2019 113 kg (249 lb 1.6 oz) 06/14/2018 150.1 kg (331 lb) Awake, alert, oriented times 3. Patient is not in acute respiratory distress. SKIN: No petechial rash or ecchymosis noted. Head : Normocephalic. face symmetrical NECK: Supple. No JVD. Mild carotid bruit. No thyromegaly. ENT: Pharyngeal structures are crowded and uvula is not visualized. Mallampati 4 LUNGS: Clear to auscultation bilaterally. CARDIAC: Normal S1 and S2, no systolic murmur. ABDOMEN: Soft, nontender, bowel sounds present. EXTREMITIES: No cyanosis, clubbing, lymphedema is noted on legs sparing the feet. PULSES: Peripheral pulses are 2+ palpable in DP and PT arteries. NEURO: Non-focal. Moves all extremities. Musculoskeletal: No significant deformities. Last Labs: Sodium Date Value Ref Range Status 12/05/2021 141 136 - 144 mmol/L Final Potassium Date Value Ref Range Status 12/05/2021 3.9 3.7 - 5.1 mmol/L Final Chloride Date Value Ref Range Status 12/05/2021 103 97 - 105 mmol/L Final CO2 Date Value Ref Range Status 12/05/2021 24 22 - 30 mmol/L Final Glucose Date Value Ref Range Status 12/05/2021 133 (H) 74 - 99 mg/dL Final Comment: The [place] [employer] (ADA) provides guidance for cutoff values for fasting glucose and random glucose. The ADA defines fasting as no caloric intake for at least 8 hours. Fasting plasma glucose results between 100 to 125 mg/dL indicate increased risk for diabetes (prediabetes). Fasting plasma glucose results greater than or equal to 126 mg/dL meet the criteria for diagnosis of diabetes. In the absence of unequivocal hyperglycemia, results should be confirmed by repeat testing. In a patient with classic symptoms of hyperglycemia or hyperglycemic crisis, random plasma glucose results greater than or equal to 200 mg/dL meet the criteria for diagnosis of diabetes. Reference: Standards of Medical Care in Diabetes 2016, [place] [employer]. Diabetes Care. 2016.39(Suppl 1). BUN Date Value Ref Range Status 12/05/2021 15 7 - 21 mg/dL Final Creatinine Date Value Ref Range Status 12/05/2021 1.10 (H) 0.58 - 0.96 mg/dL Final Calcium, Total Date Value Ref Range Status 12/05/2021 9.5 8.5 - 10.2 mg/dL Final Albumin Date Value Ref Range Status 12/05/2021 4.1 3.9 - 4.9 g/dL Final Protein, Total Date Value Ref Range Status 12/05/2021 7.7 6.3 - 8.0 g/dL Final AST Date Value Ref Range Status 12/05/2021 18 13 - 35 U/L Final ALT Date Value Ref Range Status 12/05/2021 15 7 - 38 U/L Final Alkaline Phosphatase Date Value Ref Range Status 12/05/2021 94 34 - 123 U/L Final Bilirubin, Total Date Value Ref Range Status 12/05/2021 1.3 0.2 - 1.3 mg/dL Final Triglyceride Date Value Ref Range Status 05/29/2019 77 0 - 149 mg/dL Final Cholesterol, Total Date Value Ref Range Status 05/29/2019 153 0 - 199 mg/dL Final HDL Cholesterol Date Value Ref Range Status 05/29/2019 58 >40 mg/dL Final LDL Date Value Ref Range Status 05/29/2019 80 0 - 150 mg/dL Final Cardiovascular Testing: Sleep study done in 2012: showed obstructive sleep apnea of severe nature which needed CPAP SPECT FINDINGS: Jan 14 2014 The overall quality of the study is fair. There is moderate breast attenuation artifact noted. The right and left ventricles are normal in size. Stress and rest SPECT images show no evidence of infarction or ischemia. Tracer uptake is otherwise homogeneous throughout the left ventricular myocardium on both the stress and rest images. Gated post-stress SPECT imaging shows normal myocardial thickening with a global ejection fraction of 63% and normal regional wall motion. IMPRESSION: 1. NO SCINTIGRAPHIC EVIDENCE OF ISCHEMIA OR INFARCTION. 2. NORMAL GLOBAL AND REGIONAL LEFT VENTRICULAR FUNCTION. Transcribe by MUKUL WOO. Echo 06/04/19: Echo exam indication: HTN - The left ventricle is normal in size. There is mild concentric left ventricular hypertrophy. Left ventricular systolic function is normal. EF = 64 5% (2D biplane) Grade I left ventricular diastolic dysfunction. - The right ventricle is normal in size. Right ventricular systolic function is normal. . EKG 06/21/21: NSR with incomplete RBBB and right axis deviation EKG 05/29/22: NSR with incomplete RBBB- and right axis deviation with possible left atrial enlargement IMPRESSION / RECOMMENDATIONS / PLAN: Encounter Diagnosis ICD-10-CM 1. Essential hypertension I10 2. Sleep apnea, unspecified type G47.30 3. Lymphedema praecox I89.0 4. Obesity, Class III, BMI >= 40 E66.01 HTN: - 132/84 in office today controlled with hydralazine 50 mg once daily (pt taking this dose on her own) and chlorthalidone 25 mg one time a day. If BP is uncontrolled will increase hydralazine to 50mg two to three times daily. - atenolol 25 mg once daily to decrease blood pressure and heart rate. ARTURO on BiPAP mask: I advised her to use her BiPAP mask every night properly for 6-8 hours so that it would help controlling her blood pressures. Weight loss with calorie restriction was emphasized and a director life insurance was recommenced but the patient declined for now due to feeling fatigued from previous COVID illness. Salt and caffeine restriction was also emphasized. Discussed US of Carotids for stroke screening and it was ordered. Patient is counseled and educated about the symptoms and treatment plan. Follow up in 12 months. Kristin Mariee MD [facility] Staff Lumber Inspector. Clinical Asst. spray rig operator. [facility]. [facility] Department of Cardiovascular Medicine. By signing my name below, I, Mary Turner, acting as a scribe attest that this documentation has been prepared under the direction and in the presence of Dr. Mariee Electronically signed, Mary Turner, Medical Student May 29, 2022 1:45 PM documented in this encounter [facility] 05-19-2022 History of Present illness Narrative Episode Visit Count: 26 Therapist That Will Oversee The Plan Of Care: Viri Farr Start of Care Date: 01/18/22 Onset Date: 09/07/21 Patient Identified by Name and Date of : Yes REHABILITATION AND SPORTS THERAPY PHYSICAL THERAPY PROGRESS REPORT PLAN OF CARE UPDATE: Assessment: Percy Ware demonstrates significant improvement in walking, walking in the house, physical activities, and sleeping . She hasmet majority of her goals. Patient continues to present with impairments in edema management and community distance ambulation that interfere with walking in the community . Current prognosis is Good due to: current objective clinical presentation;positive past response to therapy;good support system/ coping skills . She will benefit from continued skilled therapy services to meet the updated goals for this plan of care as noted below. Goals for Episode of Care: created on 01/18/22 through 03/18/22 Goals updated on 05/19/2022. Patient / family knowledgeable re: all pertinent aspects of CDT (Met) Patient / family independent with donning / doffing compression garment and proper wearing schedule and care of garment (Partially Met)-Pt is currently independent with compression leggings, but has not obtained custom, graduated compression garments yet. Patient / family independent with home exercise program (Met) Patient will decrease circumferential measurements by 10-30% in the following areas: B LE for decreased recurrence of infection, improved mobility, improved range of motion and allow appropriate fit in compressive garment. (Met) Pt will demonstrate improved soft tissue condition with no fibrosis throughout B LE. (Met) Pt will obtain appropriate compression garments to assist in effective self-management of LE lymphedema. (Partially Met)-Pt has compression stockings, but has not tried to wear them since achieving volume reduction. Patient Goals: To reduce the swelling in the legs and be able to get around better. To get back on the eliptical again. (Partially Met)- Met except for has not tried using the eliptical machine again. Planned Interventions, Frequency, and Duration: 1 visit, 4 weeks Total Number of Visits Planned: 1 Patient to be seen for Therapeutic exercise (43241);Manual therapy (62332);Self-retirement management ([id number]);Patient/Family/Caregiver Education PLAN FOR NEXT VISIT: Pt will continue independently with her HEP, compression garments (leggings) and use of pneumatic compression pump. She has a follow up with referring physician and may schedule follow up with therapy to assess effectiveness of independent self-management. SUBJECTIVE: Patient Reason for Visit: Pt states she feels her legs are doing well and is using the compression pumps twice a day. She states she did have a day that she was in the office for 5 hours straight and this was too much for her legs to be in dependent position. She notes she felt they were more full and swollen after this. She is still only using the cane intermittently at home and is walking more independently without assistive device. Functional Limitations: walking in the community Pain: Pain Pain Level: 0 Pain Location: Knee - Right;Knee - Left Post Treatment Pain Post Treatment Pain Level: 0 PROMIS Scales Higher is Better 04/18/2022 Phys Func - Score 30 (moderate dysfunction) Phys Func - Percentile 2 % Social Roles - Score 31 (moderate dysfunction) Social Role - Percentile 3 % GH Physical - Score 42.3 (Good) GH Physical - Percentile 22 % GH Mental - Score 53.3 (Very Good) GH Mental - Percentile 63 % Self-Eff Symptom - Score 47 (Average) Self-Eff Symptom - Percentile 38 % T-scores: mean of general population = 50. 5 points is clinically meaningfully difference Percentiles provide an indication of how the patient's score ranks in relation to the general population. Higher percentile rankings indicate better function/quality of life. 50th percentile is the average of the general population and indicates half of respondents had a worse score. Lower is Better 04/18/2022 Fatigue - Score 45 (within normal limits) Fatigue - Percentile 69 % T-scores: mean of general population = 50. 5 points is clinically meaningfully difference Percentiles provide an indication of how the patient's score ranks in relation to the general population. Higher percentile rankings indicate better function/quality of life. 50th percentile is the average of the general population and indicates half of respondents had a worse score. OBJECTIVE MEASURES WITH LEVEL OF FUNCTION: Lymphedema Fibrosis Comments:: B LE soft tissue is loosening and more malleable throughout. No firmness, fibrosis or pitting. Lower Extremity Circumferential Measurements R 1st toe (proximal phalanx): 9.5 R Metatarsal Phalangeal (MTP): 25.5 R Arch: 26 R 5 cm from floor: 35 cm R 10 cm from floor: 40 cm R 15 cm from floor: 49 cm R 20 cm from floor: 53 cm R 25 cm from floor: 55 cm R 30 cm from floor: 63.5 cm R 35 cm from floor: 66.5 cm R 40 cm from floor: 75 cm (knee) R 45 cm from floor: 75 cm R 50 cm from floor: 83.5 cm R 55 cm from floor: 85 cm L 1st toe (proximal phalanx): 10 L Metatarsal Phalangeal (MTP): 24.5 L Arch: 26 L 5 cm from floor: 35.5 cm L 10 cm from floor: 40.5 cm L 15 cm from floor: 49.5 cm L 20 cm from floor: 56 cm L 25 cm from floor: 61.5 cm L 30 cm from floor: 66 cm L 35 cm from floor: 73 cm L 40 cm from floor: 74.5 cm (knee) L 45 cm from floor: 81.5 cm L 50 cm from floor: 82.5 cm L 55 cm from floor: 83 cm Affected Leg: Bilateral, Left Leg Larger Calculate Volume : Yes R Lower Extremity Volume: 99264 L Lower Extremity Volume: 48009 Difference in Volume: 1210 Difference in % : 7.47 Gait Gait Observation: Pt ambulates independnetly with or without her straight cane demonstrating normal kerrie, mild lateral trunk deviation and improved heel strike and push off. (If longer than household distances, uses cane.) TREATMENT: Skilled Intervention: Manual Therapy: 1: MLD B LE utilizing B inguinoaxillary anastamoses and stationary circles, pump and rotary strokes. Skilled Intervention: Manual skills to improve joint mobility, ROM, and decrease pain. Utilized anatomy knowledge of the therapist, and assessment of patient's response to intervention. Manual techniques to facilitate lymphatic dynamics and improve condition of tissue. Additional time necessary for objective measurements and reassessment due to progress update. Billing KX Modifier : Therapist attests that services rendered are medically necessary. Manual TherapyTreatment Minutes: 60 Total Treatment Time Minutes (timed/untimed): 60 Viri Farr PT documented in this encounter [facility] 05-15-2022 History of Present illness Narrative Episode Visit Count: 25 Therapist That Will Oversee The Plan Of Care: Viri Farr Start of Care Date: 01/18/22 Onset Date: 09/07/21 Patient Identified by Name and Date of : Yes REHABILITATION AND SPORTS THERAPY PHYSICAL THERAPY TREATMENT NOTE ASSESSMENT: Percy Ware tolerated the session with no issues. She demonstrated improvements in soft tissue condition and gait. The patient will continue to benefit from ongoing skilled physical therapy for reassessment by supervising therapist. PLAN FOR NEXT VISIT: POC update. SUBJECTIVE: Patient Reason for Visit: Pt reports receiving her compression pump on Sunday and has used it at home. She notes she has to urinate right away afterwards. She noted her shoes and pants felt looser since having used a few times as well. Pain: Pain Pain Level: 0 Pain Location: Knee - Right;Knee - Left Post Treatment Pain Post Treatment Pain Level: 0 OBJECTIVE MEASURES WITH LEVEL OF FUNCTION: Lymphedema Fibrosis Comments:: Tissue demosntrates improved softness and malleability today. Gait Gait Observation: Pt ambulates independently with her straight cane, though minimal support through cane, demosntrating increased kerrie and decreased lateral trunk deviation. TREATMENT: Manual Therapy: 1: MLD B LE utilizing B inguinoaxillary anastamoses and stationary circles, pump and rotary strokes. Skilled Intervention: Manual skills to improve joint mobility, ROM, and decrease pain. Utilized anatomy knowledge of the therapist, and assessment of patient's response to intervention. Manual techniques to facilitate lymphatic dynamics and improve condition of tissue. Billing KX Modifier : Therapist attests that services rendered are medically necessary. Manual TherapyTreatment Minutes: 43 Total Treatment Time Minutes (timed/untimed): 43 Viri Farr PT documented in this encounter [facility] 05-12-2022 History of Present illness Narrative Episode Visit Count: 24 Therapist That Will Oversee The Plan Of Care: Viri Farr Start of Care Date: 01/18/22 Onset Date: 09/07/21 Patient Identified by Name and Date of : Yes REHABILITATION AND SPORTS THERAPY PHYSICAL THERAPY TREATMENT NOTE ASSESSMENT: Percy Ware tolerated the session with no issues. She demonstrated improvements in soft tissue condition and LE function/gait. The patient will continue to benefit from ongoing skilled physical therapy to progress toward set goals. PLAN FOR NEXT VISIT: Gianna LOYOLA, POC update 05/19. SUBJECTIVE: Patient Reason for Visit: Pt reports she has continued to ambulate short distances without her cane more and more, but if she does too much will have increased knee pain. Pain: Pain Pain Level: 0 Pain Location: Knee - Right;Knee - Left Post Treatment Pain Post Treatment Pain Level: 0 OBJECTIVE MEASURES WITH LEVEL OF FUNCTION: Lymphedema Fibrosis Comments:: Tissue soft throughout. TREATMENT: Manual Therapy: 1: MLD B LE utilizing B inguinoaxillary anastamoses and stationary circles, pump and rotary strokes. Skilled Intervention: Manual skills to improve joint mobility, ROM, and decrease pain. Utilized anatomy knowledge of the therapist, and assessment of patient's response to intervention. Manual techniques to facilitate lymphatic dynamics and improve condition of tissue. Billing KX Modifier : Therapist attests that services rendered are medically necessary. Manual TherapyTreatment Minutes: 42 Total Treatment Time Minutes (timed/untimed): 42 Viri Farr PT documented in this encounter [facility] 05-08-2022 History of Present illness Narrative Episode Visit Count: 23 Therapist That Will Oversee The Plan Of Care: Viri Farr Start of Care Date: 01/18/22 Onset Date: 09/07/21 Patient Identified by Name and Date of : Yes REHABILITATION AND SPORTS THERAPY PHYSICAL THERAPY TREATMENT NOTE ASSESSMENT: Percy Ware tolerated the session with no issues. She demonstrated continued soft tissue integrity and good skin hydration. The patient will continue to benefit from ongoing skilled physical therapy to progress toward set goals. PLAN FOR NEXT VISIT: Continue MLD and exercise. May assess some volume measurements in next few visits. SUBJECTIVE: Patient Reason for Visit: Pt states her insurance has approved the compression pump and she should have it to use within a couple of weeks. Pain: Pain Pain Level: (No complaints of pain today.) OBJECTIVE MEASURES WITH LEVEL OF FUNCTION: Lymphedema Fibrosis Comments:: No fibrosis throuhgout B LEs. TREATMENT: Manual Therapy: 1: MLD B LE utilizing B inguinoaxillary anastamoses and stationary circles, pump and rotary strokes. Skilled Intervention: Manual skills to improve joint mobility, ROM, and decrease pain. Utilized anatomy knowledge of the therapist, and assessment of patient's response to intervention. Manual techniques to facilitate lymphatic dynamics and improve condition of tissue. Billing KX Modifier : Therapist attests that services rendered are medically necessary. Manual TherapyTreatment Minutes: 42 Total Treatment Time Minutes (timed/untimed): 42 Viri Farr PT documented in this encounter [facility] 05-05-2022 History of Present illness Narrative Episode Visit Count: 22 Therapist That Will Oversee The Plan Of Care: Viri Farr Start of Care Date: 01/18/22 Onset Date: 09/07/21 Patient Identified by Name and Date of : Yes REHABILITATION AND SPORTS THERAPY PHYSICAL THERAPY TREATMENT NOTE ASSESSMENT: Percy Ware tolerated the session with no issues. She demonstrated improvements in independence of gait (less dependence on cane). The patient will continue to benefit from ongoing skilled physical therapy to progress toward set goals. PLAN FOR NEXT VISIT: Continue with MLD and exercise. SUBJECTIVE: Patient Reason for Visit: Pt stating she has been walking away from her cane lately, noticing she does not need it as much and forgets about it sometimes. She states she decided not to use her cane very much yesterday and did well, but than later that evening and today her knees are bothering her more. Pain: Pain Pain Level: (not rated numerically) Pain Location: Knee - Right;Knee - Left;Leg - Right;Leg - Left Post Treatment Pain Post Treatment Pain Level: 0 OBJECTIVE MEASURES WITH LEVEL OF FUNCTION: Lymphedema Fibrosis Comments:: Tissue remains soft B LEs. TREATMENT: Manual Therapy: 1: MLD B LE utilizing B inguinoaxillary anastamoses and stationary circles, pump and rotary strokes. Skilled Intervention: Manual skills to improve joint mobility, ROM, and decrease pain. Utilized anatomy knowledge of the therapist, and assessment of patient's response to intervention. Manual techniques to facilitate lymphatic dynamics and improve condition of tissue. Billing KX Modifier : Therapist attests that services rendered are medically necessary. Manual TherapyTreatment Minutes: 43 Total Treatment Time Minutes (timed/untimed): 43 Viri Farr PT documented in this encounter [facility] 05-03-2022 History of Present illness Narrative Episode Visit Count: 21 Therapist That Will Oversee The Plan Of Care: Viri Farr Start of Care Date: 01/18/22 Onset Date: 09/07/21 Patient Identified by Name and Date of : Yes REHABILITATION AND SPORTS THERAPY PHYSICAL THERAPY TREATMENT NOTE ASSESSMENT: Percy Ware tolerated the session with no issues. She demonstrated improvements in subjective report of favorable response to trial of home pneumatic compression pump for B LEs. The patient will continue to benefit from ongoing skilled physical therapy to progress toward set goals. PLAN FOR NEXT VISIT: Continue with MLD and exercise. SUBJECTIVE: Patient Reason for Visit: Pt states she met with the equipment rep and was able to try the compression pump on her legs. She reports favorable response and is eager to receive her device that is ordered for home use. Pain: Pain Pain Level: 0 Pain Location: Knee - Right;Knee - Left;Leg - Right;Leg - Left Post Treatment Pain Post Treatment Pain Level: 0 OBJECTIVE MEASURES WITH LEVEL OF FUNCTION: Lymphedema Fibrosis Comments:: Tissue remains soft B LEs. TREATMENT: Manual Therapy: 1: MLD B LE utilizing B inguinoaxillary anastamoses and stationary circles, pump and rotary strokes. Skilled Intervention: Manual skills to improve joint mobility, ROM, and decrease pain. Utilized anatomy knowledge of the therapist, and assessment of patient's response to intervention. Manual techniques to facilitate lymphatic dynamics and improve condition of tissue. Billing KX Modifier : Therapist attests that services rendered are medically necessary. Manual TherapyTreatment Minutes: 48 Total Treatment Time Minutes (timed/untimed): 48 Viri Farr PT documented in this encounter [facility] 04-19-2022 History of Present illness Narrative Episode Visit Count: 20 Therapist That Will Oversee The Plan Of Care: Viri Farr Start of Care Date: 01/18/22 Onset Date: 09/07/21 Patient Identified by Name and Date of : Yes REHABILITATION AND SPORTS THERAPY PHYSICAL THERAPY PROGRESS REPORT PLAN OF CARE UPDATE: Assessment: Percy Ware demonstrates improvements in rising from a chair, standing, walking and working. She hasprogressed toward goals. Patient continues to present with impairments in edema management, gait and tissue tenderness that interfere with . Current prognosis is Good due to: current objective clinical presentation;good support system/ coping skills chronic nature of impairments . She will benefit from continued skilled therapy services to meet the updated goals for this plan of care as noted below. Goals for Episode of Care: created on 01/18/22 through 03/18/22 Goals updated on 04/19/2022. Patient / family knowledgeable re: all pertinent aspects of CDT (Met) Patient / family independent with donning / doffing compression garment and proper wearing schedule and care of garment (Partially Met)-Pt is currently independent with compression leggings, but has not obtained custom, graduated compression garments yet. Patient / family independent with home exercise program (Met) Patient will decrease circumferential measurements by 10-30% in the following areas: B LE for decreased recurrence of infection, improved mobility, improved range of motion and allow appropriate fit in compressive garment. (Met) Pt will demonstrate improved soft tissue condition with no fibrosis throughout B LE. (Met) Pt will obtain appropriate compression garments to assist in effective self-management of LE lymphedema. (Partially Met) Patient Goals: To reduce the swelling in the legs and be able to get around better. To get back on the eliptical again. Planned Interventions, Frequency, and Duration: 2x/week, 8 weeks Total Number of Visits Planned: 16 Patient to be seen for Therapeutic exercise ([id number]);Manual therapy ([id number]);Self-retirement management ([id number]);Patient/Family/Caregiver Education PLAN FOR NEXT VISIT: Continue with MLD, resume LE exercise as able, and continue to assist pt to obtain comression garments and per pt request, pneumatic leg pumps SUBJECTIVE: Patient Reason for Visit: Pt reports her legs have been feeling better and is noticing her pants are feeling much bigger than before starting therapy. Pain: Pain Pain Level: 0 (0 currently) Pain Location: Knee - Right;Knee - Left;Leg - Right;Leg - Left Description: (Not as tight and stiff in lower legs, knees less painful.) Post Treatment Pain Post Treatment Pain Level: No Change PROMIS Scales Higher is Better 04/18/2022 Phys Func - Score 30 (moderate dysfunction) Phys Func - Percentile 2 % Social Roles - Score 31 (moderate dysfunction) Social Role - Percentile 3 % GH Physical - Score 42.3 (Good) GH Physical - Percentile 22 % GH Mental - Score 53.3 (Very Good) GH Mental - Percentile 63 % Self-Eff Symptom - Score 47 (Average) Self-Eff Symptom - Percentile 38 % T-scores: mean of general population = 50. 5 points is clinically meaningfully difference Percentiles provide an indication of how the patient's score ranks in relation to the general population. Higher percentile rankings indicate better function/quality of life. 50th percentile is the average of the general population and indicates half of respondents had a worse score. Lower is Better 04/18/2022 Fatigue - Score 45 (within normal limits) Fatigue - Percentile 69 % T-scores: mean of general population = 50. 5 points is clinically meaningfully difference Percentiles provide an indication of how the patient's score ranks in relation to the general population. Higher percentile rankings indicate better function/quality of life. 50th percentile is the average of the general population and indicates half of respondents had a worse score. OBJECTIVE MEASURES WITH LEVEL OF FUNCTION: Lymphedema Fibrosis Comments:: No fibrosis present B LEs. Lower Extremity Circumferential Measurements R 1st toe (proximal phalanx): 9.5 R Metatarsal Phalangeal (MTP): 25 R Arch: 26.5 R 5 cm from floor: 34.5 cm R 10 cm from floor: 37 cm R 15 cm from floor: 46 cm R 20 cm from floor: 52.5 cm R 25 cm from floor: 55 cm R 30 cm from floor: 65 cm R 35 cm from floor: 71 cm R 40 cm from floor: 76 cm (knee) R 45 cm from floor: 78 cm R 50 cm from floor: 81 cm R 55 cm from floor: 86 cm L 1st toe (proximal phalanx): 10 L Metatarsal Phalangeal (MTP): 25.5 L Arch: 26.5 L 5 cm from floor: 35 cm L 10 cm from floor: 44.5 cm L 15 cm from floor: 52 cm L 20 cm from floor: 56 cm L 25 cm from floor: 62.5 cm L 30 cm from floor: 66 cm L 35 cm from floor: 73 cm L 40 cm from floor: 76 cm (knee) L 45 cm from floor: 87 cm L 50 cm from floor: 85 cm L 55 cm from floor: 83 cm Affected Leg: Bilateral, Left Leg Larger Calculate Volume : Yes R Lower Extremity Volume: 06456 L Lower Extremity Volume: 86624 Difference in Volume: 1903 Difference in % : 11.61 Gait Gait Observation: Pt ambulates independently with straight cane and mild lateral trunk deviation. Increased kerrie and no antalgic pattern. TREATMENT: Manual Therapy: 1: MLD B LE utilizing B inguinoaxillary anastamoses and stationary circles, pump and rotary strokes. Skilled Intervention: Manual skills to improve joint mobility, ROM, and decrease pain. Utilized anatomy knowledge of the therapist, and assessment of patient's response to intervention. Manual techniques to facilitate lymphatic dynamics and improve condition of tissue. Billing Manual TherapyTreatment Minutes: 55 Total Treatment Time Minutes (timed/untimed): 55 Viri Farr PT documented in this encounter [facility] 04-14-2022 History of Present illness Narrative Episode Visit Count: 19 Therapist That Will Oversee The Plan Of Care: Viri Farr Start of Care Date: 01/18/22 Onset Date: 09/07/21 Patient Identified by Name and Date of : Yes REHABILITATION AND SPORTS THERAPY PHYSICAL THERAPY TREATMENT NOTE ASSESSMENT: Percy Ware tolerated the session with decreased symptoms and no issues. She demonstrated difficulty with increased edema after stationary and gravity dependent sitting for 6 hour work day yesterday. and improvements in subjective reports of shoes feeling looser on her feet. The patient will continue to benefit from ongoing skilled physical therapy for reassessment by supervising therapist. PLAN FOR NEXT VISIT: POC update. 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 She states she can feel the thightness/light burning in lower legs again today. She states they did feel better last evening after doing the decongestive exercises (HEP). She notes that prior to this she had noticed her shoes were easier to get on and off and felt looser when wearing. Pain: Pain Pain Level: (Not rated numerically.) Pain Location: Knee - Right;Knee - Left;Leg - Right;Leg - Left Description: (Pt states, The knees are not too bad, but I can feel my lower legs. ) Post Treatment Pain Post Treatment Pain Level: Better Post Treatment Pain Location: Leg - Right;Leg - Left;Knee - Right;Knee - Left OBJECTIVE MEASURES WITH LEVEL OF FUNCTION: Lymphedema Fibrosis Comments:: Soft and malleable throughout B LE skin and soft tissue. TREATMENT: Therapeutic Exercise: 1: Pt deferred seated stepper again today stating that she has more walking to do later today and did not want to make her legs too tired/sore. Skilled Intervention: Reviewed and educated patient on additions/changes for home exercise program. Manual Therapy: 1: MLD B LE utilizing B inguinoaxillary anastamoses and stationary circles, pump and rotary strokes. Skilled Intervention: Manual skills to improve joint mobility, ROM, and decrease pain. Utilized anatomy knowledge of the therapist, and assessment of patient's response to intervention. Billing Manual TherapyTreatment Minutes: 52 Total Treatment Time Minutes (timed/untimed): 52 Viri Farr PT documented in this encounter [facility] 04-12-2022 History of Present illness Narrative Episode Visit Count: 18 Therapist That Will Oversee The Plan Of Care: Viri Farr Start of Care Date: 01/18/22 Onset Date: 09/07/21 Patient Identified by Name and Date of : Yes REHABILITATION AND SPORTS THERAPY PHYSICAL THERAPY TREATMENT NOTE ASSESSMENT: Percy Ware tolerated the session with no issues. She demonstrated improvements in gait and function. The patient will continue to benefit from ongoing skilled physical therapy to progress toward set goals. PLAN FOR NEXT VISIT: Continue MLD. May resume seated stepper per pt preference. Update 04/17. SUBJECTIVE: Patient Reason for Visit: Pt reports she is improving in function and knees are feeling better. She noticed she has been finding that she walks somewhere without her cane without thinking. She has done this just within the home a few times. States she is wearing the smaller size leggings now, too. Pain: Pain Pain Level: 0 (0 at rest/sitting (min. tightness in lower legs), 5 when walking in) Pain Location: Knee - Right;Knee - Left Post Treatment Pain Post Treatment Pain Level: No Change OBJECTIVE MEASURES WITH LEVEL OF FUNCTION: Gait Gait Observation: Pt ambulating with increased kerrie and decreased lateral deviation. TREATMENT: Manual Therapy: 1: MLD B LE utilizing B inguinoaxillary anastamoses and stationary circles, pump and rotary strokes. Skilled Intervention: Manual skills to improve joint mobility, ROM, and decrease pain. Utilized anatomy knowledge of the therapist, and assessment of patient's response to intervention. Manual techniques to facilitate lymphatic dynamics and improve condition of tissue. Billing Manual TherapyTreatment Minutes: 43 Total Treatment Time Minutes (timed/untimed): 43 Viri Farr PT documented in this encounter [facility] 04-07-2022 History of Present illness Narrative Episode Visit Count: 17 Therapist That Will Oversee The Plan Of Care: Viri Farr Start of Care Date: 01/18/22 Onset Date: 09/07/21 Patient Identified by Name and Date of : Yes REHABILITATION AND SPORTS THERAPY PHYSICAL THERAPY TREATMENT NOTE ASSESSMENT: Percy Ware tolerated the session with decreased symptoms. She demonstrated improvements in reduction of volume measurements B LEs. The patient will continue to benefit from ongoing skilled physical therapy to progress toward set goals. PLAN FOR NEXT VISIT: Continue MLD and seated stepper if favorable response. SUBJECTIVE: Patient Reason for Visit: Pt states her knees are feeling a little better today. She would like to try the seated stepper again. She notes she is making some dietary changes that will hopefully be helping her knee/joint pain. Pain: Pain Pain Location: Knee - Right;Knee - Left Post Treatment Pain Post Treatment Pain Location: Knee - Right;Knee - Left Post Treatment Pain Description: (Pt reports her knees, feel good right now .) OBJECTIVE MEASURES WITH LEVEL OF FUNCTION: Lower Extremity Circumferential Measurements R Arch: 27.5 R 10 cm from floor: 46.5 cm R 20 cm from floor: 57 cm R 30 cm from floor: 68 cm R 40 cm from floor: 75.5 cm R 50 cm from floor: 85 cm L Arch: 27 L 10 cm from floor: 47 cm L 20 cm from floor: 58 cm L 30 cm from floor: 68 cm L 40 cm from floor: 76 cm (knee) L 50 cm from floor: 86.5 cm TREATMENT: Therapeutic Exercise: 1: [employer] seated stepper x 2:30min (Pt noted decreased knee pain after stepper and no pain with weight bearing afterwards.) Skilled Intervention: Patient was educated in proper exercise technique and purpose for exercises. Skilled judgment was provided in selection of appropriate interventions. Correct performance of therapeutic exercises was facilitated with verbal cuing. Patient education as noted. Manual Therapy: 1: MLD B LE utilizing B inguinoaxillary anastamoses and stationary circles, pump and rotary strokes. Skilled Intervention: Manual skills to improve joint mobility, ROM, and decrease pain. Utilized anatomy knowledge of the therapist, and assessment of patient's response to intervention. Manual techniques to facilitate lymphatic dynamics and improve condition of tissue. Billing Therapeutic Exercise Treatment Minutes: 5 Manual TherapyTreatment Minutes: 55 Total Treatment Time Minutes (timed/untimed): 60 Viri Farr PT documented in this encounter [facility] 03-31-2022 History of Present illness Narrative Episode Visit Count: 15 Therapist That Will Oversee The Plan Of Care: Yordan Viri Start of Care Date: 01/18/22 Onset Date: 09/07/21 Patient Identified by Name and Date of : Yes REHABILITATION AND SPORTS THERAPY PHYSICAL THERAPY TREATMENT NOTE ASSESSMENT: Percy Ware tolerated the session with no issues. She demonstrated improvements in pain reduction and improved gait. The patient will continue to benefit from ongoing skilled physical therapy to progress toward set goals. PLAN FOR NEXT VISIT: Continue MLD B LE sequence. SUBJECTIVE: Patient Reason for Visit: Pt reports her knees are feeling better today. Pain: Pain Pain Level: 3 Pain Location: Knee - Right;Knee - Left Post Treatment Pain Post Treatment Pain Level: No Change Post Treatment Pain Location: Knee - Right;Knee - Left OBJECTIVE MEASURES WITH LEVEL OF FUNCTION: Gait Gait Observation: Pt ambulates independently with straight cane and increased kerrie. TREATMENT: Manual Therapy: 1: MLD B LE utilizing B inguinoaxillary anastamoses and stationary circles, pump and rotary strokes. Skilled Intervention: Manual skills to improve joint mobility, ROM, and decrease pain. Utilized anatomy knowledge of the therapist, and assessment of patient's response to intervention. Manual techniques to facilitate lymphatic dynamics and improve condition of tissue. Billing Manual TherapyTreatment Minutes: 43 Total Treatment Time Minutes (timed/untimed): 43 Viri Farr PT documented in this encounter [facility] 03-27-2022 History of Present illness Narrative Episode Visit Count: 14 Therapist That Will Oversee The Plan Of Care: Viri Farr Start of Care Date: 01/18/22 Onset Date: 09/07/21 Patient Identified by Name and Date of : Yes REHABILITATION AND SPORTS THERAPY PHYSICAL THERAPY TREATMENT NOTE ASSESSMENT: Percy Ware tolerated the session with no issues. She demonstrated improvements in loosening of underlying tissue. The patient will continue to benefit from ongoing skilled physical therapy to progress toward set goals. PLAN FOR NEXT VISIT: B LE MLD SUBJECTIVE: Patient Reason for Visit: Pt notes she did not have as much reduction in knee symptoms after last session. She states she would rather not do the seated stepper today. Pain: Pain Pain Level: 4 Pain Location: Knee - Right;Knee - Left Description: (Increases to 6-7/10 when prolonged standing/walking) Post Treatment Pain Post Treatment Pain Level: (Not rated numerically, but states that they both feel better at end of treatment.) Post Treatment Pain Location: Knee - Right;Knee - Left OBJECTIVE MEASURES WITH LEVEL OF FUNCTION: Lymphedema Fibrosis Comments:: Underlying tissue feels looser today, especially medial knee and lower legs. TREATMENT: Manual Therapy: 1: MLD B LE utilizing B inguinoaxillary anastamoses and stationary circles, pump and rotary strokes. Skilled Intervention: Manual skills to improve joint mobility, ROM, and decrease pain. Utilized anatomy knowledge of the therapist, and assessment of patient's response to intervention. Manual techniques to facilitate lymphatic dynamics and improve condition of tissue. Billing Manual TherapyTreatment Minutes: 45 Total Treatment Time Minutes (timed/untimed): 45 Viri Farr PT documented in this encounter [facility] 03-24-2022 History of Present illness Narrative Episode Visit Count: 13 Therapist That Will Oversee The Plan Of Care: Viri Farr Start of Care Date: 01/18/22 Onset Date: 09/07/21 Patient Identified by Name and Date of : Yes REHABILITATION AND SPORTS THERAPY PHYSICAL THERAPY TREATMENT NOTE ASSESSMENT: Percy Ware tolerated the session with no issues. She demonstrated improvements in report of no knee pain and improved function following previous treatment. The patient will continue to benefit from ongoing skilled physical therapy to progress toward set goals. PLAN FOR NEXT VISIT: Continue MLD and resume seated stepper if knee pain is decreased. 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 Then she reports being on her feet most of the day yesterday and was not able to elevate her legs when she was sitting down so is more painful today. Currently medial knees rated 4/10. Pain: Pain Pain Level: 4 Pain Location: Knee - Right;Knee - Left Post Treatment Pain Post Treatment Pain Level: 3 (left knee 0/10) Post Treatment Pain Location: Knee - Right OBJECTIVE MEASURES WITH LEVEL OF FUNCTION: Lymphedema Fibrosis Comments:: Good skin hydration and normal color. TREATMENT: Manual Therapy: 1: MLD B LE utilizing B inguinoaxillary anastamoses and stationary circles, pump and rotary strokes. Skilled Intervention: Manual skills to improve joint mobility, ROM, and decrease pain. Utilized anatomy knowledge of the therapist, and assessment of patient's response to intervention. Manual techniques to facilitate lymphatic dynamics and improve condition of tissue. Billing Manual TherapyTreatment Minutes: 45 Total Treatment Time Minutes (timed/untimed): 45 Viri Farr PT documented in this encounter [facility] 03-20-2022 History of Present illness Narrative Episode Visit Count: 12 Therapist That Will Oversee The Plan Of Care: Viri Farr Start of Care Date: 01/18/22 Onset Date: 09/07/21 Patient Identified by Name and Date of : Yes REHABILITATION AND SPORTS THERAPY PHYSICAL THERAPY PROGRESS REPORT PLAN OF CARE UPDATE: Assessment: Percy Ware demonstrates difficulty with prolonged sitting and walking in the community and improvements in B LE volume. (Pt demonstrates overall reduction of 16% R LE and 26% L LE.) She has progressed toward goals. Patient continues to present with impairments in edema management, gait, independence in exercise, overall function and tissue tenderness that interfere with walking in the community (prolonged sitting) . Current prognosis is Good due to: current objective clinical presentation;good support system/ coping skills . She will benefit from continued skilled therapy services to meet the updated goals for this plan of care as noted below. Goals for Episode of Care: created on 01/18/22 through 03/18/22 Goals updated on 03/20/2022. Patient / family knowledgeable re: all pertinent aspects of CDT (Met) Patient / family independent with donning / doffing compression garment and proper wearing schedule and care of garment (Partially Met)-Pt is currently independent with compression leggings, but has not obtained custom, graduated compression garments yet. Patient / family independent with home exercise program (Met) Patient will decrease circumferential measurements by 10-30% in the following areas: B LE for decreased recurrence of infection, improved mobility, improved range of motion and allow appropriate fit in compressive garment. (Met) Pt will demonstrate improved soft tissue condition with no fibrosis throughout B LE. (Met) Pt will obtain appropriate compression garments to assist in effective self-management of LE lymphedema. (Partially Met) Patient Goals: To reduce the swelling in the legs and be able to get around better. To get back on the eliptical again. Planned Interventions, Frequency, and Duration: 2x/week, 4 weeks Total Number of Visits Planned: 8 Patient to be seen for Therapeutic exercise (62704);Manual therapy ([id number]);Self-retirement management ([id number]);Patient/Family/Caregiver Education PLAN FOR NEXT VISIT: Resume MLD and LE exercises as tolerated d/t knee pain. SUBJECTIVE: Patient Reason for Visit: Pt reports her knees were painful during her trip and this was worse than the actual lower legs (swelling pressure). She reports they did get tight, but the skin was not shiny like before when it swelled. Notes her R knee staretd locking up on her intermittently when driving/sitting. Last few days has had numbness at times B lower legs/feet. Pt also notes she has called the leg pump rep twice and has not heard back from them yet. Functional Limitations: walking in the community (prolonged sitting) Pain: Pain Pain Level: 4 Pain Location: Knee - Right;Knee - Left Post Treatment Pain Post Treatment Pain Level: 0 Post Treatment Pain Location: Knee - Right;Knee - Left Post Treatment Pain Description: (It feels better after lying down for a while.) PROMIS Scales T-scores: mean of general population = 50. 5 points is clinically meaningfully difference Percentiles provide an indication of how the patient's score ranks in relation to the general population. Higher percentile rankings indicate better function/quality of life. 50th percentile is the average of the general population and indicates half of respondents had a worse score. T-scores: mean of general population = 50. 5 points is clinically meaningfully difference Percentiles provide an indication of how the patient's score ranks in relation to the general population. Higher percentile rankings indicate better function/quality of life. 50th percentile is the average of the general population and indicates half of respondents had a worse score. OBJECTIVE MEASURES WITH LEVEL OF FUNCTION: Lymphedema Fibrosis Comments:: Underlying tissue remains soft throughout B LE. Lower Extremity Circumferential Measurements R 1st toe (proximal phalanx): 10 R Metatarsal Phalangeal (MTP): 25 R Arch: 28 R 5 cm from floor: 35 cm R 10 cm from floor: 48.5 cm R 15 cm from floor: 54.5 cm R 20 cm from floor: 58 cm R 25 cm from floor: 66 cm R 30 cm from floor: 69 cm R 35 cm from floor: 73 cm R 40 cm from floor: 76 cm (knee) R 45 cm from floor: 80 cm R 50 cm from floor: 86 cm L 1st toe (proximal phalanx): 10 L Metatarsal Phalangeal (MTP): 27 L Arch: 27 L 5 cm from floor: 36 cm L 10 cm from floor: 48 cm L 15 cm from floor: 55.5 cm L 20 cm from floor: 60 cm L 25 cm from floor: 67.5 cm L 30 cm from floor: 72 cm L 35 cm from floor: 77 cm (knee) L 40 cm from floor: 80 cm L 45 cm from floor: 87 cm Affected Leg: Bilateral, Right Leg Larger Calculate Volume : Yes R Lower Extremity Volume: 21394 L Lower Extremity Volume: 46099 Difference in Volume: 1646 Difference in % : 10.45 Gait Gait Observation: Pt using straight cane for ambulation stating her knees feel worse later on after walking if she doesn't use it. Cane used in L UE to assist with decreasing R LE weight bearing for pain reduction. TREATMENT: Manual Therapy: 1: MLD B LE utilizing B inguinoaxillary anastamoses and stationary circles, pump and rotary strokes. Skilled Intervention: Manual skills to improve joint mobility, ROM, and decrease pain. Utilized anatomy knowledge of the therapist, and assessment of patient's response to intervention. Manual techniques to facilitate lymphatic dynamics and improve condition of tissue. Billing Manual TherapyTreatment Minutes: 47 Total Treatment Time Minutes (timed/untimed): 47 Viri Farr PT documented in this encounter [facility] 02-28-2022 History of Present illness Narrative POPULATION HEALTH NAVIGATION OUTREACH Action/FYI Patient due for PCP follow up 04/11/22. Venyohart sent Pt identified by name and : NO Outreach Outcome/Action MyChart message sent Reason for Outreach Care Gap or Scheduling/Wellness visits Payer: Payor: [employer] / Plan: [employer] H[employer] / Product Type: HMO / Care Gap Reviewed:: Follow-up appointment Reminder: Reminder note to check Health Maintenance for items below Health Maintenance items due: PNEUMOCOCCAL: 63+(1 - PCV) Never done Message Sent to Practice: No Navigation Signature: Yesi Hernandez MA February 28, 2022 11:25 AM documented in this encounter [facility] 02-20-2022 History of Present illness Narrative Episode Visit Count: 10 Therapist That Will Oversee The Plan Of Care: Viri Farr Start of Care Date: 01/18/22 Onset Date: 09/07/21 Patient Identified by Name and Date of : Yes REHABILITATION AND SPORTS THERAPY PHYSICAL THERAPY TREATMENT NOTE ASSESSMENT: Percy Fabio Ware tolerated the session with no issues. She demonstrated difficulty with variation of pain level following treatments and improvements in overall subjective report of smptoms. The patient will continue to benefit from ongoing skilled physical therapy to progress toward set goals. PLAN FOR NEXT VISIT: Gianna PENDLETON MLD. 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 Then the next day she had incresaed pain that she stayed lying down with her feet elevated most of the day. Then the next day, she felt really good again. She felt that her legs looked better both days and she did not feel that the distal loer leg tissue was hanging over her foot. She reports doing the Decongestive exercises in her tub this morning with water up to her waist. Pain: Pain Pain Level: 4 Pain Location: Leg - Right;Leg - Left;Knee - Right;Knee - Left OBJECTIVE MEASURES WITH LEVEL OF FUNCTION: Lymphedema Fibrosis Comments:: Soft tissue throughout B LE. Gait Gait Observation: Noted incresaed kerrie with ambulation into dept using stratight cane. TREATMENT: Manual Therapy: 1: MLD B LE utilizing B inguinoaxillary anastamoses and stationary circles, pump and rotary strokes. Skilled Intervention: Manual skills to improve joint mobility, ROM, and decrease pain. Utilized anatomy knowledge of the therapist, and assessment of patient's response to intervention. Manual techniques to facilitate lymphatic dynamics and improve condition of tissue. Billing Manual TherapyTreatment Minutes: 43 Total Treatment Time Minutes (timed/untimed): 43 Viri Farr PT documented in this encounter [facility] 02-17-2022 History of Present illness Narrative Episode Visit Count: 9 Therapist That Will Oversee The Plan Of Care: Viri Farr Start of Care Date: 01/18/22 Onset Date: 09/07/21 Patient Identified by Name and Date of : Yes REHABILITATION AND SPORTS THERAPY PHYSICAL THERAPY PROGRESS REPORT PLAN OF CARE UPDATE: Assessment: Percy Ware demonstrates improvements in walking. She has progressed toward goals. Patient continues to present with impairments in tissue tenderness and limb volume that interfere with walking;walking in the community (previous exercise activity) . Current prognosis is Good due to: current objective clinical presentation;good support system/ coping skills . She will benefit from continued skilled therapy services to meet the updated goals for this plan of care as noted below. Goals for Episode of Care: created on 01/18/22 through 03/18/22 Goals updated on 02/17/2022. Patient / family knowledgeable re: all pertinent aspects of CDT (Partially Met) Patient / family independent with donning / doffing compression garment and proper wearing schedule and care of garment (Not Met) Patient / family independent with home exercise program (Met) Patient will decrease circumferential measurements by 10-30% in the following areas: B LE for decreased recurrence of infection, improved mobility, improved range of motion and allow appropriate fit in compressive garment. (Partially Met) Pt will demonstrate improved soft tissue condition with no fibrosis throughout B LE. (Met) Pt will obtain appropriate compression garments to assist in effective self-management of LE lymphedema. (Not Met) Patient Goals: To reduce the swelling in the legs and be able to get around better. To get back on the eliptical again. Planned Interventions, Frequency, and Duration: 2x/week, 4 weeks Total Number of Visits Planned: 8 Patient to be seen for Therapeutic exercise (94323);Manual therapy (99437);Self-retirement management ([id number]);Patient/Family/Caregiver Education PLAN FOR NEXT VISIT: Continue MLD B LE. Continue to advise/assist in obtaining appropriate compression. SUBJECTIVE: Patient Reason for Visit: Pt states she had one day this week that she had no pain/burning in her legs. She notes the knees were more sore again yesterday. She states she feels she maybe did more than she should have when she was feeling good. She notes she made some adjustments to raise the foot of her bed to elevate legs when she sleeps. Functional Limitations: walking;walking in the community (previous exercise activity) Pain: Pain Pain Level: 5 Pain Location: Leg - Right;Leg - Left;Knee - Right;Knee - Left Post Treatment Pain Post Treatment Pain Level: 5 Post Treatment Pain Location: Leg - Right;Leg - Left;Knee - Right;Knee - Left PROMIS Scales T-scores: mean of general population = 50. 5 points is clinically meaningfully difference Percentiles provide an indication of how the patient's score ranks in relation to the general population. Higher percentile rankings indicate better function/quality of life. 50th percentile is the average of the general population and indicates half of respondents had a worse score. T-scores: mean of general population = 50. 5 points is clinically meaningfully difference Percentiles provide an indication of how the patient's score ranks in relation to the general population. Higher percentile rankings indicate better function/quality of life. 50th percentile is the average of the general population and indicates half of respondents had a worse score. OBJECTIVE MEASURES WITH LEVEL OF FUNCTION: Lymphedema Fibrosis Comments:: Skin and tissue is soft through out. Lower Extremity Circumferential Measurements R 1st toe (proximal phalanx): 9.5 R Metatarsal Palangeal (MTP): 25.5 R Arch: 28 R 5 cm from floor: 35 cm R 10 cm from floor: 45 cm R 15 cm from floor: 53 cm R 20 cm from floor: 57 cm R 25 cm from floor: 65.5 cm R 30 cm from floor: 72 cm R 35 cm from floor: 77.5 cm R 40 cm from floor: 78 cm (knee) R 45 cm from floor: 81 cm R 50 cm from floor: 88 cm L 2nd toe (proximal phalanx): 26.5 L Metatarsal Palangeal (MTP): 26.5 L Arch: 27.5 L 5 cm from floor: 35.5 cm L 10 cm from floor: 47 cm L 15 cm from floor: 56.6 cm L 20 cm from floor: 60 cm L 25 cm from floor: 67 cm L 30 cm from floor: 71 cm L 35 cm from floor: 77 cm (knee) L 40 cm from floor: 85 cm L 45 cm from floor: 87 cm Affected Leg: Bilateral, Right Leg Larger Calculate Volume : Yes R Lower Extremity Volume: 47069 L Lower Extremity Volume: 38592 Difference in Volume: 1825 Difference in % : 11.28 Gait Gait Observation: Pt ambulating with straight cane today supporting R LE.Not leaning on cane as much today as previously TREATMENT: Manual Therapy: 1: MLD B LE utilizing B inguinoaxillary anastamoses and stationary circles, pump and rotary strokes. Skilled Intervention: Manual skills to improve joint mobility, ROM, and decrease pain. Utilized anatomy knowledge of the therapist, and assessment of patient's response to intervention. Billing Manual TherapyTreatment Minutes: 50 Total Treatment Time Minutes (timed/untimed): 50 Viri Farr PT documented in this encounter [facility] 02-13-2022 History of Present illness Narrative Episode Visit Count: 8 Therapist That Will Oversee The Plan Of Care: Viri Farr Start of Care Date: 01/18/22 Onset Date: 09/07/21 Patient Identified by Name and Date of : Yes REHABILITATION AND SPORTS THERAPY PHYSICAL THERAPY TREATMENT NOTE ASSESSMENT: Percy Ware tolerated the session with no issues. She demonstrated improvements in subjective reports of symptoms and improved condition of soft tissue B LE. The patient will continue to benefit from ongoing skilled physical therapy to progress toward set goals. PLAN FOR NEXT VISIT: POC update. SUBJECTIVE: Patient Reason for Visit: Pt states her knees are feeling a little better, but still painful. Notes they are feeling stronger. She states they only clicked once. Her legs feel sore with intermittent burning. She reports she kept her legs propped up as much as she could. Overall better than last visit. 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 Pt notes that they feel, much better .) OBJECTIVE MEASURES WITH LEVEL OF FUNCTION: Lymphedema Fibrosis Comments:: Soft tissue palpably softer with increased malleability throughout B LE. Especially noted L lower leg. TREATMENT: Manual Therapy: 1: MLD B LE utilizing B inguinoaxillary anastamoses and stationary circles, pump and rotary strokes. Skilled Intervention: Manual skills to improve joint mobility, ROM, and decrease pain. Utilized anatomy knowledge of the therapist, and assessment of patient's response to intervention. Self-Correction Management: 1: Discussed LE compression and pt notes she feels the leggings she is using is a good amount of compression because they are just comfortable enough. She feels if she had anything tighter that they would hurt and not be comfortable to wear. Skilled Intervention: Skilled judgment in the selection of proper modification for activity of daily living/home management based on clinical presentation, deficits, and needs. Educated the patient regarding recommendations and pt verbalized understanding to facilitate compliance. Reviewed patient specific diagnosis in relation to activities of daily living/home management. Billing Manual TherapyTreatment Minutes: 40 Self-Care/Home Management Treatment Minutes: 5 Total Treatment Time Minutes (timed/untimed): 45 Viri Farr PT documented in this encounter [facility] 02-10-2022 History of Present illness Narrative Episode Visit Count: 7 Therapist That Will Oversee The Plan Of Care: Viri Farr Start of Care Date: 01/18/22 Onset Date: 09/07/21 Patient Identified by Name and Date of : Yes REHABILITATION AND SPORTS THERAPY PHYSICAL THERAPY TREATMENT NOTE ASSESSMENT: Percy Ware tolerated the session with decreased pain. She demonstrated difficulty with pain and abnormal gait and improvements in subjective report of decreased volume. The patient will continue to benefit from ongoing skilled physical therapy to progress toward set goals. PLAN FOR NEXT VISIT: MLD B LE and assess fit and use of compression velcro wraps. SUBJECTIVE: Patient Reason for Visit: Pt reports painful legs and knees and felt more swelling past couple of days, but is better today. She notes she has been keeping he rlegs up more last night and this morning and feels this has helped. She states she feels her legs have reduced some today and it was easier to get her shoes on (not as tight). She notes she received what is described like a Reduction Kit, but did not bring it with her today as she did not have time to get it donned and fit. Pain: Pain Pain Level: 8 Pain Location: Knee - Right Description: (painful when walking) Post Treatment Pain Post Treatment Pain Level: (not rated) Post Treatment Symptoms: Pt reports her legs feel better and not nearly the pain as when she came in, though not rated numerically. OBJECTIVE MEASURES WITH LEVEL OF FUNCTION: Lymphedema Fibrosis Comments:: B LE tissue is soft throughout with no fibrosis or pitting appreciated. Gait Gait Observation: Pt ambulating with straight cane today supporting R LE. TREATMENT: Manual Therapy: 1: MLD B LE utilizing B inguinoaxillary anastamoses and stationary circles, pump and rotary strokes. Skilled Intervention: Manual skills to improve joint mobility, ROM, and decrease pain. Utilized anatomy knowledge of the therapist, and assessment of patient's response to intervention. Manual techniques to facilitate lymphatic dynamics and improve condition of tissue. Self-Correction Management: 1: Discussed pt's compression velcro wraps and encouraged her to don and use as following the maternal child nurse's directions. Pt updated that she has spoken with her insurance and is going to call the pump rep back to proceed with ordering. Skilled Intervention: Skilled judgment in the selection of proper modification for activity of daily living/home management based on clinical presentation, deficits, and needs. Educated the patient regarding recommendations and provided written instruction to facilitate compliance. Billing Manual TherapyTreatment Minutes: 40 Self-Care/Home Management Treatment Minutes: 5 Total Treatment Time Minutes (timed/untimed): 45 Viri Farr PT documented in this encounter [facility] 02-06-2022 History of Present illness Narrative Episode Visit Count: 6 Therapist That Will Oversee The Plan Of Care: Viri Farr Start of Care Date: 01/18/22 Onset Date: 09/07/21 Patient Identified by Name and Date of : Yes REHABILITATION AND SPORTS THERAPY PHYSICAL THERAPY TREATMENT NOTE ASSESSMENT: Percy Ware tolerated the session with no issues. She demonstrated difficulty with increased pain and swelling in her knees and legs over the weekend when traveling out of state. The patient will continue to benefit from ongoing skilled physical therapy to progress toward set goals. PLAN FOR NEXT VISIT: Continue with MLD and exercise. Continue to assist pt with appropriate compression as she awaits arrival of garments and pump. SUBJECTIVE: Patient Reason for Visit: Pt states she had knee and leg pain over the weekend during her trip d/t lots of driving and she was only able to sit with her legs up for a short time. She states she did take her cane and felt this helped to relieve some pressure/pain when walking. She notes they are feeling better today as she was able to spend more time in her recliner. She has the compression wraps ordered and is checking into getting the leg pumps as well. Pain: Pain Pain Level: (not rated numerically) Pain Location: Leg - Right;Leg - Left;Knee - Right;Knee - Left Description: (full, heavy, not painful today, just sore) Post Treatment Pain Post Treatment Pain Location: Leg - Right;Leg - Left Post Treatment Symptoms: Pt reports her legs feel much better at end of treatment today and is able to walk with decreased pain as well. OBJECTIVE MEASURES WITH LEVEL OF FUNCTION: Lymphedema Fibrosis Comments:: No fibrosis noted today Gait Gait Observation: Pt ambulating with straight cane today. TREATMENT: Manual Therapy: 1: MLD B LE utilizing B inguinoaxillary anastamoses and stationary circles, pump and rotary strokes. Skilled Intervention: Manual skills to improve joint mobility, ROM, and decrease pain. Utilized anatomy knowledge of the therapist, and assessment of patient's response to intervention. Manual techniques to facilitate lymphatic dynamics and improve condition of tissue. Billing Manual TherapyTreatment Minutes: 42 Total Treatment Time Minutes (timed/untimed): 42 Viri Farr PT documented in this encounter [facility] 02-03-2022 History of Present illness Narrative Episode Visit Count: 5 Therapist That Will Oversee The Plan Of Care: Viri Farr Start of Care Date: 01/18/22 Onset Date: 09/07/21 Patient Identified by Name and Date of : Yes REHABILITATION AND SPORTS THERAPY PHYSICAL THERAPY TREATMENT NOTE ASSESSMENT: Percy Ware tolerated the session with decreased activity tolerance due to increased B knee/leg pain and decreased pain by end of treatment today. She demonstrated improvements in decreased pain and maintaining improved soft tissue condition. The patient will continue to benefit from ongoing skilled physical therapy to progress toward set goals. PLAN FOR NEXT VISIT: May increase seated stepper time to 5 minutes again if pt notes decreased leg pain.Continue iwth MLD B LE. SUBJECTIVE: Patient Reason for Visit: Pt states her legs were feeling good until Sunday night when she fell asleep in her recliner with her legs down. She ended up sleeping in this position for the rest of the night and had increased pain when waking up in the morning. Pt reports she will be traveling out of town this weekend and plans to take her cane along to relieve some of the pressure/pain on knees when standing and walking. Pain: Pain Pain Level: 8 Pain Location: Leg - Right;Leg - Left;Knee - Right;Knee - Left Description: Sore (knee pain with standing and walking.) Post Treatment Pain Post Treatment Pain Level: 1 Post Treatment Pain Location: Knee - Right;Knee - Left Post Treatment Symptoms: Pt states that her legs do feel much better at end of session. OBJECTIVE MEASURES WITH LEVEL OF FUNCTION: Lymphedema Fibrosis Comments:: B LE remain soft and malleable. Gait Gait Observation: Gait is a little more labored today with lateral trunk deviation and leg circumduction. TREATMENT: Therapeutic Exercise: 1: [employer] seated stepper, seat 14, x 3 min Skilled Intervention: Patient was educated in proper exercise technique and purpose for exercises. Reviewed and educated patient on additions/changes for home exercise program. Skilled judgment was provided in selection of appropriate interventions. Correct performance of therapeutic exercises was facilitated with verbal and visual cuing. Patient education as noted. Manual Therapy: 1: MLD B LE utilizing B inguinoaxillary anastamoses and stationary circles, pump and rotary strokes. Skilled Intervention: Manual skills to improve joint mobility, ROM, and decrease pain. Utilized anatomy knowledge of the therapist, and assessment of patient's response to intervention. Manual techniques to facilitate lymphatic dynamics and improve condition of tissue. Billing Therapeutic Exercise Treatment Minutes: 5 Manual TherapyTreatment Minutes: 40 Total Treatment Time Minutes (timed/untimed): 45 Viri Farr PT documented in this encounter [facility] 01-27-2022 History of Present illness Narrative Episode Visit Count: 3 Therapist That Will Oversee The Plan Of Care: Viri Farr Start of Care Date: 01/18/22 Onset Date: 09/07/21 Patient Identified by Name and Date of : Yes REHABILITATION AND SPORTS THERAPY PHYSICAL THERAPY TREATMENT NOTE ASSESSMENT: Percy Ware tolerated the session with no issues. She demonstrated improvements in subjective report of loosening of leggings (volume reduction) and increased urination following decongestive exercises. The patient will continue to benefit from ongoing skilled physical therapy to progress toward set goals. PLAN FOR NEXT VISIT: February trial seated stepper x 3-5 min as knees tolerate and continue with MLD B LE. SUBJECTIVE: Patient Reason for Visit: Pt stating she is still looking into compression options. She states that her current leggings are feeling looser on her legs today. She reports increased frequency of voiding following performance of the decongestive exercises (HEP). Pain: Pain Pain Level: 0 Pain Location: Leg - Right;Leg - Left;Knee - Right;Knee - Left Frequency: Intermittent (B knee pain with initial stance.) Post Treatment Pain Post Treatment Pain Level: 0 OBJECTIVE MEASURES WITH LEVEL OF FUNCTION: Lymphedema Fibrosis Comments:: Mild fibrosis distal lower legswhich is softening from initial visit. TREATMENT: Manual Therapy: 1: MLD B LE utilizing B inguinoaxillary anastamoses and stationary circles, pump and rotary strokes. Skilled Intervention: Manual skills to improve joint mobility, ROM, and decrease pain. Utilized anatomy knowledge of the therapist, and assessment of patient's response to intervention. Manual techniques to facilitate lymphatic dynamics and improve condition of tissue. Billing Manual TherapyTreatment Minutes: 42 Total Treatment Time Minutes (timed/untimed): 42 Viri Farr PT documented in this encounter [facility] 01-23-2022 History of Present illness Narrative Episode Visit Count: 2 Therapist That Will Oversee The Plan Of Care: Viri Farr Start of Care Date: 01/18/22 Onset Date: 09/07/21 Patient Identified by Name and Date of : Yes REHABILITATION AND SPORTS THERAPY PHYSICAL THERAPY TREATMENT NOTE ASSESSMENT: Percy Ware tolerated the session with no issues. She demonstrated good tolerance to initial MLD treatment. The patient will continue to benefit from ongoing skilled physical therapy to progress toward set goals. PLAN FOR NEXT VISIT: Continue MLD and compression. May add LE exercises per tolerance of L knee. SUBJECTIVE: Patient Reason for Visit: Pt stating some of the exercises caused knee pain and she did not do any yesterday. She states she feels that the leggings she is wearing are doing a good job of supporting her edema and her knee feels better when she is wearing them. She found ordered some compression socks, but is not sure if they will fit. Pain: Pain Pain Level: 0 Pain Location: Leg - Right;Leg - Left Frequency: Intermittent Post Treatment Pain Post Treatment Pain Level: 0 OBJECTIVE MEASURES WITH LEVEL OF FUNCTION: Lymphedema Fibrosis Comments:: softening of mild fibrosis at distal L lower leg TREATMENT: Manual Therapy: 1: Initiated MLD for L LE sequence only, d/t time constraints. Utilized stationary circles, pump and rotary strokes. Skilled Intervention: Manual skills to improve joint mobility, ROM, and decrease pain. Utilized anatomy knowledge of the therapist, and assessment of patient's response to intervention. Manual techniques to facilitate lymphatic dynamics and improve condition of tissue. Self-Correction Management: 1: Introduced pt to a sample LE and foot Reduction Kit and other similar options from [employer], [employer], etc. Educated in various features. Pt to investigate online and check with insurance coverage. Skilled Intervention: Skilled judgment in the selection of proper modification for activity of daily living/home management based on clinical presentation, deficits, and needs. Educated the patient regarding recommendations and provided written instruction to facilitate compliance. Reviewed patient specific diagnosis in relation to activities of daily living/home management. Billing Manual TherapyTreatment Minutes: 38 Self-Care/Home Management Treatment Minutes: 7 Total Treatment Time Minutes (timed/untimed): 45 Viri Farr PT documented in this encounter [facility] 01-18-2022 History of Present illness Narrative Episode Visit Count: 1 Therapist That Will Oversee The Plan Of Care: Viri Farr Start of Care Date: 01/18/22 Onset Date: 09/07/21 Patient Identified by Name and Date of : Yes REHABILITATION AND SPORTS THERAPY PHYSICAL THERAPY EVALUATION PLAN OF CARE: Assessment: Percy Ware presents with diagnosis of lower extremity edema that interferes with walking;walking in the community (previous exercise activity (eliptical, fitness walking)) . She presents with impairments in gait, tissue tenderness, B LE volume and soft tissue condition. Prognosis for therapy is Good due to: current objective clinical presentation;good support system/ coping skills;Prognosis may be limited due to chronic nature of impairments . She will benefit from skilled therapy services to meet the goals established for this plan of care as noted below. Goals for Episode of Care: created on 01/18/22 through 03/18/22 Patient / family knowledgeable re: all pertinent aspects of CDT Patient / family independent with donning / doffing compression garment and proper wearing schedule and care of garment Patient / family independent with home exercise program Patient will decrease circumferential measurements by 10-30% in the following areas: B LE for decreased recurrence of infection, improved mobility, improved range of motion and allow appropriate fit in compressive garment. Pt will demonstrate improved soft tissue condition with no fibrosis throughout B LE. Pt will obtain appropriate compression garments to assist in effective self-management of LE lymphedema. Patient Goals: To reduce the swelling in the legs and be able to get around better. To get back on the eliptical again. Planned Interventions, Frequency, and Duration: Current Frequency: 2x/week Duration: 8 weeks Total Number of Visits Planned: 16 Planned Treatment Interventions: Therapeutic exercise (18893);Manual therapy (54022);Self-retirement management ([id number]);Patient/Family/Caregiver Education PLAN FOR NEXT VISIT: Review HEP. Initiate MLD for B LE sequence. Follow up discussion regarding compression (pump/garments). Patient demonstrates good understanding of plan of care and treatment. The above goals and plan of care were discussed and agreed upon by patient/family. SUBJECTIVE: Percy Ware is a 71 year old female seen today for History of colon CA, with mets to lungs and liver in 1993. Pt underwent colon surgery with extensive lymph node removal. She did not have chemo ro radiation, but was treated with alternative medicine (minerals, vitamins, the life machine, etc.) She notes original onset of B LE swelling around 2008. Pt reports her legs have gotten worse since September when she was sick and had significant decrease in activity level. She notes she has been propping her legs at night in recliner with a wedge type cushion and feels that this is helping a little bit. (Just started last week.) Swelling is generaly better in the mornings. She states she cannot wear compression stockings as she has to have custom ordered to be big enough to fit and is out of her ram range. She has found some some leggings that provide some compression/support and are comfortable for her to wear. (She notes 2 different sizes that one is more compressive than the other.) She notes she had a compression pump years ago, but the sleeves do not fit around her legs currently so she can't use them. Patient Goals: To reduce the swelling in the legs and be able to get around better. To get back on the eliptical again. 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 5 points is clinically meaningfully difference Percentiles provide an indication of how the patient's score ranks in relation to the general population. Higher percentile rankings indicate better function/quality of life. 50th percentile is the average of the general population and indicates half of respondents had a worse score. T-scores: mean of general population = 50. 5 points is clinically meaningfully difference Percentiles provide an indication of how the patient's score ranks in relation to the general population. Higher percentile rankings indicate better function/quality of life. 50th percentile is the average of the general population and indicates half of respondents had a worse score. OBJECTIVE MEASURES WITH LEVEL OF FUNCTION: Lymphedema Presents with: Swelling;Decreased knowledge of lymphedema management;Functional Limitations;Pain Lymphedema is better: In AM Lymphedema Contributing Factors: Lymph Node Removal;High BMI Lymphedema Contributing Factors Comments: recent period of immobility d/t illness Relative Contra-indications to Compression: : None Relative Contra-indications to Manual Lymph Drainage: : None Relative Contra-indications to Neck Manual Lymph Drainage: : Age (>70 years old) Relative Contra-indications for Abdominal Sequences: None Previous Lymphedema Treatment: Compression Garment;Pneumatic pump / ICP Pneumatic pump/ICP: the wraps are currently not big enough so is unable to use. Skin: Fibrosis Fibrosis Comments:: mild at distal L lower leg Stage of Lymphedema: 2 Lower Extremity Circumferential Measurements R 1st toe (proximal phalanx): 10 R Metatarsal Palangeal (MTP): 26.5 R Arch: 28 R 5 cm from floor: 37 cm R 10 cm from floor: 45.5 cm R 15 cm from floor: 53 cm R 20 cm from floor: 57 cm R 25 cm from floor: 63 cm R 30 cm from floor: 71 cm R 35 cm from floor: 76 cm R 40 cm from floor: 78 cm (knee) R 45 cm from floor: 81.5 cm R 50 cm from floor: 86 cm R 55 cm from floor: 86 cm L 1st toe (proximal phalanx): 10.5 L Metatarsal Palangeal (MTP): 27 L Arch: 27.5 L 5 cm from floor: 37 cm L 10 cm from floor: 49 cm L 15 cm from floor: 56.5 cm L 20 cm from floor: 59 cm L 25 cm from floor: 65.5 cm L 30 cm from floor: 70 cm L 35 cm from floor: 74.5 cm L 40 cm from floor: 77 cm (knee) L 45 cm from floor: 79 cm L 50 cm from floor: 86.5 cm L 55 cm from floor: 85 cm Affected Leg: Bilateral, Left Leg Larger Calculate Volume : Yes R Lower Extremity Volume: 19100 L Lower Extremity Volume: 95848 Difference in Volume: 134 Difference in % : 0.71 Gait Gait Observation: Pt ambulates independently with no assistive device demonstrating lateral deviation and circumduction of legs d/t proximal thigh mass and decreased kerrie. Education: Education Learning Preferences: Demonstration;Explanation Barriers: None Learning/educational needs: Home exercise program;Plan of Care;Lymphedema Program Education Provided: Yes, see treatment interventions for education provided Education Provided To: Patient Education Mode/Type: Demonstration;Explanation/Discussi on;Performance;Literature/Printed Materials Response to Education/Teach Back: States/Identifies;Return Demonstration TREATMENT: PT Treatment Interventions: Therapeutic Exercise;Self-Correction Management Evaluation Therapeutic Exercise: 1: Instructed pt in LE Decongestive Exercises. Skilled Intervention: Patient was educated in proper exercise technique and purpose for exercises. Skilled judgment was provided in selection of appropriate interventions. Provided written instruction for home exercise program to facilitate proper performance and compliance. Correct performance of therapeutic exercises was facilitated with verbal and visual cuing. Patient education as noted. Self-Correction Management: 1: Educated pt in lymphedema and CDT treatment. Educated regarding compression recommendations and options (garments, Reduciton Kit, short-stretch wrapping and pump) 2: Educated pt in activity level and avoiding prolonged sitting at computer with legs in dependent position. Educated in use of swimming pool for exercise. Pt notes she does not have access to a pool, but has a walk-in tub in which she can fill the water to chest height in sitting on the seat. Instructed pt can do the decongestive exercises or other LE exercise/movements in the water to better affect lymphdynamics. 3: Gave pt contact info for compression pump rep to inquire about larger sizes of sleeves or new device that would be effective for home use. Skilled Intervention: Skilled judgment in the selection of proper modification for activity of daily living/home management based on clinical presentation, deficits, and needs. Educated the patient regarding recommendations and provided written instruction to facilitate compliance. Reviewed patient specific diagnosis in relation to activities of daily living/home management. Billing * Evaluation Low Complexity: 1 Unit Therapeutic Exercise Treatment Minutes: 12 Self-Care/Home Management Treatment Minutes: 33 Total Treatment Time Minutes (timed/untimed): 67 Viri Farr PT documented in this encounter [facility] 01-10-2022 Instructions Fiorella Puente MD - 01/10/2022 11:30 AM EDT Call if any concerns or questions. documented in this encounter [facility] 01-10-2022 History of Present illness Narrative This note was created using Walltik[employer]. Subjective Percy Ware is a 70 year old female. The patient is here for a follow up. The patient is up to date on her routine blood work. She previously declined any screening or immunizations. She doesn't smoke and does need refills. She reports she is doing better in terms of eating healthier. She reports her activity level has been better, but she still isn't where she needs to be. She just completed her living will and advanced directives. She has been using her BiPAP filters. She reports she has been changing the filters regularly. She reports her shortness of breath is a little better. She feels as though she is able to take deeper breaths and do more than she was able to. She is still waiting on her new machine. She reports she does still have to sleep in her recliner. The patient reports that the new prescription for mucinex was different and she wasn't able to take it due to itching. She reports, however, her congestion has been better. She reports her blood pressure has looked good at home. She has been taking the hydralazine only once daily and it has been good. She still needs to reschedule with cardiology. She reports she does watch her salt intake. The patient also has concerns about her leg swelling. She feels as though it is getting worse. She reports she can't find compression stockings that will fit. She tried tubi-asphalt tamping machine operator, but reports they didn't seem to help at all. The patient reports she got a lymphedema pump, but wasn't able to put them on stating they won't fit. The history is provided by the patient. Hypertension This is a chronic problem. The current episode started more than 1 year ago. The problem is unchanged. The problem is controlled. Associated symptoms include shortness of breath (improving). Pertinent negatives include no chest pain, headaches (resolved) or palpitations. Risk factors for coronary artery disease include obesity and post-menopausal state. Past treatments include diuretics and central alpha agonists. The current treatment provides significant improvement. There are no compliance problems. There is no history of CAD/AL. There is no history of a thyroid problem. Shortness of Breath The current episode started more than 1 month ago. The problem occurs constantly. The problem has been gradually improving. Associated symptoms include leg swelling. Pertinent negatives include no abdominal pain (resolved), chest pain, fever, headaches (resolved), rash, sore throat or vomiting. The symptoms are aggravated by any activity. She has tried rest for the symptoms. The treatment provided moderate relief. Edema This is a chronic problem. The current episode started more than 1 year ago. The problem occurs constantly. The problem has been waxing and waning. Associated symptoms include arthralgias (knees), congestion (improving), numbness (occasional in feet) and weakness (improving). Pertinent negatives include no abdominal pain (resolved), chest pain, coughing (resolved), fever, headaches (resolved), nausea, rash, sore throat or vomiting. ALLERGIES Allergen Reactions Iodine [Contrast Dy* Hives Lasix [Furosemide] Rash Penicillins Itching, Anaphylaxis Red Dye Swelling Sulfa (Sulfonamide * Itching, Anaphylaxis Tape [Adhesive Tape* Rash Amoxicillin-Pot Cla* Unknown Ciprofloxacin Rash Clindamycin Unknown Erythromycin Unknown Hydrocodone Unknown Latex Rash Losartan Rash, Swelling Mandelamine [Methe* Unknown Metoprolol Unknown Minocycline Unknown Moxifloxacin Unknown Naldecon Unknown Neomycin Unknown Nitrofurantoin Unknown Pseudoephedrine Hcl Unknown Shellfish Containin* Unknown [place] Unknown Sulfamethoxazole-Tr* Unknown Current Outpatient Medications Medication Sig Dispense Refill MUCINEX 600 mg 12 hr tablet Take 1 tablet by mouth twice daily. 60 tablet 0 [employer] [place] In Line Bacterial Filter 5 Each 0 fexofenadine (ELIZA ALLERGY) 60 mg tablet Take 1 tablet by mouth once daily. 10 tablet 0 potassium chloride (K-TAB) 10 mEq tablet Take 1 tablet by mouth once daily. 90 tablet 1 chlorthalidone (HYGROTON) 25 mg tablet Take 1 tablet by mouth once daily. 90 tablet 2 atenolol (TENORMIN) 25 mg tablet Take 1 tablet by mouth once daily. 60 tablet 3 PEG 400-Propylene Glycol (SYSTANE) 0.4-0.3 % dpet Use in both eyes twice daily as needed. ZINC ORAL Take by mouth. cholecalciferol, vitamin D3, (VITAMIN D3 ORAL) Take by mouth. hydrALAZINE (APRESOLINE) 50 mg tablet Take 1 tablet by mouth three times daily. (Patient taking differently: Take 50 mg by mouth once daily. ) 270 tablet 3 Magnesium 200 mg tab Take 2 tablets by mouth once daily. Triple magnesium 400 mg Blood Pressure Monitor (BLOOD PRESSURE KIT) kit 1 Each once daily. 1 Kit 0 ASPIRIN ORAL Take 325 mg by mouth once daily. COMPOUNDED PRESCRIPTION bipap machine and all supplies, mask ect Settings 07/13 1 Units 0 No current facility-administered medications for this visit. 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 Review of Systems Constitutional: Positive for unexpected weight change (weight gain). Negative for fever. HENT: Positive for congestion (improving). Negative for hearing loss (resolved) and sore throat. Eyes: Negative for visual disturbance (resolved). Respiratory: Positive for shortness of breath (improving). Negative for cough (resolved) and chest tightness. Cardiovascular: Positive for leg swelling. Negative for chest pain and palpitations. Gastrointestinal: Negative for abdominal pain (resolved), blood in stool (5 days ago, resolved), constipation, diarrhea, nausea and vomiting. Genitourinary: Negative for difficulty urinating and dysuria (resolved). Musculoskeletal: Positive for arthralgias (knees). Negative for gait problem. Skin: Negative for rash. Neurological: Positive for weakness (improving), light-headedness (occasional) and numbness (occasional in feet). Negative for dizziness, syncope and headaches (resolved). Psychiatric/Behavioral: Negative for dysphoric mood, self-injury and suicidal ideas. Objective BP 122/78 (BP Site: Left Arm, BP Position: Sitting, BP Cuff Size: Large Adult) Pulse 79 Temp 37.1 C (98.7 F) Resp 18 Ht 157.7 cm (5' 2.1 ) Wt (!) 153.3 kg (338 lb) SpO2 96% BMI 61.62 kg/m Physical Exam Vitals and nursing note reviewed. Constitutional: General: She is not in acute distress. Appearance: She is morbidly obese. She is not diaphoretic. HENT: Head: Normocephalic and atraumatic. Mouth/Throat: Mouth: Mucous membranes are moist. Pharynx: Oropharynx is clear. Eyes: Conjunctiva/sclera: Conjunctivae normal. Pupils: Pupils are equal, round, and reactive to light. Cardiovascular: Rate and Rhythm: Normal rate and regular rhythm. Heart sounds: Normal heart sounds. No murmur heard. Pulmonary: Effort: Pulmonary effort is normal. No respiratory distress. Breath sounds: Normal breath sounds. No wheezing. Abdominal: General: Bowel sounds are normal. There is no distension. Palpations: Abdomen is soft. Tenderness: There is abdominal tenderness (mild) in the left lower quadrant. There is no guarding or rebound. Musculoskeletal: Right lower leg: Edema present. Left lower leg: Edema present. Skin: General: Skin is warm and dry. Findings: No rash. Neurological: Mental Status: She is alert and oriented to person, place, and time. Gait: Gait abnormal. Psychiatric: Mood and Affect: Mood normal. Behavior: Behavior is cooperative. Assessment and Plan 1. Essential hypertension - ICD9: 401.9, ICD10: I10 (primary diagnosis) - good control - Continue current medication(s) - Encouraged dietary sodium restriction/DASH diet - Recommended regular aerobic exercise. - Recommend home blood pressure monitoring, to bring results in on next visit - Goal of BP <130/80 2. ARTURO treated with BiPAP - ICD9: 327.23, ICD10: G47.33 Patient continues to do well with her BiPAP. She has been using the new filters and changing them out frequently and believes that has helped her symptoms. Will continue to monitor. 3. Shortness of breath - ICD9: 786.05, ICD10: R06.02 As above. The patient continues to feel as though her shortness of breath is gradually improving. She would like to try to get a new refill of the mucinex that she previously tolerated. Explained that I can try to reorder it, but I have no control over what the pharmacy specifically carries and she voiced understanding. Again touched base about doing a PFT, but since she feels as though her symptoms are improving, she would like to just continue to monitor. She was encouraged follow up with cardiology as well and she agreed. - MUCINEX 600 MG TABLET, EXTENDED RELEASE 4. Lower extremity edema - ICD9: 782.3, ICD10: R60.0 Patient continues to complain of edema in her legs. She has lymphedema bilaterally without signs of pitting edema. She is unable to wear compression stockings or her pump stating she can't get either on. Will refer to the lymphedema clinic for their assessment and recommendations. She was in agreement. - CONSULT TO LYMPHEDEMA THERAPY 5. History of colon cancer, stage IV - ICD9: V10.05, ICD10: Z85.038 Patient reported during her ROS that on Sunday she had a small amount of blood per rectum which has since resolved. She was also have mild tenderness in her LLQ. She reports a history of both hemorrhoids and diverticulitis. Her symptoms are improved today. Given her history, however, she was strongly encouraged to discuss that with her GI provider, Dr. Lilly. She voiced understanding, but stated she wasn't going to do that at this time. Will continue to monitor. 6. Advance directive in chart - ICD9: V49.89, ICD10: Z78.9 Paperwork completed in the office today. - ADVANCE CARE PLAN DISCUSSION The patient is here for a follow up. Plan as above. Medications reviewed with the patient. Routine follow up scheduled. She was instructed to call with any concerns or questions before then and she was in agreement. Return in about 3 months (around 04/11/2022) for hypertension. Fiorella Puente MD I spent a total of 47 minutes on the date of the service which included preparing to see the patient, [id number] patient care, completing clinical documentation and obtaining and/or reviewing separately obtained history. documented in this encounter [facility] 12-30-2021 History of Present illness Narrative PRIMARY CARE COORDINATION QUICK NOTE Provider Action/FYI Patient identified by name and date . Spoke to patient about advance directives. Patient wishes for Julian Ware to be HCPOA. Son Tani Ware as back up agent Forms completed. Forwarded to [facility]patient will sign when she comes in on 01/10/2022. Living Will also completed and forwarded to [facility] . Snow Navarro RN documented in this encounter [facility] 07-28-2019 History of Past i llness Narrative Problem Noted Date Resolved Date Combined forms of age-related cataract of left e ye 07/28/2019 12/16/2019 Combined forms of age-related cataract of right eye 07/28/2019 12/16/2019 Combined forms of age-related cataract of both e yes 05/10/2018 12/16/2019 documented as of this encounter (statuses as of 12/30/2021) [facility] History of Past illness Narrative* Problem Noted Date Resolved Date Combined forms of age-related cataract of left e ye 07/28/2019 12/16/2019 Combined forms of age-related cataract of right eye 07/28/2019 12/16/2019 Combined forms of age-related cataract of both e yes 05/10/2018 12/16/2019 documented as of this encounter (statuses as of 01/10/2022) [facility] History of Past illness Narrative* Problem Noted Date Resolved Date Combined forms of age-related cataract of left e ye 07/28/2019 12/16/2019 Combined forms of age-related cataract of right eye 07/28/2019 12/16/2019 Combined forms of age-related cataract of both e yes 05/10/2018 12/16/2019 documented as of this encounter (statuses as of 01/18/2022) [facility] History of Past illness Narrative* Problem Noted Date Resolved Date Combined forms of age-related cataract of left e ye 07/28/2019 12/16/2019 Combined forms of age-related cataract of right eye 07/28/2019 12/16/2019 Combined forms of age-related cataract of both e yes 05/10/2018 12/16/2019 documented as of this encounter (statuses as of 01/23/2022) [facility] History of Past illness Narrative* Problem Noted Date Resolved Date Combined forms of age-related cataract of left e ye 07/28/2019 12/16/2019 Combined forms of age-related cataract of right eye 07/28/2019 12/16/2019 Combined forms of age-related cataract of both e yes 05/10/2018 12/16/2019 documented as of this encounter (statuses as of 01/27/2022) [facility] History of Past illness Narrative* Problem Noted Date Resolved Date Combined forms of age-related cataract of left e ye 07/28/2019 12/16/2019 Combined forms of age-related cataract of right eye 07/28/2019 12/16/2019 Combined forms of age-related cataract of both e yes 05/10/2018 12/16/2019 documented as of this encounter (statuses as of 02/03/2022) [facility] of Past illness Narrative* Problem Noted Date Resolved Date Combined forms of age-related cataract of left e ye 07/28/2019 12/16/2019 Combined forms of age-related cataract of right eye 07/28/2019 12/16/2019 Combined forms of age-related cataract of both e yes 05/10/2018 12/16/2019 documented as of this encounter (statuses as of 02/06/2022) [facility] of Past illness Narrative* Problem Noted Date Resolved Date Combined forms of age-related cataract of left e ye 07/28/2019 12/16/2019 Combined forms of age-related cataract of right eye 07/28/2019 12/16/2019 Combined forms of age-related cataract of both e yes 05/10/2018 12/16/2019 documented as of this encounter (statuses as of 02/10/2022) [facility] of Past illness Narrative* Problem Noted Date Resolved Date Combined forms of age-related cataract of left e ye 07/28/2019 12/16/2019 Combined forms of age-related cataract of right eye 07/28/2019 12/16/2019 Combined forms of age-related cataract of both e yes 05/10/2018 12/16/2019 documented as of this encounter (statuses as of 02/13/2022) [facility] of Past [facility] Narrative* Problem Noted Date Resolved Date Combined forms of age-related cataract of left e ye 07/28/2019 12/16/2019 Combined forms of age-related cataract of right eye 07/28/2019 12/16/2019 Combined forms of age-related cataract of both e yes 05/10/2018 12/16/2019 documented as of this encounter (statuses as of 02/17/2022) [facility] of Past illness Narrative* Problem Noted Date Resolved Date Combined forms of age-related cataract of left e ye 07/28/2019 12/16/2019 Combined forms of age-related cataract of right eye 07/28/2019 12/16/2019 Combined forms of age-related cataract of both e yes 05/10/2018 12/16/2019 documented as of this encounter (statuses as of 02/20/2022) [facility] of Past illness Narrative* Problem Noted Date Resolved Date Combined forms of age-related cataract of left e ye 07/28/2019 12/16/2019 Combined forms of age-related cataract of right eye 07/28/2019 12/16/2019 Combined forms of age-related cataract of both e yes 05/10/2018 12/16/2019 documented as of this encounter (statuses as of 02/28/2022) [facility] of Past [facility] Narrative* Problem Noted Date Resolved Date Combined forms of age-related cataract of left e ye 07/28/2019 12/16/2019 Combined forms of age-related cataract of right eye 07/28/2019 12/16/2019 Combined forms of age-related cataract of both e yes 05/10/2018 12/16/2019 documented as of this encounter (statuses as of 03/20/2022) [facility] of Past [facility] Narrative* Problem Noted Date Resolved Date Combined forms of age-related cataract of left e ye 07/28/2019 12/16/2019 Combined forms of age-related cataract of right eye 07/28/2019 12/16/2019 Combined forms of age-related cataract of both e yes 05/10/2018 12/16/2019 documented as of this encounter (statuses as of 03/24/2022) [facility] of Past [facility] Narrative* Problem Noted Date Resolved Date Combined forms of age-related cataract of left e ye 07/28/2019 12/16/2019 Combined forms of age-related cataract of right eye 07/28/2019 12/16/2019 Combined forms of age-related cataract of both e yes 05/10/2018 12/16/2019 documented as of this encounter (statuses as of 03/27/2022) [facility] Narrative* Problem Noted Date Resolved Date Combined forms of age-related cataract of left e ye 07/28/2019 12/16/2019 Combined forms of age-related cataract of right eye 07/28/2019 12/16/2019 Combined forms of age-related cataract of both e yes 05/10/2018 12/16/2019 documented as of this encounter (statuses as of 03/31/2022) [facility] History of Past illness Narrative* Problem Noted Date Resolved Date Combined forms of age-related cataract of left e ye 07/28/2019 12/16/2019 Combined forms of age-related cataract of right eye 07/28/2019 12/16/2019 Combined forms of age-related cataract of both e yes 05/10/2018 12/16/2019 documented as of this encounter (statuses as of 04/07/2022) [facility] History of Past illness Narrative* Problem Noted Date Resolved Date Combined forms of age-related cataract of left e ye 07/28/2019 12/16/2019 Combined forms of age-related cataract of right eye 07/28/2019 12/16/2019 Combined forms of age-related cataract of both e yes 05/10/2018 12/16/2019 documented as of this encounter (statuses as of 04/12/2022) [facility] History of Past illness Narrative* Problem Noted Date Resolved Date Combined forms of age-related cataract of left e ye 07/28/2019 12/16/2019 Combined forms of age-related cataract of right eye 07/28/2019 12/16/2019 Combined forms of age-related cataract of both e yes 05/10/2018 12/16/2019 documented as of this encounter (statuses as of 04/14/2022) [facility] History of Past illness Narrative* Problem Noted Date Resolved Date Combined forms of age-related cataract of left e ye 07/28/2019 12/16/2019 Combined forms of age-related cataract of right eye 07/28/2019 12/16/2019 Combined forms of age-related cataract of both e yes 05/10/2018 12/16/2019 documented as of this encounter (statuses as of 04/19/2022) [facility] History of Past illness Narrative* Problem Noted Date Resolved Date Combined forms of age-related cataract of left e ye 07/28/2019 12/16/2019 Combined forms of age-related cataract of right eye 07/28/2019 12/16/2019 Combined forms of age-related cataract of both e yes 05/10/2018 12/16/2019 documented as of this encounter (statuses as of 05/03/2022) [facility] History of Past illness Narrative* Problem Noted Date Resolved Date Combined forms of age-related cataract of left e ye 07/28/2019 12/16/2019 Combined forms of age-related cataract of right eye 07/28/2019 12/16/2019 Combined forms of age-related cataract of both e yes 05/10/2018 12/16/2019 documented as of this encounter (statuses as of 05/05/2022) [facility] History of Past illness Narrative* Problem Noted Date Resolved Date Combined forms of age-related cataract of left e ye 07/28/2019 12/16/2019 Combined forms of age-related cataract of right eye 07/28/2019 12/16/2019 Combined forms of age-related cataract of both e yes 05/10/2018 12/16/2019 documented as of this encounter (statuses as of 05/08/2022) [facility] History of Past illness Narrative* Problem Noted Date Resolved Date Combined forms of age-related cataract of left e ye 07/28/2019 12/16/2019 Combined forms of age-related cataract of right eye 07/28/2019 12/16/2019 Combined forms of age-related cataract of both e yes 05/10/2018 12/16/2019 documented as of this encounter (statuses as of 05/12/2022) [facility] of Past illness Narrative* Problem Noted Date Resolved Date Combined forms of age-related cataract of left e ye 07/28/2019 12/16/2019 Combined forms of age-related cataract of right eye 07/28/2019 12/16/2019 Combined forms of age-related cataract of both e yes 05/10/2018 12/16/2019 documented as of this encounter (statuses as of 05/15/2022) [facility] History of Past illness Narrative* Problem Noted Date Resolved Date Combined forms of age-related cataract of left e ye 07/28/2019 12/16/2019 Combined forms of age-related cataract of right eye 07/28/2019 12/16/2019 Combined forms of age-related cataract of both e yes 05/10/2018 12/16/2019 documented as of this encounter (statuses as of 05/19/2022) [facility] History of Past illness Narrative* Problem Noted Date Resolved Date Combined forms of age-related cataract of left e ye 07/28/2019 12/16/2019 Combined forms of age-related cataract of right eye 07/28/2019 12/16/2019 Combined forms of age-related cataract of both e yes 05/10/2018 12/16/2019 documented as of this encounter (statuses as of 05/29/2022) [facility] of Past illness Narrative* Problem Noted Date Resolved Date Combined forms of age-related cataract of left e ye 07/28/2019 12/16/2019 Combined forms of age-related cataract of right eye 07/28/2019 12/16/2019 Combined forms of age-related cataract of both e yes 05/10/2018 12/16/2019 documented as of this encounter (statuses as of 06/14/2022) [facility] History of Past illness Narrative* Problem Noted Date Resolved Date Combined forms of age-related cataract of left e ye 07/28/2019 12/16/2019 Combined forms of age-related cataract of right eye 07/28/2019 12/16/2019 Combined forms of age-related cataract of both e yes 05/10/2018 12/16/2019 documented as of this encounter (statuses as of 06/16/2022) [facility] of Past illness Narrative* Problem Noted Date Resolved Date Combined forms of age-related cataract of left e ye 07/28/2019 12/16/2019 Combined forms of age-related cataract of right eye 07/28/2019 12/16/2019 Combined forms of age-related cataract of both e yes 05/10/2018 12/16/2019 documented as of this encounter (statuses as of 06/27/2022) [facility] History of Past illness Narrative* Problem Noted Date Resolved Date Combined forms of age-related cataract of left e ye 07/28/2019 12/16/2019 Combined forms of age-related cataract of right eye 07/28/2019 12/16/2019 Combined forms of age-related cataract of both e yes 05/10/2018 12/16/2019 documented as of this encounter (statuses as of 07/04/2022) [facility] History of Past illness Narrative* Problem Noted Date Resolved Date Combined forms of age-related cataract of left e ye 07/28/2019 12/16/2019 Combined forms of age-related cataract of right eye 07/28/2019 12/16/2019 Combined forms of age-related cataract of both e yes 05/10/2018 12/16/2019 documented as of this encounter (statuses as of 07/07/2022) [facility] History of Past illness Narrative* Problem Noted Date Resolved Date Combined forms of age-related cataract of left e ye 07/28/2019 12/16/2019 Combined forms of age-related cataract of right eye 07/28/2019 12/16/2019 Combined forms of age-related cataract of both e yes 05/10/2018 12/16/2019 documented as of this encounter (statuses as of 09/22/2022) [facility] History of Past illness Narrative* Problem Noted Date Resolved Date Combined forms of age-related cataract of left e ye 07/28/2019 12/16/2019 Combined forms of age-related cataract of right eye 07/28/2019 12/16/2019 Combined forms of age-related cataract of both e yes 05/10/2018 12/16/2019 documented as of this encounter (statuses as of 11/07/2022) [facility] History of Past illness Narrative* Problem Noted Date Resolved Date Combined forms of age-related cataract of left e ye 07/28/2019 12/16/2019 Combined forms of age-related cataract of right eye 07/28/2019 12/16/2019 Combined forms of age-related cataract of both e yes 05/10/2018 12/16/2019 documented as of this encounter (statuses as of 12/01/2022) [facility] History of Past illness Narrative* Problem Noted Date Resolved Date Combined forms of age-related cataract of left e ye 07/28/2019 12/16/2019 Combined forms of age-related cataract of right eye 07/28/2019 12/16/2019 Combined forms of age-related cataract of both e yes 05/10/2018 12/16/2019 documented as of this encounter (statuses as of 12/22/2022) [facility] History of Past illness Narrative* Problem Noted Date Resolved Date Combined forms of age-related cataract of left e ye 07/28/2019 12/16/2019 Combined forms of age-related cataract of right eye 07/28/2019 12/16/2019 Combined forms of age-related cataract of both e yes 05/10/2018 12/16/2019 documented as of this encounter (statuses as of 02/21/2023) [facility] of Past illness Narrative* Problem Noted Date Diagnosed Date Resolved Date Combined forms of age-relate d cataract of left eye 07/28/2019 12/16/2019 Combined forms of age-relate d cataract of right eye 07/28/2019 12/16/2019 Combined forms of age-relate d cataract of both eyes 05/10/2018 12/16/2019 documented as of this encounter (statuses as of 06/21/2023) [facility] History of Past illness Narrative* Problem Noted Date Diagnosed Date Resolved Date Combined forms of age-relate d cataract of left eye 07/28/2019 12/16/2019 Combined forms of age-relate d cataract of right eye 07/28/2019 12/16/2019 Combined forms of age-relate d cataract of both eyes 05/10/2018 12/16/2019 documented as of this encounter (statuses as of 07/20/2023) [facility] of Past illness Narrative* Problem Noted Date Diagnosed Date Resolved Date Combined forms of age-relate d cataract of left eye 07/28/2019 12/16/2019 Combined forms of age-relate d cataract of right eye 07/28/2019 12/16/2019 Combined forms of age-relate d cataract of both eyes 05/10/2018 12/16/2019 documented as of this encounter (statuses as of 08/27/2023) [facility] History of Past illness Narrative* Problem Noted Date Diagnosed Date Resolved Date Combined forms of age-relate d cataract of left eye 07/28/2019 12/16/2019 Combined forms of age-relate d cataract of right eye 07/28/2019 12/16/2019 Combined forms of age-relate d cataract of both eyes 05/10/2018 12/16/2019 documented as of this encounter (statuses as of 11/09/2023) [facility] of Past illness Narrative* Problem Noted Date Diagnosed Date Resolved Date Combined forms of age-relate d cataract of left eye 07/28/2019 12/16/2019 Combined forms of age-relate d cataract of right eye 07/28/2019 12/16/2019 Combined forms of age-relate d cataract of both eyes 05/10/2018 12/16/2019 documented as of this encounter (statuses as of 11/30/2023) [facility] of Past illness Narrative* Problem Noted Date Diagnosed Date Resolved Date Combined forms of age-relate d cataract of left eye 07/28/2019 12/16/2019 Combined forms of age-relate d cataract of right eye 07/28/2019 12/16/2019 Combined forms of age-relate d cataract of both eyes 05/10/2018 12/16/2019 documented as of this encounter (statuses as of 12/14/2023) [facility] Diagnosis Essential hypertension- Primary Unspecified essential hypertension ARTURO treated with BiPAP Shortness of breath Lower extremity edema Edema History of colon cancer, stage IV Personal history of malignant neoplasm of large intestine Advance directive in chart Other specified conditions influencing health status [facility] Diagnosis Lower extremity edema- Primary Edema [facility] Diagnosis Lower extremity edema- Primary Edema [facility] Diagnosis Lower extremity edema- Primary Edema [facility] Diagnosis Lower extremity edema- Primary Edema [facility] Diagnosis Lymphedema praecox- Primary Other lymphedema documented in this encounter [facility] note* Diagnosis Lymphedema praecox- Primary Other lymphedema documented in this encounter [facility] note* Diagnosis Lymphedema praecox- Primary Other lymphedema Lower extremity edema Edema documented in this encounter [facility] note* Diagnosis Lymphedema praecox- Primary Other lymphedema documented in this encounter [facility] note* Diagnosis Lymphedema praecox- Primary Other lymphedema documented in this encounter [facility] note* Diagnosis Lymphedema praecox- Primary Other lymphedema documented in this encounter [facility] note* Diagnosis Lymphedema praecox- Primary Other lymphedema documented in this encounter [facility] note* Diagnosis Lymphedema praecox- Primary Other lymphedema documented in this encounter [facility] note* Diagnosis Lymphedema praecox- Primary Other lymphedema documented in this encounter [facility] note* Diagnosis Lymphedema praecox- Primary Other lymphedema documented in this encounter [facility] note* Diagnosis Lymphedema praecox- Primary Other lymphedema documented in this encounter [facility] note* Diagnosis Lymphedema praecox- Primary Other lymphedema documented in this encounter [facility] note* Diagnosis Essential hypertension- Primary Unspecified essential hypertension Sleep apnea, unspecified type Lymphedema praecox Other lymphedema Obesity, Class III, BMI >= 40 Morbid obesity Carotid bruit, unspecified laterality Status post cataract extraction and insertion of intraocular lens of right eye documented in this encounter [facility] note* Diagnosis Essential hypertension Unspecified essential hypertension documented in this encounter [facility] note* Diagnosis Carotid bruit, unspecified laterality documented in this encounter [facility] note* Diagnosis 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 Dry eye syndrome of both eyes Pseudophakia of both eyes Lens replaced by other means documented in this encounter [facility] note* Diagnosis Essential hypertension Unspecified essential hypertension documented in this encounter [facility] note* Diagnosis Essential hypertension- Primary Unspecified essential hypertension Obesity, Class III, BMI 40-49.9 (morbid obesity) (HCC) Morbid obesity Obstructive sleep apnea syndrome Obstructive sleep apnea (adult) (pediatric) Lymphedema praecox Other lymphedema Morbid obesity due to excess calories (HCC) documented in this encounter [facility] for referral (narrative)* Outpatient Procedure (Routine) - Authorized Specialty Diagnoses / Procedures Referred By Renardac t Referred To Contact [facility] Diagnoses Carotid bruit, unspecified laterality Procedures US CAROTID ARTERIES KACI V[facility] LAB DUPLEX SCAN EXTRACRANIAL [place] [address] [place] [address] [facility] [address] [place] [address] Referral ID Status Reason Start Date Expiration Date Visits Requested Visits Authorized [id number] Authorized Auto-Generat ed Referral 05/29/2022 05/29/2023 1 1 * Outpatient Procedure (Routine) - Closed Specialty Diagnoses / Procedures Referred By Shad t Referred To Contact [facility] Diagnoses Essential hypertension Procedures ECG COMPLETE ECG ROUTINE ECG W/LEAST 12 LDS W/I&[place] [address] [place] [address] [facility] [place] [address] [place] [address] Referral ID Status Reason Start Date Expiration Date V isits Requested Visits Authorized [id number] Closed Auto-Generate d Referral 05/29/2022 05/29/2023 1 1 [facility] for referral (narrative)* Outpatient Procedure (Routine) - Pending Review Specialty Diagnoses / Procedures Referred By Contbill t Referred To Contact [facility] Diagnoses Essential hypertension Procedures ECG COMPLETE ECG ROUTINE ECG W/LEAST 12 LDS W/I&[place] [address] [place] [id number] [facility] [address] [place] [address] Referral ID Status Reason Start Date Expiration Date Visits Requested Visits Authorized [id number] Pending Review Auto-Generat ed Referral 02/08/2024 02/07/2025 1 1 [facility] Outpatient Procedure (Routine) - Closed Specialty Diagnoses / Procedures Referred By Shad santacruz [facility] Diagnoses Carotid bruit, unspecified laterality Procedures US CAROTID ARTERIES KACI VAS LAB DUPLEX SCAN EXTRACRANIAL [place] [address] [place] [address] [facility] [address] [place] [address] Referral ID Status Reason Start Date Expiration Date V isits Requested Visits Authorized [id number] Closed Auto-Generate d Referral 05/29/2022 05/29/2023 1 1 [facility] Summary Purpose Family History No Family History Records FoundNo Family History Records FoundNo Family History Records FoundNo Family History Records FoundNo Family History Records Found Advance Directives Documents on File Type Date Recorded Patient Resolution Manager Expl anation Advance Directive(s) 05/08/2020 2:40 PM Advance Directive(s) 04/09/2020 11:31 AM Advance Directive(s) 05/28/2018 5:42 PM Documents on File Type Date Recorded Patient Resolution Manager Expl anation Advance Directive(s) 05/08/2020 2:40 PM Advance Directive(s) 04/09/2020 11:31 AM Advance Directive(s) 05/28/2018 5:42 PM Procedure Findings Note Post Operative Note: Post-Pr ocedure Diagnosis: Combined form age related cataract left eye, Regular astigmatism left eye Procedure: 1. Cataract extraction with IOL left eye with LRI 2. 3. 4. 5. Surgeon: Sabino Mohamud M.D. Resident/Fellow/Other Administrative Judge: none Estimated Blood Loss (mL): none Specimen: no Findings: Cataract and Regular astigmatism Operative Report Dictated: Dictation: not applicable - note contains Operative Report Operative Report: In the pre-area the patients operative eye was marked at 3 o'clock, 6 o'clock and 9 o'clock at the limbus with a fine marking pen. The patient was brought to the operating room. The patient was correctly identified in the preop area and the operative eye was marked with a marking pen. The operative eye was dilated in the preoperative area. The patient was then taken to the operating room where timeout was performed before starting the procedure. Combined anesthesia with intravenous sedation and topical tetracaine eyedrops were given the left eye (more content not included)... Note Post Operative Note: Post-Pr ocedure Diagnosis: 1. Combined Form Age Related Cataract Right eye 2. Regular Astigmatism Right eye Procedure: 1. Cataract Extraction with Toric Intraocular lens Implant Right Eye Surgeon: Frederick Mohamud MD Resident/Fellow/Other Administrative Judge: None Estimated Blood Loss (mL): none Specimen: no Findings: 1. Combined Form Age Related Cataract Right eye 2. Regular Astigmatism Right eye Operative Report Dictated: Dictation: not applicable - note contains Operative Report Operative Report: The patient was correctly identified in the pre-operative area and the operative eye was marked. The operative eye was dilated in the pre-op area. Under the slit lamp the operative eye was marked using a fine marking pen at 3 o'clock, 6 o'clock and 9 o'clock at the limbus. The patient was taken to the operating room and time out was performed prior to starting the procedure. Combined anesthesia with IV sedation and topical tetracaine eye drops was given. The operative eye was prep (more content not included)... Reason for Referral Specialty Diagnoses / Procedures Referred By Shad santacruz Referred To Contact [facility] Diagnoses Lower extremity edema Procedures CONSULT TO LYMPHEDEMA THERAPY OFFICE/OUTPATIENT [facility] 60-74 MINUTES Fiorella Puente MD [address] [place] [id number] [facility] [place] [address] Referral ID Status Reason Start Date Expiration Date Visits Requested Visits Authorized [id number] Pending Review Auto-Generat ed Referral 01/10/2022 01/10/2023 1 1 Medications Administered Section Active Administered Medications - up to 3 most recent administrations Medication Order MAR Action Action Date Dose Rate Site proparacaine 0.5 % 1 Drop (ALCAINE) 1 Drop, BOTH EYES, DIRECTED, Starting on Sun11/07/22 at 1130, Until Sun11/07/22 at 2329, Administer for pneumo tonometry, tonopen tonometry, or pachymetry. In the event of a proparacaine shortage, administer tetracaine 0.5% ophthalmic drops 1 drop in the left eye as directed for pneumo tonometry, tonopen tonometry, or pachymetry Given 11/07/2022 11:12 AM EST 1 Drop tropicamide 1 % 1 Drop (MYDRIACYL) 1 Drop, BOTH EYES, DIRECTED, Starting on Sun11/07/22 at 1130, Until Sun11/07/22 at 2329, Administer for dilation Given 11/07/2022 11:12 AM EST 1 Drop Additional Source Comments INFORMATION SOURCE (unrecogn ized section and content) DATE CREATED AUTHOR 08/27/2019 [facility] DATE CREATED AUTHOR AUTHOR'S ORGANIZ ATION 12/15/2019 [facility] DATE CREATED AUTHOR AUTHOR'S ORGANIZ ATION 11/25/2022 [facility] DATE CREATED AUTHOR AUTHOR'S ORGANIZ ATION 12/16/2023 [facility] DATE CREATED AUTHOR AUTHOR'S ORGANIZ ATION 02/10/2024 [facility] Source Comments (unrecognize d section and content) In the event this informatio n is protected by the Federal Confidentiality of Alcohol and Drug Abuse Patient Records regulations: The Federal rules restrict any use of the information to criminally investigate or prosecute any alcohol or drug abuse patient.[facility] the event this information is protected by the Federal Confidentiality of Alcohol and Drug Abuse Patient Records regulations: The Federal rules restrict any use of the information to criminally investigate or prosecute any alcohol or drug abuse patient.[facility] the event this information is protected by the Federal Confidentiality of Alcohol and Drug Abuse Patient Records regulations: The Federal rules restrict any use of the information to criminally investigate or prosecute any alcohol or drug abuse patient.[facility] the event this information is protected by the Federal Confidentiality of Alcohol and Drug Abuse Patient Records regulations: The Federal rules restrict any use of the information to criminally investigate or prosecute any alcohol or drug abuse patient.[facility] the event this information is protected by the Federal Confidentiality of Alcohol and Drug Abuse Patient Records regulations: The Federal rules restrict any use of the information to criminally investigate or prosecute any alcohol or drug abuse patient.[facility] the event this information is protected by the Federal Confidentiality of Alcohol and Drug Abuse Patient Records regulations: The Federal rules restrict any use of the information to criminally investigate or prosecute any alcohol or drug abuse patient.[facility] the event this information is protected by the Federal Confidentiality of Alcohol and Drug Abuse Patient Records regulations: The Federal rules restrict any use of the information to criminally investigate or prosecute any alcohol or drug abuse patient.[facility] the event this information is protected by the Federal Confidentiality of Alcohol and Drug Abuse Patient Records regulations: The Federal rules restrict any use of the information to criminally investigate or prosecute any alcohol or drug abuse patient.[facility] the event this information is protected by the Federal Confidentiality of Alcohol and Drug Abuse Patient Records regulations: The Federal rules restrict any use of the information to criminally investigate or prosecute any alcohol or drug abuse patient.[facility] the event this information is protected by the Federal Confidentiality of Alcohol and Drug Abuse Patient Records regulations: The Federal rules restrict any use of the information to criminally investigate or prosecute any alcohol or drug abuse patient.[facility] HospitalIn the event this information is protected by the Federal Confidentiality of Alcohol and Drug Abuse Patient Records regulations: The Federal rules restrict any use of the information to criminally investigate or prosecute any alcohol or drug abuse patient.[facility] HospitalIn the event this information is protected by the Federal Confidentiality of Alcohol and Drug Abuse Patient Records regulations: The Federal rules restrict any use of the information to criminally investigate or prosecute any alcohol or drug abuse patient.[facility] HospitalIn the event this information is protected by the Federal Confidentiality of Alcohol and Drug Abuse Patient Records regulations: The Federal rules restrict any use of the information to criminally investigate or prosecute any alcohol or drug abuse patient.[facility] HospitalIn the event this information is protected by the Federal Confidentiality of Alcohol and Drug Abuse Patient Records regulations: The Federal rules restrict any use of the information to criminally investigate or prosecute any alcohol or drug abuse patient.[facility] HospitalIn the event this information is protected by the Federal Confidentiality of Alcohol and Drug Abuse Patient Records regulations: The Federal rules restrict any use of the information to criminally investigate or prosecute any alcohol or drug abuse patient.[facility] HospitalIn the event this information is protected by the Federal Confidentiality of Alcohol and Drug Abuse Patient Records regulations: The Federal rules restrict any use of the information to criminally investigate or prosecute any alcohol or drug abuse patient.[facility] HospitalIn the event this information is protected by the Federal Confidentiality of Alcohol and Drug Abuse Patient Records regulations: The Federal rules restrict any use of the information to criminally investigate or prosecute any alcohol or drug abuse patient.[facility] HospitalIn the event this information is protected by the Federal Confidentiality of Alcohol and Drug Abuse Patient Records regulations: The Federal rules restrict any use of the information to criminally investigate or prosecute any alcohol or drug abuse patient.[facility] HospitalIn the event this information is protected by the Federal Confidentiality of Alcohol and Drug Abuse Patient Records regulations: The Federal rules restrict any use of the information to criminally investigate or prosecute any alcohol or drug abuse patient.[facility] HospitalIn the event this information is protected by the Federal Confidentiality of Alcohol and Drug Abuse Patient Records regulations: The Federal rules restrict any use of the information to criminally investigate or prosecute any alcohol or drug abuse patient.[facility] HospitalIn the event this information is protected by the Federal Confidentiality of Alcohol and Drug Abuse Patient Records regulations: The Federal rules restrict any use of the information to criminally investigate or prosecute any alcohol or drug abuse patient.[facility] HospitalIn the event this information is protected by the Federal Confidentiality of Alcohol and Drug Abuse Patient Records regulations: The Federal rules restrict any use of the information to criminally investigate or prosecute any alcohol or drug abuse patient.[facility] HospitalIn the event this information is protected by the Federal Confidentiality of Alcohol and Drug Abuse Patient Records regulations: The Federal rules restrict any use of the information to criminally investigate or prosecute any alcohol or drug abuse patient.[facility] HospitalIn the event this information is protected by the Federal Confidentiality of Alcohol and Drug Abuse Patient Records regulations: The Federal rules restrict any use of the information to criminally investigate or prosecute any alcohol or drug abuse patient.[facility] HospitalIn the event this information is protected by the Federal Confidentiality of Alcohol and Drug Abuse Patient Records regulations: The Federal rules restrict any use of the information to criminally investigate or prosecute any alcohol or drug abuse patient.[facility] HospitalIn the event this information is protected by the Federal Confidentiality of Alcohol and Drug Abuse Patient Records regulations: The Federal rules restrict any use of the information to criminally investigate or prosecute any alcohol or drug abuse patient.[facility] HospitalIn the event this information is protected by the Federal Confidentiality of Alcohol and Drug Abuse Patient Records regulations: The Federal rules restrict any use of the information to criminally investigate or prosecute any alcohol or drug abuse patient.[facility] HospitalIn the event this information is protected by the Federal Confidentiality of Alcohol and Drug Abuse Patient Records regulations: The Federal rules restrict any use of the information to criminally investigate or prosecute any alcohol or drug abuse patient.[facility] HospitalIn the event this information is protected by the Federal Confidentiality of Alcohol and Drug Abuse Patient Records regulations: The Federal rules restrict any use of the information to criminally investigate or prosecute any alcohol or drug abuse patient.[facility] HospitalIn the event this information is protected by the Federal Confidentiality of Alcohol and Drug Abuse Patient Records regulations: The Federal rules restrict any use of the information to criminally investigate or prosecute any alcohol or drug abuse patient.[facility] HospitalIn the event this information is protected by the Federal Confidentiality of Alcohol and Drug Abuse Patient Records regulations: The Federal rules restrict any use of the information to criminally investigate or prosecute any alcohol or drug abuse patient.[facility] HospitalIn the event this information is protected by the Federal Confidentiality of Alcohol and Drug Abuse Patient Records regulations: The Federal rules restrict any use of the information to criminally investigate or prosecute any alcohol or drug abuse patient.[facility] HospitalIn the event this information is protected by the Federal Confidentiality of Alcohol and Drug Abuse Patient Records regulations: The Federal rules restrict any use of the information to criminally investigate or prosecute any alcohol or drug abuse patient.[facility] HospitalIn the event this information is protected by the Federal Confidentiality of Alcohol and Drug Abuse Patient Records regulations: The Federal rules restrict any use of the information to criminally investigate or prosecute any alcohol or drug abuse patient.[facility] HospitalIn the event this information is protected by the Federal Confidentiality of Alcohol and Drug Abuse Patient Records regulations: The Federal rules restrict any use of the information to criminally investigate or prosecute any alcohol or drug abuse patient.[facility] HospitalIn the event this information is protected by the Federal Confidentiality of Alcohol and Drug Abuse Patient Records regulations: The Federal rules restrict any use of the information to criminally investigate or prosecute any alcohol or drug abuse patient.[facility] HospitalIn the event this information is protected by the Federal Confidentiality of Alcohol and Drug Abuse Patient Records regulations: The Federal rules restrict any use of the information to criminally investigate or prosecute any alcohol or drug abuse patient.[facility] HospitalIn the event this information is protected by the Federal Confidentiality of Alcohol and Drug Abuse Patient Records regulations: The Federal rules restrict any use of the information to criminally investigate or prosecute any alcohol or drug abuse patient.[facility] HospitalIn the event this information is protected by the Federal Confidentiality of Alcohol and Drug Abuse Patient Records regulations: The Federal rules restrict any use of the information to criminally investigate or prosecute any alcohol or drug abuse patient.[facility] HospitalIn the event this information is protected by the Federal Confidentiality of Alcohol and Drug Abuse Patient Records regulations: The Federal rules restrict any use of the information to criminally investigate or prosecute any alcohol or drug abuse patient.[facility] HospitalIn the event this information is protected by the Federal Confidentiality of Alcohol and Drug Abuse Patient Records regulations: The Federal rules restrict any use of the information to criminally investigate or prosecute any alcohol or drug abuse patient.[facility] HospitalIn the event this information is protected by the Federal Confidentiality of Alcohol and Drug Abuse Patient Records regulations: The Federal rules restrict any use of the information to criminally investigate or prosecute any alcohol or drug abuse patient.[facility] HospitalIn the event this information is protected by the Federal Confidentiality of Alcohol and Drug Abuse Patient Records regulations: The Federal rules restrict any use of the information to criminally investigate or prosecute any alcohol or drug abuse patient.[facility] HospitalIn the event this information is protected by the Federal Confidentiality of Alcohol and Drug Abuse Patient Records regulations: The Federal rules restrict any use of the information to criminally investigate or prosecute any alcohol or drug abuse patient.[facility] HospitalIn the event this information is protected by the Federal Confidentiality of Alcohol and Drug Abuse Patient Records regulations: The Federal rules restrict any use of the information to criminally investigate or prosecute any alcohol or drug abuse patient.[facility] Reason for Visit (unrecogniz ed section and content) Reason Comments PT Progress Note Specialty Diagnoses / Procedures Referred By Contac t Referred To Contact PHYSICAL THERAPY Diagnoses Lower extremity edema Procedures CONSULT TO LYMPHEDEMA THERAPY OFFICE/OUTPATIENT [facility] 60-74 MINUTES Cinthia Puente MD [address] [place] [address] Pt [facility] [address] [place] [address] Referral ID Status Reason Start Date Expiration Date Visits Requested Visits Authorized [id number] Authorized Auto-Generat ed Referral 10/08/2021 10/07/2022 20 20 Reason Comments Physical Therapy Specialty Diagnoses / Procedures Referred By Contac t Referred To Contact PHYSICAL THERAPY Diagnoses Lower extremity edema Procedures CONSULT TO LYMPHEDEMA THERAPY OFFICE/OUTPATIENT [facility] 60-74 MINUTES Fiorella Puente MD [address] [place] [address] Pt [facility] [address] [place] [address] Reason Comments PT Eval Referral ID Status Reason Start Date Expiration Date Visits Requested Visits Authorized [id number] Pending Review Auto-Generat ed Referral 01/10/2022 01/10/2023 1 1 Reason Onset Date Comments 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/Living Will Reason Comments 4 week f/u SOB Reason Onset Date Comments Population Health Navigation Outreach 02/28/2022 [place] Attribution Referral ID Status Reason Start Date Expiration Date V isits Requested Visits Authorized [id number] Closed Auto-Generate d Referral 10/08/2021 10/07/2022 20 20 Reason Comments Cardiology Follow Up Reason Comments Refill Request Reason Onset Date Comments Population Health Navigation Outreach 06/27/2022 [place] Care Gaps Reason Comments 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 Reason Onset Date Comments medication adherence outreach 12/01/2022 Reason Onset Date Comments Refill Request 12/22/2022 Reason Onset Date Comments Erroneous encounter-disregard 02/20/2023 Reason Onset Date Comments Allied Health Visit 06/21/2023 Medication A dherence Outreach Reason Onset Date Comments Population Health Navigation Outreach 07/20/2023 [place] Attributed Member- PCP Attribution Update- Followed Dr Puente to [place] Reason Onset Date Comments Allied Health Visit 08/24/2023 Statin Use R eview Reason Comments Question See note Reason Comments reaction to medication Reason Comments Recheck Care Teams (unrecognized sec tion and content) Collection Analyst Relationship Specialty Start Date End Date Fiorella Puente MD [address] [place] [id number] PCP - General Internal Medicine 05/13/20 Collection Analyst Relationship Specialty Start Date End Date Fiorella Puente MD [address] [place] [address] PCP - General Internal Medicine 05/13/20 Collection Analyst Relationship Specialty Start Date End Date Fiorella Puente MD [address] [place] [address] PCP - General Internal Medicine 05/13/20 Collection Analyst Relationship Specialty Start Date End Date Fiorella Puente MD [address] [place] [address] PCP - General Internal Medicine 05/13/20 Collection Analyst Relationship Specialty Start Date End Date Fiorella Puente MD [address] [place] [address] PCP - General Internal Medicine 05/13/20 Collection Analyst Relationship Specialty Start Date End Date Fiorella Puente MD [address] [place] [address] PCP - General Internal Medicine 05/13/20 Collection Analyst Relationship Specialty Start Date End Date Fiorella Puente MD [address] [facility] [place] [address] PCP - General Internal Medicine 05/13/20 Collection Analyst Relationship Specialty Start Date End Date Fiorella Puente MD [address] [facility] [place] [address] PCP - General Internal Medicine 05/13/20 Collection Analyst Relationship Specialty Start Date End Date Cinthia Puente MD [address] [facility] [place] [address] PCP - General Internal Medicine 05/13/20 Collection Analyst Relationship Specialty Start Date End Date Cinthia Puente MD [address] [facility] [place] [address] PCP - General Internal Medicine 05/13/20 Collection Analyst Relationship Specialty Start Date End Date Cinthia Puente MD [address] [facility] [place] [address] PCP - General Internal Medicine 05/13/20 Collection Analyst Relationship Specialty Start Date End Date Cinthia Puente MD [address] [facility] [place] [address] PCP - General Internal Medicine 05/13/20 Collection Analyst Relationship Specialty Start Date End Date Cinthia Puente MD [address] [place] [address] PCP - General Internal Medicine 05/13/20 Collection Analyst Relationship Specialty Start Date End Date Cinthia Puente MD [address] [place] [address] PCP - General Internal Medicine 05/13/20 Collection Analyst Relationship Specialty Start Date End Date Cinthia Puente MD [address] [facility] [place] [address] PCP - General Internal Medicine 05/13/20 Collection Analyst Relationship Specialty Start Date End Date Cinthia Puente MD [address] [facility] [place] [address] PCP - General Internal Medicine 05/13/20 Collection Analyst Relationship Specialty Start Date End Date Cinthia Puente MD [address] [facility] [place] [address] PCP - General Internal Medicine 05/13/20 Collection Analyst Relationship Specialty Start Date End Date Cinthia Puente MD [address] [facility] [place] [address] PCP - General Internal Medicine 05/13/20 [place]in Mariee [place] [id number] [place] [address] Lumber Inspector Cardiology 05/18/22 Collection Analyst Relationship Specialty Start Date End Date Cinthia Puente MD [address] [facility] [place] [address] PCP - General Internal Medicine 05/13/20 Kristin Mariee [place] [id number] [place] [address] Lumber Inspector Cardiology 05/18/22 Collection Analyst Relationship Specialty Start Date End Date Cinthia Puente MD [address] [facility] [place] [address] PCP - General Internal Medicine 05/13/20 Kristin Mariee [place] [id number] [place] [address] Lumber Inspector Cardiology 05/18/22 Collection Analyst Relationship Specialty Start Date End Date Fiorella Puente MD [address] [place] [place], [place] [id number] PCP - General Internal Medicine 05/13/20 Kristin Mariee [place] [id number] [place] [address] Lumber Inspector Cardiology 05/18/22 Collection Analyst Relationship Specialty Start Date End Date Fiorella Puente MD [address] [place] [place], [place] [id number] PCP - General Internal Medicine 05/13/20 Kristin Mariee MD [address] [place] [address] Lumber Inspector Cardiology 05/18/22 Collection Analyst Relationship Specialty Start Date End Date Fiorella Puente MD PCP - General Internal Medicine 05/13/20 Kristin Mariee MD [address] [place] [address] Lumber Inspector Cardiology 05/18/22 Collection Analyst Relationship Specialty Start Date End Date Fiorella Puente MD PCP - General Internal Medicine 05/13/20 Kristin Mariee MD [address] [place] [address] Lumber Inspector Cardiology 05/18/22 Collection Analyst Relationship Specialty Start Date End Date Fiorella Puente MD PCP - General Internal Medicine 05/13/20 Kristin Mariee MD [address] [place] [address] Lumber Inspector Cardiology 05/18/22 Collection Analyst Relationship Specialty Start Date End Date Fiorella Puente MD PCP - General Internal Medicine 05/13/20 [place] [address] [place] [address] Lumber Inspector Cardiology 05/18/22 Collection Analyst Relationship Specialty Start Date End Date Fiorella Puente MD PCP - General Internal Medicine 05/13/20 [place] [address] [place] [address] Lumber Inspector Cardiology 05/18/22 Collection Analyst Relationship Specialty Start Date End Date Fiorella Puente MD PCP - General Internal Medicine 05/13/20 [place] [address] [place] [address] Lumber Inspector Cardiology 05/18/22 Collection Analyst Relationship Specialty Start Date End Date Fiorella Puente MD [address] [place] [address] PCP - General Internal Medicine 07/20/23 [place] [address] [place] [address] Lumber Inspector Cardiology 05/18/22 Collection Analyst Relationship Specialty Start Date End Date Fiorella Puente MD [address] [place] [address] PCP - General Internal Medicine 07/20/23 [place] [address] [place] [address] Lumber Inspector Cardiology 05/18/22 Collection Analyst Relationship Specialty Start Date End Date Fiorella Puente MD [address] [place], [place] [address] PCP - General Internal Medicine 07/20/23 [place] [address] [place], [place] [id number] Lumber Inspector Cardiology 05/18/22 Collection Analyst Relationship Specialty Start Date End Date Fiorella Puente MD [address] [place], [place] [address] PCP - General Internal Medicine 07/20/23 [place] [address] [place], [place] [id number] Lumber Inspector Cardiology 05/18/22 FOR RECORDS PERTAINING TO PATIENTS WHO ARE OR HAVE BEEN ENROLLED IN A CHEMICAL DEPENDENCY/SUBSTANCEABUSE PROGRAM, SOME INFORMATION MAY BE OMITTED. This clinical summary was aggregated from multiple sources. Caution should be exercised in using it in the provision of clinical care. This summary normalizes information from multiple sources, and as a consequence, information in this document may materially change the coding, format and clinical context of patient data. In addition, data may be omitted in some cases. CLINICAL DECISIONS SHOULD BE BASED ON THE PRIMARY CLINICAL RECORDS. [facility]. provides no warranty or guarantee of the accuracy or completeness of information in this document.
[2024-08-11 12:37] LABS: Absolute Lymphocyte Count 1.05 X10^3/uL (0.83-4.51); Absolute Neutrophil Count 6.2 X10^3/uL (2.0-7.7); Basophil# 0.04 X10^3/uL; Basophil% 0.5 % (0-1); Eosinophil# 0.12 X10^3/uL; Eosinophils% 1.5 % (0-5); Hematocrit 43.1 % (37-47); Lymphocyte # 1.05 X10^3/ul (0.83-4.51); Lymphocyte % 13.2 % (19-41); Mean Corp Hgb Conc 32.5 g/dL (32-36); Mean Corpuscular Hgb 27.9 pg (27.0-32.0); Mean Corpuscular Volume 85.9 fL (81-99); Monocyte# 0.54 X10^3/uL; Monocyte% 6.8 % (0-10); NRBC Flagged by Analyzer 0 % (0-5); Neutrophil # 6.21 X10^3/uL (2.7-7.7); Neutrophil % 77.9 % (47-70); Platelet Count 233 K/mm3 (150-450); RBC Distribution Width CV 14.1 % (11.6-14.6); RBC Distribution Width SD 43.9 fl (35.1-43.9); Red Blood Count 5.02 M/mm3 (4.2-5.4)
[2024-08-11 13:03] LABS: Vitamin D,25 Hydroxy 55.2 ng/mL
[2024-08-11 13:39] LABS: AST(SGOT) 24 U/L (15-37); Alanine Aminotransfer ALT/SGPT 20 U/L (13-56); Albumin, Serum 3.9 g/dL (3.2-5.0); Alkaline Phosphatase 92 U/L (45-117); Anion Gap 11 (5-15); BUN 17 mg/dL (7-18); BUN/Creat Ratio 18.4 RATIO (10-20); Calcium,Total 9.4 mg/dL (8.5-10.1); Chloride 110 mmol/L (98-107); Cholesterol 165 mg/dL (200); Creatinine, Serum 0.92 mg/dL (0.55-1.02); EST Glomerular Filtration Rate 63 mL/min (>60); Est Glom Filt Rate - Afr Amer 76 mL/min (>60); Globulin 3.9 g/dL (2.2-4.2); Glucose 99 mg/dL (74-106); High Density Lipoprotein 69 mg/dL; Potassium 3.9 mmol/L (3.5-5.1); Protein, Total 7.8 g/dL (6.4-8.2); Sodium Level 140 mmol/L (136-145); Triglycerides 130 mg/dL; Very Low Density Lipoprotein 26 mg/dL (5-40)
== END | disposition home or self-care (01) ==
LOC: BIMLAB 10:56
PROVIDERS: PCP Internal Medicine; Referring Provider Internal Medicine; Visit Provider Internal Medicine
DX: I10 Essential (primary) hypertension (principal); E55.9 Vitamin D deficiency, unspecified
CPT/HCPCS: 36415; 80053; 80061; 82306; 85025